=== PATIENT | male | born 1950 | race Caucasian/White ===

== ENCOUNTER 2016-09-19 00:44 | Inpatient (IN) | payer OTHER ==
[2016-09-19 02:13] LABS: Basophils % (Auto) 0.8 % (0.0-1.8); Eosinophils % (Auto) 2.8 % (0.0-4.3); Hematocrit 36.8 % (35.5-45.6); Hemoglobin 12.2 gm/dl (11.8-15.2); Mean Corpuscular HGB Conc 33 % (32-34); Mean Corpuscular Hemoglobin 30 pg (28-32); Mean Corpuscular Volume 91 fl (84-94); Platelet Count 260 K/mm3 (140-440); Red Blood Count 4.05 M/mm3 (3.65-5.03); White Blood Count 8.7 K/mm3 (4.5-11.0)
[2016-09-19 02:22] LABS: Anion Gap 14 mmol/L; BUN/Creatinine Ratio 29.09; Blood Urea Nitrogen 32 mg/dL (9-20); Calcium 9.7 mg/dL (8.4-10.2); Carbon Dioxide 31 mmol/L (22-30); Chloride 81.6 mmol/L (98-107); Potassium 4.3 mmol/L (3.6-5.0); Sodium 122 mmol/L (137-145)
[2016-09-19 02:26] LABS: Glucose 626 mg/dL (75-100)
--- NOTE | 2016-09-19 02:59 | XRay Report ---
FINAL REPORT PROCEDURE: XR CHEST ROUTINE 2V TECHNIQUE: PA and lateral chest radiographs were obtained. CPT 10258 HISTORY: COUGH/HEMOPTISIS COMPARISON: No prior studies are available for comparison. FINDINGS: Heart: Normal. Mediastinum/Vessels: There is a 3 centimeter right hilar mass.. Lungs/Pleural space: Lungs are expanded. There is a nodular density at the right lung base measuring 2 centimeters suggesting possible mass. Further evaluation with CT suggested. There are no discrete infiltrates.. Bony thorax: No acute osseous abnormality. Other: IMPRESSION: Right hilar and right lower lobe masses suspicious for malignancy. There are no discrete infiltrates. There are no effusions or pneumothoraces. The heart size is normal..
[2016-09-19] MEDS ORDERED: NACL 0.9% 1000 ML 1,000 ML IV ONE (03:59)
[2016-09-19] MEDS ORDERED: NACL ONE (06:29)
[2016-09-19] MEDS ORDERED: PROVENTIL IH ONE (06:36)
--- NOTE | 2016-09-19 06:40 | Emergency Department Report ---
ED Shortness of Breath HPI - General Chief Complaint: Dyspnea/Respdistress Stated Complaint: COUGHING BLOOD Time Seen by Provider: 09/19/16 06:10 Source: patient, family Mode of arrival: Ambulatory Limitations: Language Barrier (marketing education teacher was used.) - History of Present Illness Initial Comments: marketing education teacher used. 65-year-old male with past medical history of diabetes is presenting to the emergency department complaining of cough. Onset 3 days prior. No inciting factors such as travel. Patient states cough is dry intermittent, no worsening or relaxing factors.Family member of the last 24 hours he's had multiple episodes of hemoptysis with cough. Usually small amount of blood is seen. Patient was generalized weakness. Patient denies: Fever/chills, chest pain, abdominal pain, nausea/vomiting/diarrhea. MD Complaint: shortness of breath, cough -: Gradual, days(s) (3) Severity: moderate Quality: dull Consistency: intermittent Improves With: nothing Worsens With: nothing Associated Symptoms: pain with inspiration, cough, sputum production, hemoptysis - Related Data Home Medications Medication Instructions Recorded Confirmed Last Taken Amoxicillin [Trimox CAP] 500 mg PO Q8H 09/19/16 09/19/16 09/17/16 Dextrose [Glucose] 4 gm PO DAILY 09/19/16 09/19/16 09/17/16 Enalapril Maleate [Vasotec] 20 mg PO DAILY 09/19/16 09/19/16 09/17/16 Allergies Allergy/AdvReac Type Severity Reaction Status Date / Time No Known Allergies Allergy Verified 09/19/16 01:03 ED Review of Systems ROS: Stated complaint: COUGHING BLOOD Other details as noted in HPI Comment: All other systems reviewed and negative Respiratory: cough, shortness of breath. denies: orthopnea, SOB with exertion, SOB at rest, wheezing Cardiovascular: denies: chest pain, palpitations Gastrointestinal: denies: abdominal pain, nausea, vomiting ED Past Medical Hx - Past Medical History Previous Medical History?: Yes Hx Diabetes: Yes - Surgical History Past Surgical History?: No - Social History Smoking Status: Never Smoker Substance Use Type: None - Medications Home Medications: Home Medications Medication Instructions Recorded Confirmed Last Taken Type Amoxicillin [Trimox CAP] 500 mg PO Q8H 09/19/16 09/19/16 09/17/16 History Dextrose [Glucose] 4 gm PO DAILY 09/19/16 09/19/16 09/17/16 History Enalapril Maleate [Vasotec] 20 mg PO DAILY 09/19/16 09/19/16 09/17/16 History ED Physical Exam - General Limitations: Language Barrier General appearance: alert, in no apparent distress - Head Head exam: Present: atraumatic, normocephalic - Eye Eye exam: Present: normal appearance - ENT ENT exam: Present: mucous membranes moist - Neck Neck exam: Present: normal inspection - Respiratory Respiratory exam: Present: normal lung sounds bilaterally. Absent: respiratory distress, wheezes, rales, rhonchi, chest wall tenderness, accessory muscle use, decreased breath sounds - Cardiovascular Cardiovascular Exam: Present: regular rate, normal rhythm. Absent: systolic murmur, diastolic murmur, rubs, gallop - GI/Abdominal GI/Abdominal exam: Present: soft, normal bowel sounds - Rectal Rectal exam: Present: deferred - Extremities Exam Extremities exam: Present: normal inspection - Back Exam Back exam: Present: normal inspection - Neurological Exam Neurological exam: Present: alert, oriented X3 - Psychiatric Psychiatric exam: Present: normal affect, normal mood - Skin Skin exam: Present: warm, dry, intact, normal color. Absent: rash ED Course Vital Signs 09/19/16 09/19/16 09/19/16 01:03 03:05 04:00 Temperature 98.2 F 98.0 F Pulse Rate 85 65 87 Pulse Rate [ From Monitor] Respiratory 22 18 18 Rate Blood Pressure 144/74 Blood Pressure 171/74 148/59 [Left] Blood Pressure [Right Arm] O2 Sat by Pulse 95 100 98 Oximetry 09/19/16 09/19/16 09/19/16 06:00 07:54 08:38 Temperature 98.5 F Pulse Rate 85 106 H 105 H Pulse Rate [ From Monitor] Respiratory 18 20 Rate Blood Pressure Blood Pressure 155/69 125/71 [Left] Blood Pressure [Right Arm] O2 Sat by Pulse 98 93 Oximetry 09/19/16 09/19/16 09/19/16 08:45 09:56 12:00 Temperature 98.6 F 98.9 F Pulse Rate 108 H 94 H Pulse Rate [ 83 From Monitor] Respiratory 22 22 18 Rate Blood Pressure Blood Pressure 124/66 129/63 [Left] Blood Pressure 130/62 [Right Arm] O2 Sat by Pulse 100 97 96 Oximetry - Reevaluation(s) Reevaluation #1: 09/19/16 08:18 ese teacher ID # [id number] Reevaluation #2: 09/19/16 08:41 Patient has been admitted to the medicine service. ED Medical Decision Making - Lab Data Result diagrams: 09/23/16 03:10 09/23/16 03:10 - EKG Data -: EKG Interpreted by Me (105) EKG shows normal: sinus rhythm, axis (upright ), intervals (QTC: 504) Rate: tachycardia - EKG Data When compared to previous EKG there are: previous EKG unavailable Interpretation: other (PT EKG consistent with LBBB ) - Radiology Data Radiology results: report reviewed, image reviewed Final impression: There is no pulmonary embolism. There is no thoracic aortic dissection or aneurysm. There are multiple cavitating masses in the right lower lobe as well as small lesions in the right upper lobe and left lower lobe. Findings are suspicious for malignancy. Dr Surinder PENALOZA - Medical Decision Making 65-year-old male with past medical history of hypertension, diabetes presenting to the ED complaining of shortness of breath, hemoptysis. Symptoms are likely secondary to lung CA. Patient will be admitted to medicine service for further workup. Patient and Family agrees to plan.. - Differential Diagnosis PE, PNA, Dissection , DKA Critical Care Time: Yes Critical care attestation.: If time is entered above; I have spent that time in minutes in the direct care of this critically ill patient, excluding procedure time. Critical Care Time: 35 ED Disposition Clinical Impression: Cough, Hemoptysis, Lung mass, Shortness of breath, Hyperglycemia Disposition: OP ADMIT IP TO THIS HOSP Is pt being admited?: Yes Does the pt Need Aspirin: No Condition: Stable
--- NOTE | 2016-09-19 07:22 | Cat Scan Report ---
FINAL REPORT PROCEDURE: CT ANGIO CHEST TECHNIQUE: Computerized tomographic angiography of the chest was performed after the IV injection of iodinated nonionic contrast including image processing. The image data was postprocessed using 2-dimensional multiplanar reformatted (MPR) and 3-dimensional (MIP and/or volume rendered) techniques. HISTORY: right hilar mass and hemoptysis COMPARISON: Chest x-ray 7 FINDINGS: Heart and pericardium: Normal. Thoracic aorta: There is no aneurysm or dissection.. Pulmonary vasculature: There is no pulmonary embolism.. Lymph nodes: There is right hilar adenopathy. Lungs: There is a solid spiculated noncalcified mass in the anterior segment of the right upper lobe on image 80 measuring 13 millimeters. There are multiple masses and nodules in the right lower lung. The largest is approximately 2.8 centimeters in diameter. There are multiple cavitating mass is among these which suggests possibility of cavitating metastatic malignancy. Cavitating granulomas or septic emboli also considered but less likely. There are tiny nodular densities versus infiltrate in the superior segment of the left lower lung.. There is a 3 millimeter calcified granuloma at the left lung base. Pleural space: There is no pleural effusion or pneumothorax. Musculoskeletal structures: No significant abnormality. Upper abdominal structures: No significant abnormality. IMPRESSION: There is no pulmonary embolism. There is no thoracic aortic aneurysm or dissection. There are multiple cavitating masses in the right lower lobe as well as smaller lesions in the right upper lobe and left lower lobe. Findings are suspicious for malignancy.
--- NOTE | 2016-09-19 08:40 | Admit Criteria Form ---
Admission Criteria Documentation: PULMONARY DISEASE GRG Clinical Indications for Admission to Inpatient Care ( Place 'X' for any and all applicable criteria): Hospital admission is needed for appropriate care of the patient because of 1 or more of the following(1)(2): [ ]I. Impending or actual respiratory arrest. See Respiratory Failure GRG guideline for severe respiratory disease and long-term mechanical ventilation patients. (3)(4) (5) [ ]II. Severe airflow or ventilation abnormalities (not responsive to emergency and observation care treatment as appropriate) as indicated by 1 or more of the following (6)(7)(8)(9) : [ ]a) PCO2 greater than 42 mm Hg (5.6 kPa) and pH less than 7.35 (new) [ ]b) Documented PCO2 increased more than 5 mm Hg (0.7 kPa) from disease baseline [ ]c) Airflow measurements[A] less than 60% of previous best or predicted (eg, peak expiratory flow rate less than 300 L/min) despite intensive emergent treatment(B) [ ]d) Required respiratory treatments that are performable only in acute inpatient setting [ ]III. Severe respiratory findings (not responsive to emergency and observation care treatment as appropriate) including 1 or more of the following(6)(9)(10): [ ]a) Respiratory distress as indicated by ALL of the following(6)(11): [ ]i) Patient with 1 or more of the following: [X]1) Dyspnea (difficulty breathing) [ ]2) Tachypnea [ ]3) Abnormal breathing pattern (eg, chest retractions) [ ]4) Other evidence of difficulty breathing [ ]ii) Evidence of respiratory compromise indicated by 1 or more of the following: [ ]1) Hypoxemia [ ]2) Altered mental status [ ]3) Other evidence of respiratory compromise (eg, pulmonary edema on chest x-ray) [ ]b) Stridor [ ]c) Gross hemoptysis(12) [ ]d) Acute cyanosis [ ]IV. Chronic lung disease with severe deterioration (not responsive to emergency and observation care treatment as appropriate) as indicated by 1 or more of the following(7) (13): [ ]a) SaO2 5% below baseline in patient with chronic hypoxemia [ ]b) New requirement for supplemental oxygen to keep SaO2 at baseline or acceptable level [ ]c) Required supplemental oxygen performable only in acute inpatient setting [ ]d) Severe airflow or ventilation abnormalities [ ]e) Previouslymobile patient unable to walk between rooms [ ]f) Inability to eat or sleep due to dyspnea [ ]g) Altered mental status that is severe or persistent [ ]V. Empyema or lung abscess(14)(15) [ ]Vl. Severe atelectasis or lung collapse(16)(17) [ ]Galo. Tuberculosis requiring inpatient treatment as indicated by 1 or more of the following(18)(19)(20)(21): [ ]a) Diagnosis suspected (eg, symptomatic patient from endemic area or in high-risk population, with abnormal chest imaging) and cannot be ruled out within observation care timeframe (ie, sputum analysis, nucleic acid amplification techniques not rapidly available or not diagnostic) [ ]b) Severely symptomatic patient (eg, Hypoxemia, Hemodynamic instability, Tachypnea) [ ]c) Vzohv-wzys-dualzglzl infection suspected in newly diagnosed patient (eg, treatment regimen may require near-term adjustment) [ ]d) Newly diagnosed patient at high-risk of short-term deterioration (eg, HIV positive, frail, immunocompromised, chronic lung disease) [ ]e) High infectivity suspected (eg, laryngeal disease, cavitary pulmonary lesions, ongoing positivity of sputum) and 1 or more of the following: [ ]i) Unexposed household contacts at high risk (eg, immunocompromised, elderly, infants, chronic lung disease) [ ]ii) Patient unable or unwilling to avoid exposing others (eg, significant psychiatric disease, substance abuse, developmental disability) [ ]f) Complication of tuberculosis requiring inpatient treatment (eg , constrictive pericarditis, tubercular meningitis) [ ]g) Hospitalization mandated by public health authority (eg, patient continually noncompliant with directly observed therapy) [ ]VIII. High-risk pulmonary infection as indicated by 1 or more of the following(22)(23)(24)(25): [ ]a) Temperature less than 95 degrees F (35 degrees C) or greater than 103.1 degrees F (39.5 degrees C) [ ]b) Hemodynamic instability [ ]c) Immunocompromised patient (eg, AIDS, post transplant, neutropenic)(26)(27) [ ]d) History of severe COPD(28) [ ]e) History of severely symptomatic congestive heart failure(29) [ ]f) Other high-risk comorbidity (eg, poorly controlled diabetes, cirrhosis, chronic renal insufficiency) [ ]g) Hypoxemia [ ]h) severe stridor (30) [ ]i) Outpatient, observation, or recovery facility therapy has failed, is not appropriate, or is not feasible. [ ]IX. Complications of tracheostomy that remains after emergency or observation level care(31)(32)(33)(34) [ ]X. Respiratory complications of organ transplant (eg, rejection, respiratory failure, respiratory infection)(27) [ ]XI. Severe pulmonary arterial hypertension or pulmonary vascular disease requiring inpatient care indicated by 1 or more of the following(35)(36)(37)(38): [ ]a) Initiation or change of vasodilators (IV, subcutaneous, or inhaled) or other vasoactive medications needed [ ]b) IV anticoagulation needed (eg, immediate anticoagulation necessary, alternatives not appropriate) [ ]c) Arterial or pulmonary artery catheter monitoring needed due to infusion or other treatment [ ]XII. Cystic fibrosis requiring inpatient care as indicated by 1 or more of the following(39)(40): [ ]a) Severe exacerbation that does not respond to intensified home therapy(41) [ ]b) Severe exacerbation with patient unable to perform prescribed treatments at home [ ]c) Pneumonia [ ]d) Pneumothorax(42) [ ]e) Atelectasis [ ]f) Hemoptysis(43) [ ]XIII. Bronchiectasis requiring inpatient care as indicated by 1 or more of the following(44)(45): [ ]a) Respiratory distress [ ]b) Severe exacerbation and outpatient or observation care therapy has failed, is not appropriate, or is not feasible. [ ]XIV. Sarcoidosis requiring inpatient care as indicated by 1 or more of the following(46)(47)(48): [ ]a) Respiratory distress [ ]b) Cardiac involvement with arrhythmia(49) [ ]c) Outpatient or observation care therapy has failed, is not appropriate, or is not feasible. [ ]XV. Intestitial lung disease requiring inpatient care as indicated by 1 or more of the following(50)(51): [ ]a) Respiratory distress [ ]b) Severe exacerbation and outpatient or observation care therapy has failed, is not appropriate, or is not feasible [ ]XVI. Allergic pneumonitis requiring inpatient care as indicated by 1 or more of the following(52): [ ]a) Respiratory distress [ ]b) Acute eosinophilic pneumonia [ ]c) [place]urg Alyssa with cardiac involvement [ ]d) Outpatient or observation care therapy has failed, is not appropriate, or is not feasible [ ]XVIl. Severe right heart failure requiring inpatient care as indicated by 1 or more of the following(35)(53)(54): [ ]a) Respiratory distress [ ]b) Debilitating anasarca that remains after emergency or observation level care (eg, tissue [ ]c) breakdown with severe infection, inability to void due to edema) [C](41)(42)(43)(44) [ ]d) Hemodynamic instability [ ]e) Syncope [ ]f) Angina that requires inpatient care (eg, not treatable in emergency or observation level of care) [ ]g) Increasing organ failure (eg, liver congestion with significant and worsening or new elevation of transaminases) [ ]XVIll. Injury requiring inpatient care (medical) as indicated by 1 or more of the following(59)(60)(61) [ ]a) Significant inhalation injury (eg, smoke inhalation, other toxic inhalation)(62)(63)(64) [ ]b) Airway obstruction that remains or is unstable after emergency or observation level care(65)(66) [ ]c) Severe pain requiring acute inpatient management [ ]d) Lung contusion(67) [ ]e) Flail chest(68) [ ]f) Bronchial tree injury [ ]g) Air or fat emboli [ ]h) Other injury not treatable in emergency or observation level care (eg, hemothorax)(55) [ ]XlX. Pulmonary hemorrhage or significant hemoptysis(12)(43)(69) [ ]XXl. Complications of transplanted lung indicated by 1 or more of the following(70)(71) [ ]a) Acute graft rejection requiring inpatient management (eg, intravenous immunosuppression)(72)(73)(74) [ ]b) Failure of transplant lung as indicated by 1 or more of the following(75)(76): [ ]i) Anastomotic leak [ ]ii) Airway ischemia or necrosis [ ]iii) Airway fistula [ ]iv) Obstructing granulation tissue requiring intervention [ ]v) Bronchial stenosis or stricture requiring intervention [ ]vi) Tracheobronchomalacia requiring intervention [ ]vii) Severe airflow or ventilation abnormalities [ ]viii) Severe respiratory findings [ ]c) Infection requiring inpatient management (eg, Hemodynamic instability, need for intravenous antimicrobial treatment)(77)(78)(79)(80)(81)(82 [ ]d) Other complication of transplanted lung (eg, obliterative bronchiolitis, plastic bronchitis, thrombotic microangiopathy, constrictive pericarditis) requiring inpatient management(83)(84)(85)(86)(87) [ ]XXll. Inpatient palliative care needed.[D](88)(89)(90)(91) [ X]XXlll. Pulmonary Disease condition, symptom, or finding for which emergency and observation care have failed or are not considered appropriate. The original [facility] [employer] content created by [employer] has been revised. The portions of the content which have been revised are identified through the use of italic text or in bold, and [employer] has neither reviewed nor approved the modified material. All other unmodified content is copyright [facility] [employer]. Please see references footnoted in the original [facility] [employer] edition 2017 Admission Criteria Met: Yes
[2016-09-19] MEDS ORDERED: D50W (25GM) IV PRN (09:00)
[2016-09-19] MEDS ORDERED: NACL 0.9% 1000 ML 1,000 ML IV SCH (09:00)
[2016-09-19] MEDS ORDERED: TYLENOL PO PRN (09:00)
[2016-09-19] MEDS ORDERED: ZOFRAN IV PRN (09:00)
[2016-09-19] MEDS ORDERED: DULCOLAX PR PRN (09:00)
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
[2016-09-19] MEDS ORDERED: LEVAQUIN 500MG/100ML 500 MG/100 ML BAG IV SCH (10:00)
--- NOTE | 2016-09-19 10:14 | Cat Scan Report ---
CT ABDOMEN AND PELVIS WITHOUT CONTRAST INDICATION: Metastatic carcinoma. COMPARISON: CT chest from earlier today. FINDINGS: Noncontrast abdomen and pelvis CT performed, though demonstrates excreted contrast from earlier administration. LUNG BASES: Numerous cavitary lesions and non-cavitating foci/masses seen at the lung bases, greatest in the right lower lobe. Largest thickwalled cavitary lesion is approximately 1.8 cm on axial image 30, series 2 while subtle air-fluid level within similar such lesion also seen on axial image 11. Largest solid mass is approximately 2.9 cm posterior to the hilum, axial image 7. Small nodules also seen in the right middle lobe, the largest anterior cardiophrenic measuring 1.3 cm, axial image 32. Subtle left lower lobe interstitial nodularity also noted with slight atelectasis as also a 4 mm left lower lobe calcified granuloma, axial image 8. No effusions. Normal heart size. Air-filled distal esophageal prominence/thickening, not excluded for gastroesophageal reflux and/or hiatal hernia, amongst others. ABDOMEN: Please note that sensitivity to detect small visceral lesions is limited due to the absence of intravenous or oral contrast. Symmetric renal contrast excretion. No hydronephrosis. Tiny splenic calcified granuloma medially. Otherwise grossly unremarkable unenhanced liver, spleen, gallbladder, pancreas, adrenals, nonaneurysmal abdominal aorta and IVC. No ascites or size significant adenopathy. Nonopacified GI tract evaluation limited, though grossly nonobstructive. Mild to moderate colonic stool. PELVIS: Proximal sigmoid contains air, though mid to distal sigmoid decompressed and inadequately assessed with subtle wall thickening/prominence as on axial image 237, series 2 not excluded pathologic versus suboptimal distention related. Unremarkable rectum. Streak artifact from excreted urinary bladder contrast limits exam. Small prostatic calcifications. Prostate may be age-appropriate, though also correlated for clinically and with PSA. Unremarkable seminal vesicles. No free fluid or significant adenopathy. Approximately 1 cm borderline grade 2 anterolisthesis of L5 over S1 with severe disc narrowing. Bilateral L5 pars defects as well. Bilateral SI joint degenerative bridging with partial joint space obliteration, more so on the right. Left gluteal calcified injection granuloma. CONCLUSION: 1. Innumerable cavitating and non-cavitating lesions/masses at the imaged lung bases, greatest in the right lower lobe, as described. Neoplastic/metastatic versus infectious etiologies should primarily be considered, though exact cause remains unknown at this time. 2. Nonspecific mid to distal sigmoid CT appearance, as detailed above. Possible constipation as well. Followup on subsequent exams or further with sigmoidoscopy, as appropriate. 3. Various other incidental findings on this unenhanced exam, including severe L5-S1 degeneration, as described. Thank you for the opportunity to participate in this patient's care.
[2016-09-19] MEDS ORDERED: PROVENTIL IH PRN (11:00)
[2016-09-19] MEDS: LOVENOX SUB-Q SCH (11:56)
[2016-09-19] MEDS: NOVOLOG SUB-Q SCH ×3 (12:13→21:46)
[2016-09-19] MEDS: DUONEB *Not for PRN Use IH SCH ×2 (16:05→19:37)
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
[2016-09-19 16:40] LABS: Bilirubin,Urine NEG (Negative); Blood,Urine NEG (Negative); Ketones,Urine 20 mg/dL (Negative); Leukocyte Esterase,Urine NEG (Negative); Mucus,Urine FEW /HPF; Nitrite,Urine NEG (Negative); Protein,Urine <15 mg/dL mg/dL (Negative); Urobilinogen,Urine < 2.0 mg/dL (<2.0)
[2016-09-19] MEDS ORDERED: NOVOLOG SUB-Q ONE (18:38)
[2016-09-19] MEDS ORDERED: LEVEMIR SUB-Q SCH (22:00)
[2016-09-20] MEDS: DUONEB *Not for PRN Use IH SCH ×4 (01:35→19:55)
[2016-09-20 05:18] LABS: Hematocrit 36.9 % (35.5-45.6); Hemoglobin 12.5 gm/dl (11.8-15.2); Mean Corpuscular HGB Conc 34 % (32-34); Mean Corpuscular Hemoglobin 31 pg (28-32); Mean Corpuscular Volume 90 fl (84-94); Platelet Count 268 K/mm3 (140-440); Red Blood Count 4.08 M/mm3 (3.65-5.03); Red Cell Distribution Width 14.4 % (13.2-15.2); White Blood Count 14.2 K/mm3 (4.5-11.0)
[2016-09-20 05:33] LABS: BUN/Creatinine Ratio 44.28; Blood Urea Nitrogen 31 mg/dL (9-20); Carbon Dioxide 22 mmol/L (22-30); Chloride 97.6 mmol/L (98-107); Glucose 354 mg/dL (75-100); Potassium 4.3 mmol/L (3.6-5.0); Sodium 135 mmol/L (137-145)
[2016-09-20 06:21] LABS: Anion Gap 20 mmol/L
[2016-09-20 07:47] LABS: Basophils % (Manual) 0 % (0.0-1.8); Blastocytes % (Manual) 0 %; Eosinophils % (Manual) 0 % (0.0-4.3)
[2016-09-20 07:48] LABS: RBC Morphology Normal
[2016-09-20 07:49] LABS: Diff Status Complete
[2016-09-20] MEDS: NOVOLOG SUB-Q SCH ×4 (07:56→23:01)
[2016-09-20] MEDS: ZESTRIL PO SCH (09:35)
[2016-09-20] MEDS: LOVENOX SUB-Q SCH (09:36)
[2016-09-20] MEDS ORDERED: NON-FORMULARY (Enalapril Maleate [Vasotec] 20 MG) PO SCH (10:00)
--- NOTE | 2016-09-20 11:45 | Progress Note ---
Subjective Date of service: 09/20/16 Interval history: Assessment and plan: Multiple cavitary and non-cavitary lung masses: Right more than left Rule out lung cancer Pulmonary and oncology consults were requested. Notes pending He has been a smoker but apparently quit smoking 20 years ago New onset uncontrolled diabetes: Continue insulin sliding scale coverage. We will increase basal insulin to 12 units of NPH twice daily Hyperosmolar nonketotic state : Blood sugars trending down but still poorly controlled. Continue sliding-scale coverage and basal insulin Hypernatremia: Secondary to severe hyperglycemia. This has resolved Weight loss and failure to thrive: Likely secondary to lung neoplasm. Await oncology and pulmonary evaluations Hypertension: Well-controlled. Continue ACEI Subjective: Patient is awake and alert. No apparent distress Family in the room Has occasional blood streaks when he coughs up but states this has significantly improved Complains of pain in the chest lower back and over the right scapular area Objective - Constitutional Vitals: Vital Signs - 12hr 09/20/16 09/20/16 09/20/16 01:36 08:52 09:09 Temperature Pulse Rate Pulse Rate [ 78 82 81 Bilateral Upper Lobe] Pulse Rate [ From Monitor] Respiratory Rate Respiratory 15 16 18 Rate [Bilateral Upper Lobe] Blood Pressure Blood Pressure [Right Arm] O2 Sat by Pulse Oximetry 09/20/16 09/20/16 09:35 10:00 Temperature 97.7 F Pulse Rate 63 Pulse Rate [ Bilateral Upper Lobe] Pulse Rate [ 64 From Monitor] Respiratory 18 Rate Respiratory Rate [Bilateral Upper Lobe] Blood Pressure 148/49 Blood Pressure 148/49 [Right Arm] O2 Sat by Pulse 96 Oximetry General appearance: Present: no acute distress - EENT Eyes: PERRL, EOM intact ENT: hearing intact, clear oral mucosa, no thrush - Neck Neck: supple, normal ROM - Respiratory Respiratory effort: normal Respiratory: bilateral: CTA - Cardiovascular Rhythm: regular Heart Sounds: Present: S1 & S2 Extremities: No edema - Gastrointestinal General gastrointestinal: Present: soft, non-tender. Absent: hepatomegaly, splenomegaly Rectal Exam: deferred - Integumentary Integumentary: clear, no rash - Musculoskeletal Musculoskeletal: strength equal bilaterally - Neurologic Neurologic: CNII-XII intact, no focal deficits - Labs CBC & Chem 7: 09/20/16 04:12 09/20/16 04:12 Labs: Abnormal lab results 09/19/16 09/19/16 09/19/16 Range/Units 11:59 16:44 18:06 WBC (4.5-11.0) K/mm3 Seg Neuts % (Manual) (40.0-70.0) % Lymphocytes % (Manual) (13.4-35.0) % Seg Neutrophils # Man (1.8-7.7) K/mm3 Lymphocytes # (Manual) (1.2-5.4) K/mm3 Sodium (137-145) mmol/L Chloride (98-107) mmol/L BUN (9-20) mg/dL Creatinine (0.8-1.5) mg/dL Glucose (75-100) mg/dL POC Glucose 321 H 479 H > 500 H (70-105) 09/19/16 09/19/16 09/20/16 Range/Units 20:58 22:38 04:12 WBC 14.2 H (4.5-11.0) K/mm3 Seg Neuts % (Manual) 93.0 H (40.0-70.0) % Lymphocytes % (Manual) 3.0 L (13.4-35.0) % Seg Neutrophils # Man 13.2 H (1.8-7.7) K/mm3 Lymphocytes # (Manual) 0.4 L (1.2-5.4) K/mm3 Sodium (137-145) mmol/L Chloride (98-107) mmol/L BUN (9-20) mg/dL Creatinine (0.8-1.5) mg/dL Glucose (75-100) mg/dL POC Glucose > 500 H 404 H (70-105) 09/20/16 09/20/16 Range/Units 04:12 07:37 WBC (4.5-11.0) K/mm3 Seg Neuts % (Manual) (40.0-70.0) % Lymphocytes % (Manual) (13.4-35.0) % Seg Neutrophils # Man (1.8-7.7) K/mm3 Lymphocytes # (Manual) (1.2-5.4) K/mm3 Sodium 135 L D (137-145) mmol/L Chloride 97.6 L (98-107) mmol/L BUN 31 H (9-20) mg/dL Creatinine 0.7 L (0.8-1.5) mg/dL Glucose 354 H (75-100) mg/dL POC Glucose 362 H (70-105)
[2016-09-20] MEDS ORDERED: NACL ONE (15:26)
--- NOTE | 2016-09-20 16:48 | Cat Scan Report ---
FINAL REPORT PROCEDURE: CT ABDOMEN PELVIS W CON TECHNIQUE: Computerized axial tomography of the abdomen and pelvis was performed after the IV injection of iodinated nonionic contrast. HISTORY: malignancy workup, fatigue, lung masses COMPARISON: 09/19/2016 FINDINGS: Visualized lower thorax: Numerous cavitary masses are again noted in the lung bases. Liver: Geographic low attenuation in the left hepatic lobe abutting the fissure is favored to be related to focal fatty infiltration. No enhancing masses are seen. Spleen: Normal size and attenuation. Gallbladder and biliary system: Normal. Pancreas: Normal. Adrenals: Normal. Kidneys: Normal. GI tract: No obvious mass is identified, however direct visualization with colonoscopy would be more sensitive. There is a large volume of stool seen throughout the colon, compatible with constipation. The appendix is visualized and does not appear inflamed. No evidence of bowel obstruction or acute inflammation. Lymph nodes and mesentery: Normal. Vasculature: Normal. Bladder: Normal. Reproductive organs: Prominent prostate gland, which measures up to 5.5 centimeters transverse. Peritoneum: No free fluid. Musculoskeletal structures: 3 millimeter sclerotic focus in the proximal right femur is nonspecific and could be a bone island. Bilateral L5 pars interarticularis defects with 1 centimeter anterolisthesis of L5 on S1. Other: None. IMPRESSION: As seen previously there are numerous lung base cavitary masses present, which may be related to metastatic disease or possibly infectious process. Less commonly, entity such as Mary Kate's granulomatosis can present with numerous cavitary lung nodules. Constipation. No discrete colonic mass is seen, however direct visualization with colonoscopy would be more sensitive. Prominent prostate gland
--- NOTE | 2016-09-20 17:44 | Progress Note ---
Assessment and Plan - Patient Problems (1) Cough Current Visit: Yes Status: Acute Plan to address problem: - equivocal story of prior r/o TB - will need to r/o TB here as still coughing and expectorating - PPD placed (2) Hemoptysis Current Visit: Yes Status: Acute Plan to address problem: - persistent but streaky - treat pneumonia empirically - follow AFB smears (3) Lung mass Current Visit: Yes Status: Acute Plan to address problem: - treat empirically - r/o TB - consider needle biopsy thereafter for persistent peripheral nodules (4) Pneumonia Current Visit: Yes Status: Acute Qualifiers: Pneumonia type: P Aspiration pneumonia type: A Laterality: L Lung location: L Plan to address problem: - continue current AB's - get ID input Subjective Date of service: 09/20/16 Principal diagnosis: Cavitory Pneumonia (? Aspiration); Hemoptysis (R/O TB) Interval history: Seen and examined at bedside; 24 hour events reviewed; nursing and respiratory care staff consulted; no adverse overnight events reported to me; resting peacefuly; still with streaky hemoptysis; no N/V/F/C Objective Vital Signs - 12hr 09/20/16 09/20/16 09/20/16 08:52 09:09 09:35 Temperature Pulse Rate 63 Pulse Rate [ Anterior Bilateral Throughout] Pulse Rate [ 82 81 Bilateral Upper Lobe] Pulse Rate [ From Monitor] Respiratory Rate Respiratory Rate [Anterior Bilateral Throughout] Respiratory 16 18 Rate [Bilateral Upper Lobe] Blood Pressure 148/49 Blood Pressure [Right Arm] O2 Sat by Pulse Oximetry 09/20/16 09/20/16 09/20/16 10:00 14:14 14:30 Temperature 97.7 F Pulse Rate Pulse Rate [ 74 95 H Anterior Bilateral Throughout] Pulse Rate [ Bilateral Upper Lobe] Pulse Rate [ 89 From Monitor] Respiratory 20 Rate Respiratory 16 18 Rate [Anterior Bilateral Throughout] Respiratory Rate [Bilateral Upper Lobe] Blood Pressure Blood Pressure 148/49 [Right Arm] O2 Sat by Pulse 95 Oximetry Constitutional: no acute distress, alert Eyes: non-icteric ENT: oropharynx moist Neck: supple, no lymphadenopathy Effort: mildly labored Ascultation: Bilateral: rales (RLL) Cardiovascular: regular rate and rhythm Gastrointestinal: normoactive bowel sounds, soft, non-tender, non-distended Integumentary: normal Extremities: no cyanosis, no edema, pulses normal, no ischemia or petechiae Neurologic: normal mental status, non-focal exam Psychiatric: mood appropriate, affect normal CBC and BMP: 09/21/16 07:49 09/21/16 07:49 Abnormal lab findings: Abnormal Labs 09/19/16 09/19/16 09/19/16 11:59 16:44 18:06 WBC Seg Neuts % (Manual) Lymphocytes % (Manual) Seg Neutrophils # Man Lymphocytes # (Manual) Sodium Chloride BUN Creatinine Glucose POC Glucose 321 H 479 H > 500 H 09/19/16 09/19/16 09/20/16 20:58 22:38 04:12 WBC 14.2 H Seg Neuts % (Manual) 93.0 H Lymphocytes % (Manual) 3.0 L Seg Neutrophils # Man 13.2 H Lymphocytes # (Manual) 0.4 L Sodium Chloride BUN Creatinine Glucose POC Glucose > 500 H 404 H 09/20/16 09/20/16 09/20/16 04:12 07:37 11:41 WBC Seg Neuts % (Manual) Lymphocytes % (Manual) Seg Neutrophils # Man Lymphocytes # (Manual) Sodium 135 L D Chloride 97.6 L BUN 31 H Creatinine 0.7 L Glucose 354 H POC Glucose 362 H 415 H 09/20/16 16:25 WBC Seg Neuts % (Manual) Lymphocytes % (Manual) Seg Neutrophils # Man Lymphocytes # (Manual) Sodium Chloride BUN Creatinine Glucose POC Glucose [address] scan - chest: image reviewed
[2016-09-20] MEDS ORDERED: APLISOL ID ONE (19:45)
[2016-09-20] MEDS: ZOSYN/NS 4.5GM/100ML 4.5 GM/100 ML VIAL IV SCH (22:46)
[2016-09-21] MEDS: DUONEB *Not for PRN Use IH SCH ×4 (01:51→19:21)
[2016-09-21] MEDS: ZOSYN/NS 4.5GM/100ML 4.5 GM/100 ML VIAL IV SCH ×3 (04:14→20:01)
[2016-09-21] MEDS: NOVOLOG SUB-Q SCH ×4 (07:53→21:31)
[2016-09-21 08:08] LABS: Hemoglobin 12.3 gm/dl (11.8-15.2); Mean Corpuscular HGB Conc 34 % (32-34); Mean Corpuscular Hemoglobin 31 pg (28-32); Mean Corpuscular Volume 91 fl (84-94); Platelet Count 257 K/mm3 (140-440); Red Blood Count 3.95 M/mm3 (3.65-5.03); Red Cell Distribution Width 14.2 % (13.2-15.2); White Blood Count 10.9 K/mm3 (4.5-11.0)
[2016-09-21 08:28] LABS: Anion Gap 17 mmol/L; BUN/Creatinine Ratio 31.11; Blood Urea Nitrogen 28 mg/dL (9-20); Calcium 8.7 mg/dL (8.4-10.2); Carbon Dioxide 26 mmol/L (22-30); Chloride 100.4 mmol/L (98-107); Glucose 139 mg/dL (75-100); Potassium 5.2 mmol/L (3.6-5.0); Sodium 138 mmol/L (137-145)
[2016-09-21] MEDS ORDERED: KIONEX PO ONE (09:00)
[2016-09-21] MEDS: ZESTRIL PO SCH (09:36)
[2016-09-21] MEDS: LOVENOX SUB-Q SCH (09:36)
[2016-09-21 10:23] LABS: HIV-1 Antigen p24 Non React (Non React); HIVR-1/2 Ab Non React (Non React)
--- NOTE | 2016-09-21 15:45 | Progress Note ---
Assessment and Plan Assessment and plan: Patient admitted for chronic chronic cough CT showed multiple cavitary mass lesions Patient is being worked up for TB, pneumonia and lung cancer Sputum for AFB Patient is on IV antibiotic Pulmonary and hematology/ oncology consulted DVT prophylaxis - Mechanical because of blood mixed sputum Disposition - Continue inpatient care History Interval history: Patient was seen and evaluated this morning, patient said he has been coughing up blood mixed sputum. Hospitalist Physical - Physical exam Narrative exam: Not in cardiopulmonary distress. The patient appeared well nourished and normally developed. Vital signs as documented. Head exam is unremarkable. No scleral icterus . Neck is without jugular venous distension, thyromegaly, or carotid bruits. Lungs are clear to auscultation. Cardiac exam reveals regular rate and Rhythm. First and second heart sounds normal. No murmurs, rubs or gallops. Abdominal exam reveals normal bowel sounds, no masses, no organomegaly and no aortic enlargement. Extremities are nonedematous and both femoral and pedal pulses are normal. NYLON WINDER: Alert and oriented 3. No focal weakness. - Constitutional Vitals: Temp Pulse Resp BP Pulse Ox 97.3 F L 66 18 122/57 96 09/21/16 10:00 09/21/16 10:00 09/21/16 10:00 09/21/16 10:00 09/21/16 10:00 General appearance: Present: no acute distress Results - Labs CBC & Chem 7: 09/21/16 07:49 09/21/16 07:49 Labs: Laboratory Last Values WBC 10.9 K/mm3 (4.5-11.0) 09/21/16 07:49 RBC 3.95 M/mm3 (3.65-5.03) 09/21/16 07:49 Hgb 12.3 gm/dl (11.8-15.2) 09/21/16 07:49 Hct 36.0 % (35.5-45.6) 09/21/16 07:49 MCV 91 fl (84-94) 09/21/16 07:49 MCH 31 pg (28-32) 09/21/16 07:49 MCHC 34 % (32-34) 09/21/16 07:49 RDW 14.2 % (13.2-15.2) 09/21/16 07:49 Plt Count 257 K/mm3 (140-440) 09/21/16 07:49 Lymph % (Auto) 18.4 % (13.4-35.0) 09/19/16 01:49 [place] % (Auto) 8.8 % (0.0-7.3) H 09/19/16 01:49 Eos % (Auto) 2.8 % (0.0-4.3) 09/19/16 01:49 Baso % (Auto) 0.8 % (0.0-1.8) 09/19/16 01:49 Lymph # 1.6 K/mm3 (1.2-5.4) 09/19/16 01:49 [place] # 0.8 K/mm3 (0.0-0.8) 09/19/16 01:49 Eos # 0.2 K/mm3 (0.0-0.4) 09/19/16 01:49 Baso # 0.1 K/mm3 (0.0-0.1) 09/19/16 01:49 Add Manual Diff Complete 09/20/16 04:12 Total Counted 100 09/20/16 04:12 Seg Neutrophils % [employer] 09/20/16 04:12 Seg Neuts % (Manual) 93.0 % (40.0-70.0) H 09/20/16 04:12 Band Neutrophils % 0 % 09/20/16 04:12 Lymphocytes % (Manual) 3.0 % (13.4-35.0) L 09/20/16 04:12 Reactive Lymphs % (Man) 0 % 09/20/16 04:12 Monocytes % (Manual) 4.0 % (0.0-7.3) 09/20/16 04:12 Eosinophils % (Manual) 0 % (0.0-4.3) 09/20/16 04:12 Basophils % (Manual) 0 % (0.0-1.8) 09/20/16 04:12 Metamyelocytes % 0 % 09/20/16 04:12 Myelocytes % 0 % 09/20/16 04:12 Promyelocytes % 0 % 09/20/16 04:12 Blast Cells % 0 % 09/20/16 04:12 Nucleated RBC % Not Reportable 09/20/16 04:12 Seg Neutrophils # 6.0 K/mm3 (1.8-7.7) 09/19/16 01:49 Seg Neutrophils # Man 13.2 K/mm3 (1.8-7.7) H 09/20/16 04:12 Band Neutrophils # 0.0 K/mm3 09/20/16 04:12 Lymphocytes # (Manual) 0.4 K/mm3 (1.2-5.4) L 09/20/16 04:12 Abs React Lymphs (Man) 0.0 K/mm3 09/20/16 04:12 Monocytes # (Manual) 0.6 K/mm3 (0.0-0.8) 09/20/16 04:12 Eosinophils # (Manual) 0.0 K/mm3 (0.0-0.4) 09/20/16 04:12 Basophils # (Manual) 0.0 K/mm3 (0.0-0.1) 09/20/16 04:12 Metamyelocytes # 0.0 K/mm3 09/20/16 04:12 Myelocytes # 0.0 K/mm3 09/20/16 04:12 Promyelocytes # 0.0 K/mm3 09/20/16 04:12 Blast Cells # 0.0 K/mm3 09/20/16 04:12 WBC Morphology Not Reportable 09/20/16 04:12 Hypersegmented Neuts Not Reportable 09/20/16 04:12 Hyposegmented Neuts Not Reportable 09/20/16 04:12 Hypogranular Neuts Not Reportable 09/20/16 04:12 Smudge Cells Not Reportable 09/20/16 04:12 Toxic Granulation Not Reportable 09/20/16 04:12 Toxic Vacuolation Not Reportable 09/20/16 04:12 Dohle Bodies Not Reportable 09/20/16 04:12 Pelger-Huet Anomaly Not Reportable 09/20/16 04:12 Lalit Rods Not Reportable 09/20/16 04:12 Platelet Estimate Appears normal 09/20/16 04:12 Clumped Platelets Not Reportable 09/20/16 04:12 Plt Clumps, EDTA Not Reportable 09/20/16 04:12 Large Platelets Not Reportable 09/20/16 04:12 Giant Platelets Not Reportable 09/20/16 04:12 Platelet Satelliting Not Reportable 09/20/16 04:12 Plt Morphology Comment Not Reportable 09/20/16 04:12 RBC Morphology Normal 09/20/16 04:12 Dimorphic RBCs Not Reportable 09/20/16 04:12 Polychromasia Not Reportable 09/20/16 04:12 Hypochromasia Not Reportable 09/20/16 04:12 Poikilocytosis Not Reportable 09/20/16 04:12 Anisocytosis Not Reportable 09/20/16 04:12 Microcytosis Not Reportable 09/20/16 04:12 Macrocytosis Not Reportable 09/20/16 04:12 Spherocytes Not Reportable 09/20/16 04:12 Pappenheimer Bodies Not Reportable 09/20/16 04:12 Sickle Cells Not Reportable 09/20/16 04:12 Target Cells Not Reportable 09/20/16 04:12 Tear Drop Cells Not Reportable 09/20/16 04:12 Ovalocytes Not Reportable 09/20/16 04:12 Helmet Cells Not Reportable 09/20/16 04:12 [place] Bodies Not Reportable 09/20/16 04:12 [place] Rings Not Reportable 09/20/16 04:12 [place] Cells Not Reportable 09/20/16 04:12 Bite Cells Not Reportable 09/20/16 04:12 Crenated Cell Not Reportable 09/20/16 04:12 Elliptocytes Not Reportable 09/20/16 04:12 Acanthocytes (Spur) Not Reportable 09/20/16 04:12 Rouleaux Not Reportable 09/20/16 04:12 Hemoglobin C Crystals Not Reportable 09/20/16 04:12 Schistocytes Not Reportable 09/20/16 04:12 Malaria parasites Not Reportable 09/20/16 04:12 [place] Bodies Not Reportable 09/20/16 04:12 Hem Pathologist Commnt No 09/20/16 04:12 VBG pH 7.500 (7.320-7.420) H 09/19/16 03:04 Sodium 138 mmol/L (137-145) 09/21/16 07:49 Potassium 5.2 mmol/L (3.6-5.0) H D 09/21/16 07:49 Chloride 100.4 mmol/L (98-107) 09/21/16 07:49 Carbon Dioxide 26 mmol/L (22-30) 09/21/16 07:49 Anion Gap 17 mmol/L 09/21/16 07:49 BUN 28 mg/dL (9-20) H 09/21/16 07:49 Creatinine 0.9 mg/dL (0.8-1.5) 09/21/16 07:49 Estimated GFR > 60 ml/min 09/21/16 07:49 BUN/Creatinine Ratio 31.11 % 09/21/16 07:49 Glucose 139 mg/dL (75-100) H 09/21/16 07:49 POC Glucose 307 (70-105) H 09/21/16 11:50 Hemoglobin A1c 12.6 % (4-6) H 09/21/16 07:49 Calcium 8.7 mg/dL (8.4-10.2) 09/21/16 07:49 Troponin T < 0.010 ng/mL (0.00-0.029) 09/19/16 07:03 C-Reactive Protein 1.60 mg/dL (0.00-1.30) H 09/20/16 17:53 NT-Pro-B Natriuret Pep 280.0 pg/mL (0-900) 09/19/16 07:03 Urine Color Straw (Yellow) 09/19/16 Unknown Urine Turbidity Clear (Clear) 09/19/16 Unknown Urine pH 5.0 (5.0-7.0) 09/19/16 Unknown Ur Specific [place] 1.030 (1.003-1.030) 09/19/16 Unknown Urine Protein <15 mg/dl mg/dL (Negative) 09/19/16 Unknown Urine Glucose (UA) >=500 mg/dL (Negative) 09/19/16 Unknown Urine Ketones 20 mg/dL (Negative) 09/19/16 Unknown Urine Blood Neg (Negative) 09/19/16 Unknown Urine Nitrite Neg (Negative) 09/19/16 Unknown Urine Bilirubin Neg (Negative) 09/19/16 Unknown Urine Urobilinogen < 2.0 mg/dL (<2.0) 09/19/16 Unknown Ur Leukocyte Esterase Neg (Negative) 09/19/16 Unknown Urine WBC (Auto) 0.0 /HPF (0.0-6.0) 09/19/16 Unknown Urine RBC (Auto) 1.0 /HPF (0.0-6.0) 09/19/16 Unknown Urine Mucus Few /HPF 09/19/16 Unknown HIV 1&2 Antibody Rapid Non react (Non React) 09/21/16 09:18 HIV P24 Antigen Non react (Non React) 09/21/16 09:18
--- NOTE | 2016-09-21 18:42 | Progress Note ---
Subjective Date of service: 09/21/16 Principal diagnosis: Cavitory Pneumonia (? Aspiration); Hemoptysis (R/O TB) Interval history: Seen and examined at bedside; 24 hour events reviewed; nursing and respiratory care staff consulted; no adverse overnight events reported to me; still awaiting 2D ECHO; Objective Vital Signs - 12hr 09/21/16 09/21/16 09/21/16 08:35 08:50 09:36 Temperature Pulse Rate 66 Pulse Rate [ 98 H 102 H Anterior Bilateral Throughout] Pulse Rate [ From Monitor] Respiratory Rate Respiratory 18 20 Rate [Anterior Bilateral Throughout] Blood Pressure 122/57 Blood Pressure [Right Arm] O2 Sat by Pulse Oximetry 09/21/16 09/21/16 09/21/16 10:00 14:45 15:05 Temperature 97.3 F L Pulse Rate Pulse Rate [ 106 H 104 H Anterior Bilateral Throughout] Pulse Rate [ 66 From Monitor] Respiratory 18 Rate Respiratory 18 18 Rate [Anterior Bilateral Throughout] Blood Pressure Blood Pressure 122/57 [Right Arm] O2 Sat by Pulse 96 Oximetry CBC and BMP: 09/21/16 07:49 09/21/16 07:49 Abnormal lab findings: Abnormal Labs 09/19/16 09/19/16 09/19/16 11:59 16:44 18:06 WBC Seg Neuts % (Manual) Lymphocytes % (Manual) Seg Neutrophils # Man Lymphocytes # (Manual) Sodium Potassium Chloride BUN Creatinine Glucose POC Glucose 321 H 479 H > 500 H Hemoglobin A1c C-Reactive Protein 09/19/16 09/19/16 09/20/16 20:58 22:38 04:12 WBC 14.2 H Seg Neuts % (Manual) 93.0 H Lymphocytes % (Manual) 3.0 L Seg Neutrophils # Man 13.2 H Lymphocytes # (Manual) 0.4 L Sodium Potassium Chloride BUN Creatinine Glucose POC Glucose > 500 H 404 H Hemoglobin A1c C-Reactive Protein 09/20/16 09/20/16 09/20/16 04:12 07:37 11:41 WBC Seg Neuts % (Manual) Lymphocytes % (Manual) Seg Neutrophils # Man Lymphocytes # (Manual) Sodium 135 L D Potassium Chloride 97.6 L BUN 31 H Creatinine 0.7 L Glucose 354 H POC Glucose 362 H 415 H Hemoglobin A1c C-Reactive Protein 09/20/16 09/20/16 09/21/16 16:25 17:53 07:31 WBC Seg Neuts % (Manual) Lymphocytes % (Manual) Seg Neutrophils # Man Lymphocytes # (Manual) Sodium Potassium Chloride BUN Creatinine Glucose POC Glucose 313 H 139 H Hemoglobin A1c C-Reactive Protein 1.60 H 09/21/16 09/21/16 09/21/16 07:49 07:49 11:50 WBC Seg Neuts % (Manual) Lymphocytes % (Manual) Seg Neutrophils # Man Lymphocytes # (Manual) Sodium Potassium 5.2 H D Chloride BUN 28 H Creatinine Glucose 139 H POC Glucose 307 H Hemoglobin A1c 12.6 H C-Reactive Protein 09/21/16 17:09 WBC Seg Neuts % (Manual) Lymphocytes % (Manual) Seg Neutrophils # Man Lymphocytes # (Manual) Sodium Potassium Chloride BUN Creatinine Glucose POC Glucose 203 H Hemoglobin A1c C-Reactive Protein
[2016-09-21] MEDS: TYLENOL PO PRN (21:29)
[2016-09-22] MEDS ORDERED: D50W (25GM) IV PRN ×2 (00:28→00:36)
[2016-09-22] MEDS: DUONEB *Not for PRN Use IH SCH ×4 (02:17→19:57)
[2016-09-22] MEDS: ZOSYN/NS 4.5GM/100ML 4.5 GM/100 ML VIAL IV SCH ×3 (03:14→19:57)
[2016-09-22 06:24] LABS: Basophils % (Auto) 0.3 % (0.0-1.8); Eosinophils % (Auto) 1.3 % (0.0-4.3); Hematocrit 35.6 % (35.5-45.6); Mean Corpuscular HGB Conc 34 % (32-34); Mean Corpuscular Hemoglobin 31 pg (28-32); Mean Corpuscular Volume 92 fl (84-94); Platelet Count 245 K/mm3 (140-440); Red Blood Count 3.88 M/mm3 (3.65-5.03); Red Cell Distribution Width 14.7 % (13.2-15.2); White Blood Count 6.9 K/mm3 (4.5-11.0)
[2016-09-22 06:59] LABS: Anion Gap 18 mmol/L; BUN/Creatinine Ratio 23.75; Blood Urea Nitrogen 19 mg/dL (9-20); Calcium 8.5 mg/dL (8.4-10.2); Carbon Dioxide 25 mmol/L (22-30); Chloride 99.6 mmol/L (98-107); Glucose 255 mg/dL (75-100); Potassium 4.6 mmol/L (3.6-5.0); Sodium 138 mmol/L (137-145)
[2016-09-22] MEDS: NOVOLOG SUB-Q SCH ×4 (08:19→22:02)
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
[2016-09-22] MEDS: LOVENOX SUB-Q SCH (09:41)
[2016-09-22] MEDS: ZESTRIL PO SCH (09:41)
--- NOTE | 2016-09-22 14:48 | Progress Note ---
Assessment and Plan Assessment and plan: Patient admitted for chronic chronic cough CT showed multiple cavitary mass lesions Patient is being worked up for TB, pneumonia and lung cancer Sputum for AFB Patient is on IV antibiotic Pulmonary and hematology/ oncology consult appreciated\ DM2 - uncontrolled - Increased his 70/30 - Will follow and adjusted him as needed DVT prophylaxis - On Lovenox Disposition - Continue inpatient care History Interval history: Patient was seen and evaluated this morning, patient said he has been coughing up blood stricked sputum. Hospitalist Physical - Physical exam Narrative exam: Not in cardiopulmonary distress. The patient appeared well nourished and normally developed. Vital signs as documented. Head exam is unremarkable. No scleral icterus . Neck is without jugular venous distension, thyromegaly, or carotid bruits. Lungs are clear to auscultation. Cardiac exam reveals regular rate and Rhythm. First and second heart sounds normal. No murmurs, rubs or gallops. Abdominal exam reveals normal bowel sounds, no masses, no organomegaly and no aortic enlargement. Extremities are nonedematous and both femoral and pedal pulses are normal. 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 No focal weakness. - Constitutional Vitals: Temp Pulse Resp BP Pulse Ox 97.2 F L 64 16 132/62 96 09/22/16 09:41 09/22/16 09:41 09/22/16 10:00 09/22/16 09:41 09/21/16 20:00 General appearance: Present: no acute distress Results - Labs CBC & Chem 7: 09/22/16 05:25 09/22/16 05:25 Labs: Laboratory Last Values WBC 6.9 K/mm3 (4.5-11.0) 09/22/16 05:25 RBC 3.88 M/mm3 (3.65-5.03) 09/22/16 05:25 Hgb 12.0 gm/dl (11.8-15.2) 09/22/16 05:25 Hct 35.6 % (35.5-45.6) 09/22/16 05:25 MCV 92 fl (84-94) 09/22/16 05:25 MCH 31 pg (28-32) 09/22/16 05:25 MCHC 34 % (32-34) 09/22/16 05:25 RDW 14.7 % (13.2-15.2) 09/22/16 05:25 Plt Count 245 K/mm3 (140-440) 09/22/16 05:25 Lymph % (Auto) 12.1 % (13.4-35.0) L 09/22/16 05:25 [place] % (Auto) 14.6 % (0.0-7.3) H 09/22/16 05:25 Eos % (Auto) 1.3 % (0.0-4.3) 09/22/16 05:25 Baso % (Auto) 0.3 % (0.0-1.8) 09/22/16 05:25 Lymph # 0.8 K/mm3 (1.2-5.4) L 09/22/16 05:25 [place] # 1.0 K/mm3 (0.0-0.8) H 09/22/16 05:25 Eos # 0.1 K/mm3 (0.0-0.4) 09/22/16 05:25 Baso # 0.0 K/mm3 (0.0-0.1) 09/22/16 05:25 Add Manual Diff Complete 09/20/16 04:12 Total Counted 100 09/20/16 04:12 Seg Neutrophils % 71.7 % (40.0-70.0) H 09/22/16 05:25 Seg Neuts % (Manual) 93.0 % (40.0-70.0) H 09/20/16 04:12 Band Neutrophils % 0 % 09/20/16 04:12 Lymphocytes % (Manual) 3.0 % (13.4-35.0) L 09/20/16 04:12 Reactive Lymphs % (Man) 0 % 09/20/16 04:12 Monocytes % (Manual) 4.0 % (0.0-7.3) 09/20/16 04:12 Eosinophils % (Manual) 0 % (0.0-4.3) 09/20/16 04:12 Basophils % (Manual) 0 % (0.0-1.8) 09/20/16 04:12 Metamyelocytes % 0 % 09/20/16 04:12 Myelocytes % 0 % 09/20/16 04:12 Promyelocytes % 0 % 09/20/16 04:12 Blast Cells % 0 % 09/20/16 04:12 Nucleated RBC % Not Reportable 09/20/16 04:12 Seg Neutrophils # 5.0 K/mm3 (1.8-7.7) 09/22/16 05:25 Seg Neutrophils # Man 13.2 K/mm3 (1.8-7.7) H 09/20/16 04:12 Band Neutrophils # 0.0 K/mm3 09/20/16 04:12 Lymphocytes # (Manual) 0.4 K/mm3 (1.2-5.4) L 09/20/16 04:12 Abs React Lymphs (Man) 0.0 K/mm3 09/20/16 04:12 Monocytes # (Manual) 0.6 K/mm3 (0.0-0.8) 09/20/16 04:12 Eosinophils # (Manual) 0.0 K/mm3 (0.0-0.4) 09/20/16 04:12 Basophils # (Manual) 0.0 K/mm3 (0.0-0.1) 09/20/16 04:12 Metamyelocytes # 0.0 K/mm3 09/20/16 04:12 Myelocytes # 0.0 K/mm3 09/20/16 04:12 Promyelocytes # 0.0 K/mm3 09/20/16 04:12 Blast Cells # 0.0 K/mm3 09/20/16 04:12 WBC Morphology Not Reportable 09/20/16 04:12 Hypersegmented Neuts Not Reportable 09/20/16 04:12 Hyposegmented Neuts Not Reportable 09/20/16 04:12 Hypogranular Neuts Not Reportable 09/20/16 04:12 Smudge Cells Not Reportable 09/20/16 04:12 Toxic Granulation Not Reportable 09/20/16 04:12 Toxic Vacuolation Not Reportable 09/20/16 04:12 Dohle Bodies Not Reportable 09/20/16 04:12 Pelger-Huet Anomaly Not Reportable 09/20/16 04:12 Lalit Rods Not Reportable 09/20/16 04:12 Platelet Estimate Appears normal 09/20/16 04:12 Clumped Platelets Not Reportable 09/20/16 04:12 Plt Clumps, EDTA Not Reportable 09/20/16 04:12 Large Platelets Not Reportable 09/20/16 04:12 Giant Platelets Not Reportable 09/20/16 04:12 Platelet Satelliting Not Reportable 09/20/16 04:12 Plt Morphology Comment Not Reportable 09/20/16 04:12 RBC Morphology Normal 09/20/16 04:12 Dimorphic RBCs Not Reportable 09/20/16 04:12 Polychromasia Not Reportable 09/20/16 04:12 Hypochromasia Not Reportable 09/20/16 04:12 Poikilocytosis Not Reportable 09/20/16 04:12 Anisocytosis Not Reportable 09/20/16 04:12 Microcytosis Not Reportable 09/20/16 04:12 Macrocytosis Not Reportable 09/20/16 04:12 Spherocytes Not Reportable 09/20/16 04:12 Pappenheimer Bodies Not Reportable 09/20/16 04:12 Sickle Cells Not Reportable 09/20/16 04:12 Target Cells Not Reportable 09/20/16 04:12 Tear Drop Cells Not Reportable 09/20/16 04:12 Ovalocytes Not Reportable 09/20/16 04:12 Helmet Cells Not Reportable 09/20/16 04:12 [place] Bodies Not Reportable 09/20/16 04:12 [place] Rings Not Reportable 09/20/16 04:12 [place]erie Cells Not Reportable 09/20/16 04:12 Bite Cells Not Reportable 09/20/16 04:12 Crenated Cell Not Reportable 09/20/16 04:12 Elliptocytes Not Reportable 09/20/16 04:12 Acanthocytes (Spur) Not Reportable 09/20/16 04:12 Rouleaux Not Reportable 09/20/16 04:12 Hemoglobin C Crystals Not Reportable 09/20/16 04:12 Schistocytes Not Reportable 09/20/16 04:12 Malaria parasites Not Reportable 09/20/16 04:12 [place] Bodies Not Reportable 09/20/16 04:12 Hem Pathologist Commnt No 09/20/16 04:12 VBG pH 7.500 (7.320-7.420) H 09/19/16 03:04 Sodium 138 mmol/L (137-145) 09/22/16 05:25 Potassium 4.6 mmol/L (3.6-5.0) 09/22/16 05:25 Chloride 99.6 mmol/L (98-107) 09/22/16 05:25 Carbon Dioxide 25 mmol/L (22-30) 09/22/16 05:25 Anion Gap 18 mmol/L 09/22/16 05:25 BUN 19 mg/dL (9-20) 09/22/16 05:25 Creatinine 0.8 mg/dL (0.8-1.5) 09/22/16 05:25 Estimated GFR > 60 ml/min 09/22/16 05:25 BUN/Creatinine Ratio 23.75 % 09/22/16 05:25 Glucose 255 mg/dL (75-100) H 09/22/16 05:25 POC Glucose 323 (70-105) H 09/22/16 11:29 Hemoglobin A1c 12.6 % (4-6) H 09/21/16 07:49 Calcium 8.5 mg/dL (8.4-10.2) 09/22/16 05:25 Troponin T < 0.010 ng/mL (0.00-0.029) 09/19/16 07:03 C-Reactive Protein 1.60 mg/dL (0.00-1.30) H 09/20/16 17:53 NT-Pro-B Natriuret Pep 280.0 pg/mL (0-900) 09/19/16 07:03 Urine Color Straw (Yellow) 09/19/16 Unknown Urine Turbidity Clear (Clear) 09/19/16 Unknown Urine pH 5.0 (5.0-7.0) 09/19/16 Unknown Ur Specific [place] 1.030 (1.003-1.030) 09/19/16 Unknown Urine Protein <15 mg/dl mg/dL (Negative) 09/19/16 Unknown Urine Glucose (UA) >=500 mg/dL (Negative) 09/19/16 Unknown Urine Ketones 20 mg/dL (Negative) 09/19/16 Unknown Urine Blood Neg (Negative) 09/19/16 Unknown Urine Nitrite Neg (Negative) 09/19/16 Unknown Urine Bilirubin Neg (Negative) 09/19/16 Unknown Urine Urobilinogen < 2.0 mg/dL (<2.0) 09/19/16 Unknown Ur Leukocyte Esterase Neg (Negative) 09/19/16 Unknown Urine WBC (Auto) 0.0 /HPF (0.0-6.0) 09/19/16 Unknown Urine RBC (Auto) 1.0 /HPF (0.0-6.0) 09/19/16 Unknown Urine Mucus Few /HPF 09/19/16 Unknown HIV 1&2 Antibody Rapid Non react (Non React) 09/21/16 09:18 HIV P24 Antigen Non react (Non React) 09/21/16 09:18
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
--- NOTE | 2016-09-22 22:37 | Progress Note ---
Assessment and Plan Patient alert, awake . Still coughing up sputum mixed with blood.Sputum for AFB and quanteferon test results pending.No acute respiratory distress.O2 saturation 97% on room air. - Patient Problems (1) Hemoptysis Current Visit: Yes Status: Acute Plan to address problem: Patient still coughing up sputum mixed with blood. Sputum for AFB still pending. Sending few more sputums for AFB. (2) Lung mass Current Visit: Yes Status: Acute Plan to address problem: If AFB is negative may consider bronchoscopy or percutaneous needle biopsy of chest lesion. (3) Pneumonia Current Visit: Yes Status: Acute Qualifiers: Pneumonia type: P Aspiration pneumonia type: A Laterality: L Lung location: L Plan to address problem: Patient is on zosyn. (4) Shortness of breath Current Visit: Yes Status: Acute Plan to address problem: Shortness of breath improved. Albuterol/atrovent aerosol treatments q 6 hours. Subjective Date of service: 09/22/16 Principal diagnosis: Cavitory Pneumonia (? Aspiration); Hemoptysis (R/O TB) Interval history: Patient alert, awake . Still coughing up sputum mixed with blood.Sputum for AFB and quanteferon test results pending.No acute respiratory distress.O2 saturation 97% on room air. Objective Vital Signs - 12hr 09/22/16 09/22/16 19:57 20:12 Pulse Rate [ 78 84 Anterior Bilateral Throughout] Respiratory 21 24 Rate [Anterior Bilateral Throughout] Constitutional: no acute distress, alert Eyes: non-icteric ENT: oropharynx moist Neck: supple, no lymphadenopathy Effort: mildly labored Ascultation: Bilateral: rales (RLL) Cardiovascular: regular rate and rhythm Gastrointestinal: normoactive bowel sounds, soft, non-tender, non-distended Integumentary: normal Extremities: no cyanosis, no edema, pulses normal, no ischemia or petechiae Neurologic: normal mental status, non-focal exam Psychiatric: mood appropriate, affect normal CBC and BMP: 09/22/16 05:25 09/22/16 05:25 Abnormal lab findings: Abnormal Labs 09/19/16 09/19/16 09/19/16 11:59 16:44 18:06 WBC Lymph % (Auto) [place] % (Auto) Lymph # [place] # Seg Neutrophils % Seg Neuts % (Manual) Lymphocytes % (Manual) Seg Neutrophils # Man Lymphocytes # (Manual) Sodium Potassium Chloride BUN Creatinine Glucose POC Glucose 321 H 479 H > 500 H Hemoglobin A1c C-Reactive Protein 09/19/16 09/19/16 09/20/16 20:58 22:38 04:12 WBC 14.2 H Lymph % (Auto) [place] % (Auto) Lymph # [place] # Seg Neutrophils % Seg Neuts % (Manual) 93.0 H Lymphocytes % (Manual) 3.0 L Seg Neutrophils # Man 13.2 H Lymphocytes # (Manual) 0.4 L Sodium Potassium Chloride BUN Creatinine Glucose POC Glucose > 500 H 404 H Hemoglobin A1c C-Reactive Protein 09/20/16 09/20/16 09/20/16 04:12 07:37 11:41 WBC Lymph % (Auto) [place] % (Auto) Lymph # [place] # Seg Neutrophils % Seg Neuts % (Manual) Lymphocytes % (Manual) Seg Neutrophils # Man Lymphocytes # (Manual) Sodium 135 L D Potassium Chloride 97.6 L BUN 31 H Creatinine 0.7 L Glucose 354 H POC Glucose 362 H 415 H Hemoglobin A1c C-Reactive Protein 09/20/16 09/20/16 09/21/16 16:25 17:53 07:31 WBC Lymph % (Auto) [place] % (Auto) Lymph # [place] # Seg Neutrophils % Seg Neuts % (Manual) Lymphocytes % (Manual) Seg Neutrophils # Man Lymphocytes # (Manual) Sodium Potassium Chloride BUN Creatinine Glucose POC Glucose 313 H 139 H Hemoglobin A1c C-Reactive Protein 1.60 H 09/21/16 09/21/16 09/21/16 07:49 07:49 11:50 WBC Lymph % (Auto) [place] % (Auto) Lymph # [place] # Seg Neutrophils % Seg Neuts % (Manual) Lymphocytes % (Manual) Seg Neutrophils # Man Lymphocytes # (Manual) Sodium Potassium 5.2 H D Chloride BUN 28 H Creatinine Glucose 139 H POC Glucose 307 H Hemoglobin A1c 12.6 H C-Reactive Protein 09/21/16 09/21/16 09/22/16 17:09 21:16 00:13 WBC Lymph % (Auto) [place] % (Auto) Lymph # [place] # Seg Neutrophils % Seg Neuts % (Manual) Lymphocytes % (Manual) Seg Neutrophils # Man Lymphocytes # (Manual) Sodium Potassium Chloride BUN Creatinine Glucose POC Glucose 203 H 255 H 49 L Hemoglobin A1c C-Reactive Protein 09/22/16 09/22/16 09/22/16 00:31 05:25 05:25 WBC Lymph % (Auto) 12.1 L [place] % (Auto) 14.6 H Lymph # 0.8 L [place] # 1.0 H Seg Neutrophils % 71.7 H Seg Neuts % (Manual) Lymphocytes % (Manual) Seg Neutrophils # Man Lymphocytes # (Manual) Sodium Potassium Chloride BUN Creatinine Glucose 255 H POC Glucose 246 H Hemoglobin A1c C-Reactive Protein 09/22/16 09/22/16 09/22/16 07:51 11:29 16:29 WBC Lymph % (Auto) [place] % (Auto) Lymph # [place] # Seg Neutrophils % Seg Neuts % (Manual) Lymphocytes % (Manual) Seg Neutrophils # Man Lymphocytes # (Manual) Sodium Potassium Chloride BUN Creatinine Glucose POC Glucose 268 H 323 H 252 H Hemoglobin A1c C-Reactive Protein 09/22/16 20:57 WBC Lymph % (Auto) [place] % (Auto) Lymph # [place] # Seg Neutrophils % Seg Neuts % (Manual) Lymphocytes % (Manual) Seg Neutrophils # Man Lymphocytes # (Manual) Sodium Potassium Chloride BUN Creatinine Glucose POC Glucose 165 H Hemoglobin A1c C-Reactive Protein CT scan - chest: report reviewed (Multiple cavitary lesions right lower lobe and small cavitary lesion right upper lobe.), image reviewed
[2016-09-23] MEDS: DUONEB *Not for PRN Use IH SCH ×4 (02:00→20:45)
[2016-09-23] MEDS: ZOSYN/NS 4.5GM/100ML 4.5 GM/100 ML VIAL IV SCH ×3 (03:27→20:53)
[2016-09-23 04:07] LABS: Basophils % (Auto) 0.5 % (0.0-1.8); Hematocrit 37.1 % (35.5-45.6); Hemoglobin 12.7 gm/dl (11.8-15.2); Mean Corpuscular HGB Conc 34 % (32-34); Mean Corpuscular Hemoglobin 31 pg (28-32); Mean Corpuscular Volume 90 fl (84-94); Platelet Count 273 K/mm3 (140-440); Red Blood Count 4.11 M/mm3 (3.65-5.03); Red Cell Distribution Width 14.4 % (13.2-15.2); White Blood Count 8.3 K/mm3 (4.5-11.0)
[2016-09-23 04:21] LABS: Anion Gap 18 mmol/L; BUN/Creatinine Ratio 15.55; Blood Urea Nitrogen 14 mg/dL (9-20); Calcium 8.7 mg/dL (8.4-10.2); Carbon Dioxide 26 mmol/L (22-30); Chloride 96.6 mmol/L (98-107); Glucose 153 mg/dL (75-100); Potassium 4.2 mmol/L (3.6-5.0); Sodium 136 mmol/L (137-145)
[2016-09-23] MEDS: NOVOLOG SUB-Q SCH ×4 (08:01→23:39)
--- NOTE | 2016-09-23 08:55 | Hem/Onc Progress Note ---
Assessment and Plan Multiple pulmonary nodules and a lung mass. This could be malignant or in infectious. Awaiting PPD and sputum results. May need a biopsy/bronchoscopy to rule out malignancy. We will follow. d/w pt who is ok with bx if needed. will d/w hospitalist Subjective Date of service: 09/23/16 Interval history: pt better. pain R side of the chest better. still coughing Objective - Constitutional Vitals: Last Vital Signs Temp 97.8 F 09/22/16 22:52 Pulse 77 09/22/16 22:52 Resp 18 09/22/16 22:52 BP 123/66 09/22/16 22:52 Pulse Ox 97 09/22/16 22:52 General appearance: no acute distress Performance status: 2- selfcare, ambulatory - Neck Neck: supple - Respiratory Respiratory effort: Positive: normal Respiratory: bilateral: CTA - Cardiovascular Rhythm: regular Extremities: No edema - Gastrointestinal General gastrointestinal: Present: soft - Labs Lab Results: Laboratory Results - last 24 hr 09/22/16 09/22/16 09/22/16 11:29 16:29 20:57 WBC RBC Hgb Hct MCV MCH MCHC RDW Plt Count Lymph % (Auto) [place] % (Auto) Eos % (Auto) Baso % (Auto) Lymph # [place] # Eos # Baso # Seg Neutrophils % Seg Neutrophils # Sodium Potassium Chloride Carbon Dioxide Anion Gap BUN Creatinine Estimated GFR BUN/Creatinine Ratio Glucose POC Glucose 323 H 252 H 165 H Calcium 09/23/16 09/23/16 09/23/16 03:10 03:10 07:51 WBC 8.3 RBC 4.11 Hgb 12.7 Hct 37.1 MCV 90 MCH 31 MCHC 34 RDW 14.4 Plt Count 273 Lymph % (Auto) 14.2 [place] % (Auto) 11.3 H Eos % (Auto) 2.0 Baso % (Auto) 0.5 Lymph # 1.2 [place] # 0.9 H Eos # 0.2 Baso # 0.0 Seg Neutrophils % 72.0 H Seg Neutrophils # 6.0 Sodium 136 L Potassium 4.2 Chloride 96.6 L Carbon Dioxide 26 Anion Gap 18 BUN 14 Creatinine 0.9 Estimated GFR > 60 BUN/Creatinine Ratio 15.55 Glucose 153 H POC Glucose 121 H Calcium 8.7
--- NOTE | 2016-09-23 09:00 | Progress Note ---
Assessment and Plan - Patient Problems (1) Pneumonia Current Visit: Yes Status: Acute Qualifiers: Pneumonia type: due to unspecified organism Aspiration pneumonia type: A Laterality: bilateral Plan to address problem: 1. Case was discussed with Dr. Cho, governor assembler hydraulic. Will obtain a percutaneous biopsy of lung lesion(s) with AFB, bacterial and fungal studies. 2. Continue current, broad antimicrobial management for now. (2) Hemoptysis Current Visit: Yes Status: Acute Plan to address problem: 1. Per above. AFB sputum studies have also been submitted. Subjective Date of service: 09/23/16 Principal diagnosis: Cavitory Pneumonia (? Aspiration); Hemoptysis (R/O TB) Interval history: Patient notes pain over areas of his torso, jeramy. at right upper back. Thinks it is from excessive coughing. Objective - Constitutional Vitals: Vital Signs Temp Pulse Resp BP Pulse Ox 97.8 F 77 18 123/66 97 09/22/16 22:52 09/22/16 22:52 09/22/16 22:52 09/22/16 22:52 09/22/16 22:52 Temperature -Last 24 Hours Temperature 97.8 F Temperature 97.8 F Temperature 97.2 F General appearance: Present: no acute distress, other (daughter at bedside) - Respiratory Respiratory: bilateral: rhonchi (mild), negative: wheezing - Cardiovascular Rhythm: regular Heart Sounds: Present: S1 & S2 Extremities: No edema - Gastrointestinal General gastrointestinal: Present: soft, non-distended - Integumentary Integumentary: clear - Psychiatric Psychiatric: appropriate mood/affect - Labs CBC & Chem 7: 09/23/16 03:10 09/23/16 03:10 Labs: Abnormal lab results 09/22/16 09/22/16 09/22/16 Range/Units 11:29 16:29 20:57 [place] % (Auto) (0.0-7.3) % [place] # (0.0-0.8) K/mm3 Seg Neutrophils % (40.0-70.0) % Sodium (137-145) mmol/L Chloride (98-107) mmol/L Glucose (75-100) mg/dL POC Glucose 323 H 252 H 165 H (70-105) 09/23/16 09/23/16 09/23/16 Range/Units 03:10 03:10 07:51 [place] % (Auto) 11.3 H (0.0-7.3) % [place] # 0.9 H (0.0-0.8) K/mm3 Seg Neutrophils % 72.0 H (40.0-70.0) % Sodium 136 L (137-145) mmol/L Chloride 96.6 L (98-107) mmol/L Glucose 153 H (75-100) mg/dL POC Glucose 121 H (70-105) Microbiology 09/22/16 Unknown Sputum - Expectorated Sputum Sputum Culture - Preliminary 09/20/16 20:01 Peripheral/Venous Blood Culture - Preliminary NO GROWTH AFTER 48 HOURS 09/20/16 17:53 Peripheral/Venous Blood Culture - Preliminary NO GROWTH AFTER 48 HOURS 09/21/16 08:57 Serum Cryptococcal Antigen - Final 09/21/16 Unknown Sputum - Expectorated Sputum Sputum Culture - Final 09/21/16 Unknown Sputum - Expectorated Sputum Sputum Culture - Final
[2016-09-23] MEDS: ZESTRIL PO SCH (10:33)
--- NOTE | 2016-09-23 14:12 | Progress Note ---
Assessment and Plan Assessment and plan: Pneumonia. Patient admitted for chronic cough, hemoptysis CT showed multiple cavitary mass lesions Patient is being worked up to rule out TB, pneumonia and lung cancer. Sputum for AFB X 3 Patient is on Zosyn iv Pulmonary and hematology/ oncology following For lung biopsy tomorrow. Hemoptysis. To rule out TB, lung cancer. Diabetes mellitus type 2. Continue fingerstick glucose before every meal and at bedtime - Continue Novolin 70/30 - Will follow and adjust as needed to control glucose. Hyponatremia Malnutrition DVT prophylaxis - On Lovenox Disposition - Continue inpatient care History Interval history: Still coughing bloody sputum Hospitalist Physical - Physical exam Narrative exam: Gen Appearance: No acute distress, coughing HEENT: normocephalic, atraumatic Neck: supple, no JVD Lungs: Bilateral rales. Heart: S1 and S2 regular, no murmurs or gallop Abdomen: Soft, non-tender, non-distended, normal bowel sounds Extremity: No edema, clubbing or cyanosis Neuro : Awake, alert, oriented x 3, moves all extremities. Psych: normal mood - Constitutional Vitals: Temp Pulse Resp BP Pulse Ox 100.1 F H 73 18 138/65 97 09/23/16 09:51 09/23/16 10:33 09/23/16 10:00 09/23/16 10:33 09/22/16 22:52 General appearance: Present: no acute distress, other (daughter at bedside) Results - Labs CBC & Chem 7: 09/23/16 03:10 09/23/16 03:10 Labs: Laboratory Last Values WBC 8.3 K/mm3 (4.5-11.0) 09/23/16 03:10 RBC 4.11 M/mm3 (3.65-5.03) 09/23/16 03:10 Hgb 12.7 gm/dl (11.8-15.2) 09/23/16 03:10 Hct 37.1 % (35.5-45.6) 09/23/16 03:10 MCV 90 fl (84-94) 09/23/16 03:10 MCH 31 pg (28-32) 09/23/16 03:10 MCHC 34 % (32-34) 09/23/16 03:10 RDW 14.4 % (13.2-15.2) 09/23/16 03:10 Plt Count 273 K/mm3 (140-440) 09/23/16 03:10 Lymph % (Auto) 14.2 % (13.4-35.0) 09/23/16 03:10 [place] % (Auto) 11.3 % (0.0-7.3) H 09/23/16 03:10 Eos % (Auto) 2.0 % (0.0-4.3) 09/23/16 03:10 Baso % (Auto) 0.5 % (0.0-1.8) 09/23/16 03:10 Lymph # 1.2 K/mm3 (1.2-5.4) 09/23/16 03:10 [place] # 0.9 K/mm3 (0.0-0.8) H 09/23/16 03:10 Eos # 0.2 K/mm3 (0.0-0.4) 09/23/16 03:10 Baso # 0.0 K/mm3 (0.0-0.1) 09/23/16 03:10 Add Manual Diff Complete 09/20/16 04:12 Total Counted 100 09/20/16 04:12 Seg Neutrophils % 72.0 % (40.0-70.0) H 09/23/16 03:10 Seg Neuts % (Manual) 93.0 % (40.0-70.0) H 09/20/16 04:12 Band Neutrophils % 0 % 09/20/16 04:12 Lymphocytes % (Manual) 3.0 % (13.4-35.0) L 09/20/16 04:12 Reactive Lymphs % (Man) 0 % 09/20/16 04:12 Monocytes % (Manual) 4.0 % (0.0-7.3) 09/20/16 04:12 Eosinophils % (Manual) 0 % (0.0-4.3) 09/20/16 04:12 Basophils % (Manual) 0 % (0.0-1.8) 09/20/16 04:12 Metamyelocytes % 0 % 09/20/16 04:12 Myelocytes % 0 % 09/20/16 04:12 Promyelocytes % 0 % 09/20/16 04:12 Blast Cells % 0 % 09/20/16 04:12 Nucleated RBC % Not Reportable 09/20/16 04:12 Seg Neutrophils # 6.0 K/mm3 (1.8-7.7) 09/23/16 03:10 Seg Neutrophils # Man 13.2 K/mm3 (1.8-7.7) H 09/20/16 04:12 Band Neutrophils # 0.0 K/mm3 09/20/16 04:12 Lymphocytes # (Manual) 0.4 K/mm3 (1.2-5.4) L 09/20/16 04:12 Abs React Lymphs (Man) 0.0 K/mm3 09/20/16 04:12 Monocytes # (Manual) 0.6 K/mm3 (0.0-0.8) 09/20/16 04:12 Eosinophils # (Manual) 0.0 K/mm3 (0.0-0.4) 09/20/16 04:12 Basophils # (Manual) 0.0 K/mm3 (0.0-0.1) 09/20/16 04:12 Metamyelocytes # 0.0 K/mm3 09/20/16 04:12 Myelocytes # 0.0 K/mm3 09/20/16 04:12 Promyelocytes # 0.0 K/mm3 09/20/16 04:12 Blast Cells # 0.0 K/mm3 09/20/16 04:12 WBC Morphology Not Reportable 09/20/16 04:12 Hypersegmented Neuts Not Reportable 09/20/16 04:12 Hyposegmented Neuts Not Reportable 09/20/16 04:12 Hypogranular Neuts Not Reportable 09/20/16 04:12 Smudge Cells Not Reportable 09/20/16 04:12 Toxic Granulation Not Reportable 09/20/16 04:12 Toxic Vacuolation Not Reportable 09/20/16 04:12 Dohle Bodies Not Reportable 09/20/16 04:12 Pelger-Huet Anomaly Not Reportable 09/20/16 04:12 Lalit Rods Not Reportable 09/20/16 04:12 Platelet Estimate Appears normal 09/20/16 04:12 Clumped Platelets Not Reportable 09/20/16 04:12 Plt Clumps, EDTA Not Reportable 09/20/16 04:12 Large Platelets Not Reportable 09/20/16 04:12 Giant Platelets Not Reportable 09/20/16 04:12 Platelet Satelliting Not Reportable 09/20/16 04:12 Plt Morphology Comment Not Reportable 09/20/16 04:12 RBC Morphology Normal 09/20/16 04:12 Dimorphic RBCs Not Reportable 09/20/16 04:12 Polychromasia Not Reportable 09/20/16 04:12 Hypochromasia Not Reportable 09/20/16 04:12 Poikilocytosis Not Reportable 09/20/16 04:12 Anisocytosis Not Reportable 09/20/16 04:12 Microcytosis Not Reportable 09/20/16 04:12 Macrocytosis Not Reportable 09/20/16 04:12 Spherocytes Not Reportable 09/20/16 04:12 Pappenheimer Bodies Not Reportable 09/20/16 04:12 Sickle Cells Not Reportable 09/20/16 04:12 Target Cells Not Reportable 09/20/16 04:12 Tear Drop Cells Not Reportable 09/20/16 04:12 Ovalocytes Not Reportable 09/20/16 04:12 Helmet Cells Not Reportable 09/20/16 04:12 [place] Bodies Not Reportable 09/20/16 04:12 [place] Rings Not Reportable 09/20/16 04:12 [place] Cells Not Reportable 09/20/16 04:12 Bite Cells Not Reportable 09/20/16 04:12 Crenated Cell Not Reportable 09/20/16 04:12 Elliptocytes Not Reportable 09/20/16 04:12 Acanthocytes (Spur) Not Reportable 09/20/16 04:12 Rouleaux Not Reportable 09/20/16 04:12 Hemoglobin C Crystals Not Reportable 09/20/16 04:12 Schistocytes Not Reportable 09/20/16 04:12 Malaria parasites Not Reportable 09/20/16 04:12 [place] Bodies Not Reportable 09/20/16 04:12 Hem Pathologist Commnt No 09/20/16 04:12 VBG pH 7.500 (7.320-7.420) H 09/19/16 03:04 Sodium 136 mmol/L (137-145) L 09/23/16 03:10 Potassium 4.2 mmol/L (3.6-5.0) 09/23/16 03:10 Chloride 96.6 mmol/L (98-107) L 09/23/16 03:10 Carbon Dioxide 26 mmol/L (22-30) 09/23/16 03:10 Anion Gap 18 mmol/L 09/23/16 03:10 BUN 14 mg/dL (9-20) 09/23/16 03:10 Creatinine 0.9 mg/dL (0.8-1.5) 09/23/16 03:10 Estimated GFR > 60 ml/min 09/23/16 03:10 BUN/Creatinine Ratio 15.55 % 09/23/16 03:10 Glucose 153 mg/dL (75-100) H 09/23/16 03:10 POC Glucose 251 (70-105) H 09/23/16 11:21 Hemoglobin A1c 12.6 % (4-6) H 09/21/16 07:49 Calcium 8.7 mg/dL (8.4-10.2) 09/23/16 03:10 Troponin T < 0.010 ng/mL (0.00-0.029) 09/19/16 07:03 C-Reactive Protein 1.60 mg/dL (0.00-1.30) H 09/20/16 17:53 NT-Pro-B Natriuret Pep 280.0 pg/mL (0-900) 09/19/16 07:03 Urine Color Straw (Yellow) 09/19/16 Unknown Urine Turbidity Clear (Clear) 09/19/16 Unknown Urine pH 5.0 (5.0-7.0) 09/19/16 Unknown Ur Specific [place] 1.030 (1.003-1.030) 09/19/16 Unknown Urine Protein <15 mg/dl mg/dL (Negative) 09/19/16 Unknown Urine Glucose (UA) >=500 mg/dL (Negative) 09/19/16 Unknown Urine Ketones 20 mg/dL (Negative) 09/19/16 Unknown Urine Blood Neg (Negative) 09/19/16 Unknown Urine Nitrite Neg (Negative) 09/19/16 Unknown Urine Bilirubin Neg (Negative) 09/19/16 Unknown Urine Urobilinogen < 2.0 mg/dL (<2.0) 09/19/16 Unknown Ur Leukocyte Esterase Neg (Negative) 09/19/16 Unknown Urine WBC (Auto) 0.0 /HPF (0.0-6.0) 09/19/16 Unknown Urine RBC (Auto) 1.0 /HPF (0.0-6.0) 09/19/16 Unknown Urine Mucus Few /HPF 09/19/16 Unknown HIV 1&2 Antibody Rapid Non react (Non React) 09/21/16 09:18 HIV P24 Antigen Non react (Non React) 09/21/16 09:18
[2016-09-23 17:55] LABS: INR 1.03 (0.87-1.13)
[2016-09-23 19:33] LABS: Myeloperoxidase Antibody <1.0 AI (<1.0)
--- NOTE | 2016-09-23 19:40 | Progress Note ---
Assessment and Plan Patient alert, awake . Still coughing up sputum mixed with blood.Sputum for AFB and quanteferon test results pending.No acute respiratory distress.O2 saturation 97% on room air.Patient scheduled for CT guided lung biopsy by oncology. - Patient Problems (1) Hemoptysis Current Visit: Yes Status: Acute Plan to address problem: Patient still coughing up sputum mixed with blood. Sputum for AFB still pending. Sending few more sputums for AFB. (2) Lung mass Current Visit: Yes Status: Acute Plan to address problem: Patient scheduled for percutaneous needle biopsy of chest lesion by oncology. (3) Pneumonia Current Visit: Yes Status: Acute Qualifiers: Pneumonia type: due to unspecified organism Aspiration pneumonia type: A Laterality: bilateral Lung location: L Plan to address problem: Patient is on zosyn. (4) Shortness of breath Current Visit: Yes Status: Acute Plan to address problem: Shortness of breath improved. Albuterol/atrovent aerosol treatments q 6 hours. Subjective Date of service: 09/23/16 Principal diagnosis: Cavitory Pneumonia (? Aspiration); Hemoptysis (R/O TB) Interval history: Patient alert, awake . Still coughing up sputum mixed with blood.Sputum for AFB and quanteferon test results pending.No acute respiratory distress.O2 saturation 97% on room air.Patient scheduled for CT guided biopsy of lung lesion By oncology. Objective Vital Signs - 12hr 09/23/16 09/23/16 09/23/16 09:46 09:51 09:57 Temperature 100.1 F H Pulse Rate Pulse Rate [ 81 78 Anterior Bilateral Throughout] Pulse Rate [ 73 From Monitor] Respiratory 20 Rate Respiratory 18 18 Rate [Anterior Bilateral Throughout] Blood Pressure Blood Pressure 138/65 [Right Arm] 09/23/16 09/23/16 09/23/16 10:00 10:33 14:27 Temperature Pulse Rate 73 Pulse Rate [ 75 Anterior Bilateral Throughout] Pulse Rate [ From Monitor] Respiratory 18 Rate Respiratory 18 Rate [Anterior Bilateral Throughout] Blood Pressure 138/65 Blood Pressure [Right Arm] 09/23/16 14:42 Temperature Pulse Rate Pulse Rate [ 71 Anterior Bilateral Throughout] Pulse Rate [ From Monitor] Respiratory Rate Respiratory 18 Rate [Anterior Bilateral Throughout] Blood Pressure Blood Pressure [Right Arm] Constitutional: no acute distress, alert Eyes: non-icteric ENT: oropharynx moist Neck: supple, no lymphadenopathy Effort: mildly labored Ascultation: Bilateral: rales (RLL) Cardiovascular: regular rate and rhythm Gastrointestinal: normoactive bowel sounds, soft, non-tender, non-distended Integumentary: normal Extremities: no cyanosis, no edema, pulses normal, no ischemia or petechiae Neurologic: normal mental status, non-focal exam Psychiatric: mood appropriate, affect normal CBC and BMP: 09/23/16 03:10 09/23/16 03:10 ABG, PT/INR, D-dimer: PT/INR, D-dimer PT 13.4 Sec. (12.2-14.9) 09/23/16 16:56 INR 1.03 (0.87-1.13) 09/23/16 16:56 Abnormal lab findings: Abnormal Labs 09/19/16 09/19/16 09/19/16 11:59 16:44 18:06 WBC Lymph % (Auto) [place] % (Auto) Lymph # [place] # Seg Neutrophils % Seg Neuts % (Manual) Lymphocytes % (Manual) Seg Neutrophils # Man Lymphocytes # (Manual) Sodium Potassium Chloride BUN Creatinine Glucose POC Glucose 321 H 479 H > 500 H Hemoglobin A1c C-Reactive Protein 09/19/16 09/19/16 09/20/16 20:58 22:38 04:12 WBC 14.2 H Lymph % (Auto) [place] % (Auto) Lymph # [place] # Seg Neutrophils % Seg Neuts % (Manual) 93.0 H Lymphocytes % (Manual) 3.0 L Seg Neutrophils # Man 13.2 H Lymphocytes # (Manual) 0.4 L Sodium Potassium Chloride BUN Creatinine Glucose POC Glucose > 500 H 404 H Hemoglobin A1c C-Reactive Protein 09/20/16 09/20/16 09/20/16 04:12 07:37 11:41 WBC Lymph % (Auto) [place] % (Auto) Lymph # [place] # Seg Neutrophils % Seg Neuts % (Manual) Lymphocytes % (Manual) Seg Neutrophils # Man Lymphocytes # (Manual) Sodium 135 L D Potassium Chloride 97.6 L BUN 31 H Creatinine 0.7 L Glucose 354 H POC Glucose 362 H 415 H Hemoglobin A1c C-Reactive Protein 09/20/16 09/20/16 09/21/16 16:25 17:53 07:31 WBC Lymph % (Auto) [place] % (Auto) Lymph # [place] # Seg Neutrophils % Seg Neuts % (Manual) Lymphocytes % (Manual) Seg Neutrophils # Man Lymphocytes # (Manual) Sodium Potassium Chloride BUN Creatinine Glucose POC Glucose 313 H 139 H Hemoglobin A1c C-Reactive Protein 1.60 H 09/21/16 09/21/16 09/21/16 07:49 07:49 11:50 WBC Lymph % (Auto) [place] % (Auto) Lymph # [place] # Seg Neutrophils % Seg Neuts % (Manual) Lymphocytes % (Manual) Seg Neutrophils # Man Lymphocytes # (Manual) Sodium Potassium 5.2 H D Chloride BUN 28 H Creatinine Glucose 139 H POC Glucose 307 H Hemoglobin A1c 12.6 H C-Reactive Protein 09/21/16 09/21/16 09/22/16 17:09 21:16 00:13 WBC Lymph % (Auto) [place] % (Auto) Lymph # [place] # Seg Neutrophils % Seg Neuts % (Manual) Lymphocytes % (Manual) Seg Neutrophils # Man Lymphocytes # (Manual) Sodium Potassium Chloride BUN Creatinine Glucose POC Glucose 203 H 255 H 49 L Hemoglobin A1c C-Reactive Protein 09/22/16 09/22/16 09/22/16 00:31 05:25 05:25 WBC Lymph % (Auto) 12.1 L [place] % (Auto) 14.6 H Lymph # 0.8 L [place] # 1.0 H Seg Neutrophils % 71.7 H Seg Neuts % (Manual) Lymphocytes % (Manual) Seg Neutrophils # Man Lymphocytes # (Manual) Sodium Potassium Chloride BUN Creatinine Glucose 255 H POC Glucose 246 H Hemoglobin A1c C-Reactive Protein 09/22/16 09/22/16 09/22/16 07:51 11:29 16:29 WBC Lymph % (Auto) [place] % (Auto) Lymph # [place] # Seg Neutrophils % Seg Neuts % (Manual) Lymphocytes % (Manual) Seg Neutrophils # Man Lymphocytes # (Manual) Sodium Potassium Chloride BUN Creatinine Glucose POC Glucose 268 H 323 H 252 H Hemoglobin A1c C-Reactive Protein 09/22/16 09/23/16 09/23/16 20:57 03:10 03:10 WBC Lymph % (Auto) [place] % (Auto) 11.3 H Lymph # [place] # 0.9 H Seg Neutrophils % 72.0 H Seg Neuts % (Manual) Lymphocytes % (Manual) Seg Neutrophils # Man Lymphocytes # (Manual) Sodium 136 L Potassium [place]lor[place] 96.6 L BUN Creatinine Glucose 153 H POC Glucose 165 H Hemoglobin A1c C-Reactive Protein 09/23/16 09/23/16 09/23/16 07:51 11:21 16:32 WBC Lymph % (Auto) [place] % (Auto) Lymph # [place] # Seg Neutrophils % Seg Neuts % (Manual) Lymphocytes % (Manual) Seg Neutrophils # Man Lymphocytes # (Manual) Sodium Potassium Chloride BUN Creatinine Glucose POC Glucose 121 H 251 H 302 H Hemoglobin A1c C-Reactive Protein
[2016-09-24] MEDS: ZOSYN/NS 4.5GM/100ML 4.5 GM/100 ML VIAL IV SCH ×3 (02:56→18:00)
[2016-09-24] MEDS: DUONEB *Not for PRN Use IH SCH ×4 (02:56→21:47)
--- NOTE | 2016-09-24 08:27 | Progress Note ---
Assessment and Plan Assessment and plan: Pneumonia. Patient admitted for chronic cough, hemoptysis CT showed multiple cavitary mass lesions Patient is being worked up to rule out TB, pneumonia and lung cancer. Sputum for AFB X 3, received. Results pending Patient is on Zosyn iv Pulmonary and hematology/ oncology following For lung biopsy today Hememoptysis. To rule out TB, lung cancer. Leukocytosis resolved Diabetes mellitus type 2. Continue fingerstick glucose before every meal and at bedtime - Continue Novolin 70/30 - Will follow and adjust as needed to control glucose. Hyponatremia Malnutrition DVT prophylaxis with Lovenox Disposition: Continue inpatient care History Interval history: Still coughing bloody sputum Hospitalist Physical - Physical exam Narrative exam: Gen Appearance: No acute distress, coughing HEENT: normocephalic, atraumatic Neck: supple, no JVD Lungs: Bilateral rales. Heart: S1 and S2 regular, no murmurs or gallop Abdomen: Soft, non-tender, non-distended, normal bowel sounds Extremity: No edema, clubbing or cyanosis Neuro : Awake, alert, oriented x 3, moves all extremities. Psych: normal mood - Constitutional Vitals: Temp Pulse Resp BP Pulse Ox 98.7 F 93 H 20 138/68 100 09/23/16 22:00 09/23/16 22:00 09/23/16 22:00 09/23/16 22:00 09/23/16 22:00 General appearance: Present: no acute distress, other (daughter at bedside) Results - Labs CBC & Chem 7: 09/23/16 03:10 09/23/16 03:10 Labs: Laboratory Last Values WBC 8.3 K/mm3 (4.5-11.0) 09/23/16 03:10 RBC 4.11 M/mm3 (3.65-5.03) 09/23/16 03:10 Hgb 12.7 gm/dl (11.8-15.2) 09/23/16 03:10 Hct 37.1 % (35.5-45.6) 09/23/16 03:10 MCV 90 fl (84-94) 09/23/16 03:10 MCH 31 pg (28-32) 09/23/16 03:10 MCHC 34 % (32-34) 09/23/16 03:10 RDW 14.4 % (13.2-15.2) 09/23/16 03:10 Plt Count 273 K/mm3 (140-440) 09/23/16 03:10 Lymph % (Auto) 14.2 % (13.4-35.0) 09/23/16 03:10 [place] % (Auto) 11.3 % (0.0-7.3) H 09/23/16 03:10 Eos % (Auto) 2.0 % (0.0-4.3) 09/23/16 03:10 Baso % (Auto) 0.5 % (0.0-1.8) 09/23/16 03:10 Lymph # 1.2 K/mm3 (1.2-5.4) 09/23/16 03:10 [place] # 0.9 K/mm3 (0.0-0.8) H 09/23/16 03:10 Eos # 0.2 K/mm3 (0.0-0.4) 09/23/16 03:10 Baso # 0.0 K/mm3 (0.0-0.1) 09/23/16 03:10 Add Manual Diff Complete 09/20/16 04:12 Total Counted 100 09/20/16 04:12 Seg Neutrophils % 72.0 % (40.0-70.0) H 09/23/16 03:10 Seg Neuts % (Manual) 93.0 % (40.0-70.0) H 09/20/16 04:12 Band Neutrophils % 0 % 09/20/16 04:12 Lymphocytes % (Manual) 3.0 % (13.4-35.0) L 09/20/16 04:12 Reactive Lymphs % (Man) 0 % 09/20/16 04:12 Monocytes % (Manual) 4.0 % (0.0-7.3) 09/20/16 04:12 Eosinophils % (Manual) 0 % (0.0-4.3) 09/20/16 04:12 Basophils % (Manual) 0 % (0.0-1.8) 09/20/16 04:12 Metamyelocytes % 0 % 09/20/16 04:12 Myelocytes % 0 % 09/20/16 04:12 Promyelocytes % 0 % 09/20/16 04:12 Blast Cells % 0 % 09/20/16 04:12 Nucleated RBC % Not Reportable 09/20/16 04:12 Seg Neutrophils # 6.0 K/mm3 (1.8-7.7) 09/23/16 03:10 Seg Neutrophils # Man 13.2 K/mm3 (1.8-7.7) H 09/20/16 04:12 Band Neutrophils # 0.0 K/mm3 09/20/16 04:12 Lymphocytes # (Manual) 0.4 K/mm3 (1.2-5.4) L 09/20/16 04:12 Abs React Lymphs (Man) 0.0 K/mm3 09/20/16 04:12 Monocytes # (Manual) 0.6 K/mm3 (0.0-0.8) 09/20/16 04:12 Eosinophils # (Manual) 0.0 K/mm3 (0.0-0.4) 09/20/16 04:12 Basophils # (Manual) 0.0 K/mm3 (0.0-0.1) 09/20/16 04:12 Metamyelocytes # 0.0 K/mm3 09/20/16 04:12 Myelocytes # 0.0 K/mm3 09/20/16 04:12 Promyelocytes # 0.0 K/mm3 09/20/16 04:12 Blast Cells # 0.0 K/mm3 09/20/16 04:12 WBC Morphology Not Reportable 09/20/16 04:12 Hypersegmented Neuts Not Reportable 09/20/16 04:12 Hyposegmented Neuts Not Reportable 09/20/16 04:12 Hypogranular Neuts Not Reportable 09/20/16 04:12 Smudge Cells Not Reportable 09/20/16 04:12 Toxic Granulation Not Reportable 09/20/16 04:12 Toxic Vacuolation Not Reportable 09/20/16 04:12 Dohle Bodies Not Reportable 09/20/16 04:12 Pelger-Huet Anomaly Not Reportable 09/20/16 04:12 Lalit Rods Not Reportable 09/20/16 04:12 Platelet Estimate Appears normal 09/20/16 04:12 Clumped Platelets Not Reportable 09/20/16 04:12 Plt Clumps, EDTA Not Reportable 09/20/16 04:12 Large Platelets Not Reportable 09/20/16 04:12 Giant Platelets Not Reportable 09/20/16 04:12 Platelet Satelliting Not Reportable 09/20/16 04:12 Plt Morphology Comment Not Reportable 09/20/16 04:12 RBC Morphology Normal 09/20/16 04:12 Dimorphic RBCs Not Reportable 09/20/16 04:12 Polychromasia Not Reportable 09/20/16 04:12 Hypochromasia Not Reportable 09/20/16 04:12 Poikilocytosis Not Reportable 09/20/16 04:12 Anisocytosis Not Reportable 09/20/16 04:12 Microcytosis Not Reportable 09/20/16 04:12 Macrocytosis Not Reportable 09/20/16 04:12 Spherocytes Not Reportable 09/20/16 04:12 Pappenheimer Bodies Not Reportable 09/20/16 04:12 Sickle Cells Not Reportable 09/20/16 04:12 Target Cells Not Reportable 09/20/16 04:12 Tear Drop Cells Not Reportable 09/20/16 04:12 Ovalocytes Not Reportable 09/20/16 04:12 Helmet Cells Not Reportable 09/20/16 04:12 [place] Bodies Not Reportable 09/20/16 04:12 [place] Rings Not Reportable 09/20/16 04:12 [place] Cells Not Reportable 09/20/16 04:12 Bite Cells Not Reportable 09/20/16 04:12 Crenated Cell Not Reportable 09/20/16 04:12 Elliptocytes Not Reportable 09/20/16 04:12 Acanthocytes (Spur) Not Reportable 09/20/16 04:12 Rouleaux Not Reportable 09/20/16 04:12 Hemoglobin C Crystals Not Reportable 09/20/16 04:12 Schistocytes Not Reportable 09/20/16 04:12 Malaria parasites Not Reportable 09/20/16 04:12 [place] Bodies Not Reportable 09/20/16 04:12 Hem Pathologist Commnt No 09/20/16 04:12 PT 13.4 Sec. (12.2-14.9) 09/23/16 16:56 INR 1.03 (0.87-1.13) 09/23/16 16:56 VBG pH 7.500 (7.320-7.420) H 09/19/16 03:04 Sodium 136 mmol/L (137-145) L 09/23/16 03:10 Potassium 4.2 mmol/L (3.6-5.0) 09/23/16 03:10 Chloride 96.6 mmol/L (98-107) L 09/23/16 03:10 Carbon Dioxide 26 mmol/L (22-30) 09/23/16 03:10 Anion Gap 18 mmol/L 09/23/16 03:10 BUN 14 mg/dL (9-20) 09/23/16 03:10 Creatinine 0.9 mg/dL (0.8-1.5) 09/23/16 03:10 Estimated GFR > 60 ml/min 09/23/16 03:10 BUN/Creatinine Ratio 15.55 % 09/23/16 03:10 Glucose 153 mg/dL (75-100) H 09/23/16 03:10 POC Glucose 222 (70-105) H 09/24/16 07:43 Hemoglobin A1c 12.6 % (4-6) H 09/21/16 07:49 Calcium 8.7 mg/dL (8.4-10.2) 09/23/16 03:10 Troponin T < 0.010 ng/mL (0.00-0.029) 09/19/16 07:03 C-Reactive Protein 1.60 mg/dL (0.00-1.30) H 09/20/16 17:53 NT-Pro-B Natriuret Pep 280.0 pg/mL (0-900) 09/19/16 07:03 Urine Color Straw (Yellow) 09/19/16 Unknown Urine Turbidity Clear (Clear) 09/19/16 Unknown Urine pH 5.0 (5.0-7.0) 09/19/16 Unknown Ur Specific [place] 1.030 (1.003-1.030) 09/19/16 Unknown Urine Protein <15 mg/dl mg/dL (Negative) 09/19/16 Unknown Urine Glucose (UA) >=500 mg/dL (Negative) 09/19/16 Unknown Urine Ketones 20 mg/dL (Negative) 09/19/16 Unknown Urine Blood Neg (Negative) 09/19/16 Unknown Urine Nitrite Neg (Negative) 09/19/16 Unknown Urine Bilirubin Neg (Negative) 09/19/16 Unknown Urine Urobilinogen < 2.0 mg/dL (<2.0) 09/19/16 Unknown Ur Leukocyte Esterase Neg (Negative) 09/19/16 Unknown Urine WBC (Auto) 0.0 /HPF (0.0-6.0) 09/19/16 Unknown Urine RBC (Auto) 1.0 /HPF (0.0-6.0) 09/19/16 Unknown Urine Mucus Few /HPF 09/19/16 Unknown Proteinase 3 (PR3) Ab <1.0 AI (<1.0) 09/21/16 09:18 Myeloperoxidase Ab <1.0 AI (<1.0) 09/21/16 09:18 HIV 1&2 Antibody Rapid Non react (Non React) 09/21/16 09:18 HIV P24 Antigen Non react (Non React) 09/21/16 09:18
[2016-09-24] MEDS ORDERED: SUBLIMAZE ONE (08:34)
[2016-09-24] MEDS ORDERED: VERSED IV ONE (08:34)
--- NOTE | 2016-09-24 08:57 | Event Note ---
Date: 09/24/16 for lung bx
[2016-09-24] MEDS ORDERED: SUBLIMAZE IV NR (09:00)
[2016-09-24] MEDS ORDERED: VERSED IV NR (09:00)
--- NOTE | 2016-09-24 10:17 | Cat Scan Report ---
CT BIOPSY LUNG RIGHT HISTORY: Pulmonary nodules. DESCRIPTION OF PROCEDURE: Informed consent was obtained. An medical interpreter was utilized. Sterile technique was utilized. Conscious sedation was accomplished with Versed and fentanyl. The patient was sedated for 15 minutes. Intraobserver time of 20 minutes. Independent cardiorespiratory monitoring by RN. Using CT guidance, a 19-gauge introducer needle was advanced to the leading edge of a 1.7 cm nodule in the right lower lobe. Three 20-gauge core biopsies were obtained for pathology. The samples were deemed adequate. Followup scan at the end of the procedure demonstrates a small right pneumothorax estimated at less than 5%. The patient was asymptomatic. A followup chest x-ray will be ordered. IMPRESSION: Successful CT-guided biopsy of a 1.7 cm nodule in the right lower lobe.
--- NOTE | 2016-09-24 12:27 | XRay Report ---
AP CHEST: HISTORY: Short of breath, lung mass, recent CT-guided lung biopsy Recent CT-guided biopsy of a right lower lobe lesion was performed. There was a tiny pneumothorax at the end of the procedure. Followup AP chest demonstrates no significant pneumothorax. The lungs are generally clear other than infiltrative changes at the right lung base. Heart size is within normal limits. IMPRESSION: No significant pneumothorax is visualized on portable AP chest.
[2016-09-24] MEDS: NOVOLOG SUB-Q SCH ×4 (17:00→22:20)
[2016-09-24] MEDS: ZESTRIL PO SCH (18:24)
--- NOTE | 2016-09-24 22:35 | Progress Note ---
Assessment and Plan Patient alert, awake . Still coughing up sputum mixed with blood. 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 Anti tuberculous medications as per ID..Patient also Has CT guided lung biopsy of right lower lobe nodule today.. Results are pending. Post BIopsy chest xray no pneumothorax. - Patient Problems (1) Hemoptysis Current Visit: Yes Status: Acute Plan to address problem: Patient still coughing up sputum mixed with blood. 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 Anti tuberculous medications as per ID..Patient also Has CT guided lung biopsy of right lower lobe nodule today.. Results are pending. Post BIopsy chest xray no pneumothorax. (2) Lung mass Current Visit: Yes Status: Acute Plan to address problem: Patient Has CT guided lung biopsy of right lower lobe nodule today.. Results are pending. Post BIopsy chest xray no pneumothorax. (3) Pneumonia Current Visit: Yes Status: Acute Qualifiers: Pneumonia type: due to unspecified organism Aspiration pneumonia type: A Laterality: bilateral Lung location: L Plan to address problem: Patient is on zosyn. (4) Shortness of breath Current Visit: Yes Status: Acute Plan to address problem: Shortness of breath improved. Albuterol/atrovent aerosol treatments q 6 hours. Subjective Date of service: 09/24/16 Principal diagnosis: Cavitory Pneumonia (? Aspiration); Hemoptysis (R/O TB) Interval history: Patient alert, awake . Still coughing up sputum mixed with blood. 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 Anti tuberculous medications as per ID..Patient also Has CT guided lung biopsy of right lower lobe nodule today.. Results are pending. Post BIopsy chest xray no pneumothorax. Objective Vital Signs - 12hr 09/24/16 09/24/16 09/24/16 17:20 17:50 18:24 Pulse Rate [ 80 86 Anterior Bilateral Throughout] Respiratory 18 18 Rate [Anterior Bilateral Throughout] Blood Pressure 112/63 O2 Sat by Pulse Oximetry 09/24/16 09/24/16 21:48 21:57 Pulse Rate [ 78 Anterior Bilateral Throughout] Respiratory 16 Rate [Anterior Bilateral Throughout] Blood Pressure O2 Sat by Pulse 100 Oximetry Constitutional: no acute distress, alert Eyes: non-icteric ENT: oropharynx moist Neck: supple, no lymphadenopathy Effort: mildly labored Ascultation: Bilateral: rales (RLL) Cardiovascular: regular rate and rhythm Gastrointestinal: normoactive bowel sounds, soft, non-tender, non-distended Integumentary: normal Extremities: no cyanosis, no edema, pulses normal, no ischemia or petechiae Neurologic: normal mental status, non-focal exam Psychiatric: mood appropriate, affect normal CBC and BMP: 09/23/16 03:10 09/23/16 03:10 ABG, PT/INR, D-dimer: PT/INR, D-dimer PT 13.4 Sec. (12.2-14.9) 09/23/16 16:56 INR 1.03 (0.87-1.13) 09/23/16 16:56 Abnormal lab findings: Abnormal Labs 09/19/16 09/19/16 09/19/16 11:59 16:44 18:06 WBC Lymph % (Auto) Bee % (Auto) Lymph # Bee # Seg Neutrophils % Seg Neuts % (Manual) Lymphocytes % (Manual) Seg Neutrophils # Man Lymphocytes # (Manual) Sodium Potassium Chloride BUN Creatinine Glucose POC Glucose 321 H 479 H > 500 H Hemoglobin A1c C-Reactive Protein 09/19/16 09/19/16 09/20/16 20:58 22:38 04:12 WBC 14.2 H Lymph % (Auto) Bee % (Auto) Lymph # Bee # Seg Neutrophils % Seg Neuts % (Manual) 93.0 H Lymphocytes % (Manual) 3.0 L Seg Neutrophils # Man 13.2 H Lymphocytes # (Manual) 0.4 L Sodium Potassium Chloride BUN Creatinine Glucose POC Glucose > 500 H 404 H Hemoglobin A1c C-Reactive Protein 09/20/16 09/20/16 09/20/16 04:12 07:37 11:41 WBC Lymph % (Auto) Bee % (Auto) Lymph # Bee # Seg Neutrophils % Seg Neuts % (Manual) Lymphocytes % (Manual) Seg Neutrophils # Man Lymphocytes # (Manual) Sodium 135 L D Potassium Chloride 97.6 L BUN 31 H Creatinine 0.7 L Glucose 354 H POC Glucose 362 H 415 H Hemoglobin A1c C-Reactive Protein 09/20/16 09/20/16 09/21/16 16:25 17:53 07:31 WBC Lymph % (Auto) Bee % (Auto) Lymph # Bee # Seg Neutrophils % Seg Neuts % (Manual) Lymphocytes % (Manual) Seg Neutrophils # Man Lymphocytes # (Manual) Sodium Potassium Chloride BUN Creatinine Glucose POC Glucose 313 H 139 H Hemoglobin A1c C-Reactive Protein 1.60 H 09/21/16 09/21/16 09/21/16 07:49 07:49 11:50 WBC Lymph % (Auto) Bee % (Auto) Lymph # Bee # Seg Neutrophils % Seg Neuts % (Manual) Lymphocytes % (Manual) Seg Neutrophils # Man Lymphocytes # (Manual) Sodium Potassium 5.2 H D Chloride BUN 28 H Creatinine Glucose 139 H POC Glucose 307 H Hemoglobin A1c 12.6 H C-Reactive Protein 09/21/16 09/21/16 09/22/16 17:09 21:16 00:13 WBC Lymph % (Auto) Bee % (Auto) Lymph # Bee # Seg Neutrophils % Seg Neuts % (Manual) Lymphocytes % (Manual) Seg Neutrophils # Man Lymphocytes # (Manual) Sodium Potassium Chloride BUN Creatinine Glucose POC Glucose 203 H 255 H 49 L Hemoglobin A1c C-Reactive Protein 09/22/16 09/22/16 09/22/16 00:31 05:25 05:25 WBC Lymph % (Auto) 12.1 L Bee % (Auto) 14.6 H Lymph # 0.8 L Bee # 1.0 H Seg Neutrophils % 71.7 H Seg Neuts % (Manual) Lymphocytes % (Manual) Seg Neutrophils # Man Lymphocytes # (Manual) Sodium Potassium Chloride BUN Creatinine Glucose 255 H POC Glucose 246 H Hemoglobin A1c C-Reactive Protein 09/22/16 09/22/16 09/22/16 07:51 11:29 16:29 WBC Lymph % (Auto) Bee % (Auto) Lymph # Bee # Seg Neutrophils % Seg Neuts % (Manual) Lymphocytes % (Manual) Seg Neutrophils # Man Lymphocytes # (Manual) Sodium Potassium Chloride BUN Creatinine Glucose POC Glucose 268 H 323 H 252 H Hemoglobin A1c C-Reactive Protein 09/22/16 09/23/16 09/23/16 20:57 03:10 03:10 WBC Lymph % (Auto) Bee % (Auto) 11.3 H Lymph # Bee # 0.9 H Seg Neutrophils % 72.0 H Seg Neuts % (Manual) Lymphocytes % (Manual) Seg Neutrophils # Man Lymphocytes # (Manual) Sodium 136 L Potassium Chloride 96.6 L BUN Creatinine Glucose 153 H POC Glucose 165 H Hemoglobin A1c C-Reactive Protein 07/18/17 07/18/17 07/18/17 07:51 11:21 16:32 WBC Lymph % (Auto) Bee % (Auto) Lymph # Bee # Seg Neutrophils % Seg Neuts % (Manual) Lymphocytes % (Manual) Seg Neutrophils # Man Lymphocytes # (Manual) Sodium Potassium Chloride BUN Creatinine Glucose POC Glucose 121 H 251 H 302 H Hemoglobin A1c C-Reactive Protein 09/23/16 09/24/16 09/24/16 21:13 07:43 12:12 WBC Lymph % (Auto) Bee % (Auto) Lymph # Bee # Seg Neutrophils % Seg Neuts % (Manual) Lymphocytes % (Manual) Seg Neutrophils # Man Lymphocytes # (Manual) Sodium Potassium Chloride BUN Creatinine Glucose POC Glucose 230 H 222 H 243 H Hemoglobin A1c C-Reactive Protein 09/24/16 16:44 WBC Lymph % (Auto) Bee % (Auto) Lymph # Bee # Seg Neutrophils % Seg Neuts % (Manual) Lymphocytes % (Manual) Seg Neutrophils # Man Lymphocytes # (Manual) Sodium Potassium Chloride BUN Creatinine Glucose POC Glucose 351 H Hemoglobin A1c C-Reactive Protein Chest x-ray: report reviewed (Post biopsy chest xray no pneumothorax.), image reviewed
[2016-09-25] MEDS: DUONEB *Not for PRN Use IH SCH ×4 (02:35→20:16)
--- NOTE | 2016-09-25 08:05 | Progress Note ---
Assessment and Plan - Patient Problems (1) Pneumonia Current Visit: Yes Status: Acute Qualifiers: Pneumonia type: due to unspecified organism Aspiration pneumonia type: A Laterality: bilateral Lung location: L Plan to address problem: 1. Apparent mycobacterial infection, non-tuberculous vs. tuberculous. 2. Await further data from path and cultures. Keep Zosyn for now. 3. Will also start empiric RIPE/B6 therapy. (2) Hemoptysis Current Visit: Yes Status: Acute Plan to address problem: Remains stable. Subjective Date of service: 09/25/16 Principal diagnosis: Cavitory Pneumonia (? Aspiration); Hemoptysis (R/O TB) Interval history: Patient completed CT-guided lung nodule biopsy yesterday. Sputum with 4+ AFB present. Objective - Constitutional Vitals: Vital Signs Temp Pulse Resp BP Pulse Ox 98.3 F 84 16 156/72 99 09/24/16 22:00 09/25/16 02:45 09/25/16 02:45 09/24/16 22:00 09/24/16 22:00 Temperature -Last 24 Hours Temperature 98.3 F Temperature 97.6 F General appearance: Present: no acute distress - Respiratory Respiratory: bilateral: CTA, negative: rales, rhonchi - Cardiovascular Rhythm: regular Heart Sounds: Present: S1 & S2 Extremities: No edema - Gastrointestinal General gastrointestinal: Present: soft, non-tender, non-distended - Integumentary Integumentary: no jaundice, no rash - Labs CBC & Chem 7: 09/23/16 03:10 09/23/16 03:10 Labs: Abnormal lab results 09/22/16 09/24/16 09/24/16 Range/Units 14:36 12:12 16:44 POC Glucose 243 H 351 H (70-105) TB (QFT) Gold In Tube Positive H (Negative) 09/24/16 09/25/16 Range/Units 22:10 07:42 POC Glucose 242 H 154 H (70-105) TB (QFT) Gold In Tube (Negative) Microbiology 09/20/16 20:01 Peripheral/Venous Blood Culture - Preliminary NO GROWTH AFTER 4 DAYS 09/20/16 17:53 Peripheral/Venous Blood Culture - Preliminary NO GROWTH AFTER 4 DAYS 09/21/16 Unknown Sputum - Expectorated Sputum AFB Smear Concentration - Final (4+ AFB organisms seen) 09/22/16 Unknown Sputum - Expectorated Sputum Sputum Culture - Final 09/21/16 08:57 Serum Cryptococcal Antigen - Final 09/21/16 Unknown Sputum - Expectorated Sputum Sputum Culture - Final 09/21/16 Unknown Sputum - Expectorated Sputum Sputum Culture - Final - Imaging and cardiology Chest x-ray: report reviewed (no residual post-procedural pneumothorax)
--- NOTE | 2016-09-25 09:25 | Progress Note ---
Assessment and Plan Assessment and plan: Pulmonary tuberculosis. Patient was admitted for chronic cough, hemoptysis CT showed multiple cavitary mass lesions. Lung biopsy done yesterday Sputum for AFB X 3, received. One set positive for AFB, presumed pulmonary tuberculosis Pulmonary and hematology/ oncology following. Likely will be started on anti -TB meds by ID Physician Hememoptysis due to TB Leukocytosis resolved Diabetes mellitus type 2. Continue fingerstick glucose before every meal and at bedtime - Blood glucose uncontrolled. Increase Novolin 70/30 to 18 Units subcut bid Hyponatremia Malnutrition DVT prophylaxis with Lovenox Disposition: Continue inpatient care History Interval history: Still coughing bloody sputum, no fever Hospitalist Physical - Physical exam Narrative exam: Gen Appearance: No acute distress, coughing HEENT: normocephalic, atraumatic Neck: supple, no JVD Lungs: Bilateral rales. Heart: S1 and S2 regular, no murmurs or gallop Abdomen: Soft, non-tender, non-distended, normal bowel sounds Extremity: No edema, clubbing or cyanosis Neuro : Awake, alert, oriented x 3, moves all extremities. Psych: normal mood - Constitutional Vitals: Temp Pulse Resp BP Pulse Ox 98.3 F 84 16 156/72 99 09/24/16 22:00 09/25/16 02:45 09/25/16 02:45 09/24/16 22:00 09/24/16 22:00 General appearance: Present: no acute distress, other (daughter at bedside) Results - Labs CBC & Chem 7: 09/23/16 03:10 09/23/16 03:10 Labs: Laboratory Last Values WBC 8.3 K/mm3 (4.5-11.0) 09/23/16 03:10 RBC 4.11 M/mm3 (3.65-5.03) 09/23/16 03:10 Hgb 12.7 gm/dl (11.8-15.2) 09/23/16 03:10 Hct 37.1 % (35.5-45.6) 09/23/16 03:10 MCV 90 fl (84-94) 09/23/16 03:10 MCH 31 pg (28-32) 09/23/16 03:10 MCHC 34 % (32-34) 09/23/16 03:10 RDW 14.4 % (13.2-15.2) 09/23/16 03:10 Plt Count 273 K/mm3 (140-440) 09/23/16 03:10 Lymph % (Auto) 14.2 % (13.4-35.0) 09/23/16 03:10 [place] % (Auto) 11.3 % (0.0-7.3) H 09/23/16 03:10 Eos % (Auto) 2.0 % (0.0-4.3) 09/23/16 03:10 Baso % (Auto) 0.5 % (0.0-1.8) 09/23/16 03:10 Lymph # 1.2 K/mm3 (1.2-5.4) 09/23/16 03:10 [place] # 0.9 K/mm3 (0.0-0.8) H 09/23/16 03:10 Eos # 0.2 K/mm3 (0.0-0.4) 09/23/16 03:10 Baso # 0.0 K/mm3 (0.0-0.1) 09/23/16 03:10 Add Manual Diff Complete 09/20/16 04:12 Total Counted 100 09/20/16 04:12 Seg Neutrophils % 72.0 % (40.0-70.0) H 09/23/16 03:10 Seg Neuts % (Manual) 93.0 % (40.0-70.0) H 09/20/16 04:12 Band Neutrophils % 0 % 09/20/16 04:12 Lymphocytes % (Manual) 3.0 % (13.4-35.0) L 09/20/16 04:12 Reactive Lymphs % (Man) 0 % 09/20/16 04:12 Monocytes % (Manual) 4.0 % (0.0-7.3) 09/20/16 04:12 Eosinophils % (Manual) 0 % (0.0-4.3) 09/20/16 04:12 Basophils % (Manual) 0 % (0.0-1.8) 09/20/16 04:12 Metamyelocytes % 0 % 09/20/16 04:12 Myelocytes % 0 % 09/20/16 04:12 Promyelocytes % 0 % 09/20/16 04:12 Blast Cells % 0 % 09/20/16 04:12 Nucleated RBC % Not Reportable 09/20/16 04:12 Seg Neutrophils # 6.0 K/mm3 (1.8-7.7) 09/23/16 03:10 Seg Neutrophils # Man 13.2 K/mm3 (1.8-7.7) H 09/20/16 04:12 Band Neutrophils # 0.0 K/mm3 09/20/16 04:12 Lymphocytes # (Manual) 0.4 K/mm3 (1.2-5.4) L 09/20/16 04:12 Abs React Lymphs (Man) 0.0 K/mm3 09/20/16 04:12 Monocytes # (Manual) 0.6 K/mm3 (0.0-0.8) 09/20/16 04:12 Eosinophils # (Manual) 0.0 K/mm3 (0.0-0.4) 09/20/16 04:12 Basophils # (Manual) 0.0 K/mm3 (0.0-0.1) 09/20/16 04:12 Metamyelocytes # 0.0 K/mm3 09/20/16 04:12 Myelocytes # 0.0 K/mm3 09/20/16 04:12 Promyelocytes # 0.0 K/mm3 09/20/16 04:12 Blast Cells # 0.0 K/mm3 09/20/16 04:12 WBC Morphology Not Reportable 09/20/16 04:12 Hypersegmented Neuts Not Reportable 09/20/16 04:12 Hyposegmented Neuts Not Reportable 09/20/16 04:12 Hypogranular Neuts Not Reportable 09/20/16 04:12 Smudge Cells Not Reportable 09/20/16 04:12 Toxic Granulation Not Reportable 09/20/16 04:12 Toxic Vacuolation Not Reportable 09/20/16 04:12 Dohle Bodies Not Reportable 09/20/16 04:12 Pelger-Huet Anomaly Not Reportable 09/20/16 04:12 Lalit Rods Not Reportable 09/20/16 04:12 Platelet Estimate Appears normal 09/20/16 04:12 Clumped Platelets Not Reportable 09/20/16 04:12 Plt Clumps, EDTA Not Reportable 09/20/16 04:12 Large Platelets Not Reportable 09/20/16 04:12 Giant Platelets Not Reportable 09/20/16 04:12 Platelet Satelliting Not Reportable 09/20/16 04:12 Plt Morphology Comment Not Reportable 09/20/16 04:12 RBC Morphology Normal 09/20/16 04:12 Dimorphic RBCs Not Reportable 09/20/16 04:12 Polychromasia Not Reportable 09/20/16 04:12 Hypochromasia Not Reportable 09/20/16 04:12 Poikilocytosis Not Reportable 09/20/16 04:12 Anisocytosis Not Reportable 09/20/16 04:12 Microcytosis Not Reportable 09/20/16 04:12 Macrocytosis Not Reportable 09/20/16 04:12 Spherocytes Not Reportable 09/20/16 04:12 Pappenheimer Bodies Not Reportable 09/20/16 04:12 Sickle Cells Not Reportable 09/20/16 04:12 Target Cells Not Reportable 09/20/16 04:12 Tear Drop Cells Not Reportable 09/20/16 04:12 Ovalocytes Not Reportable 09/20/16 04:12 Helmet Cells Not Reportable 09/20/16 04:12 Goode-Mucarabones Bodies Not Reportable 09/20/16 04:12 [place] Rings Not Reportable 09/20/16 04:12 [place] Cells Not Reportable 09/20/16 04:12 Bite Cells Not Reportable 09/20/16 04:12 Crenated Cell Not Reportable 09/20/16 04:12 Elliptocytes Not Reportable 09/20/16 04:12 Acanthocytes (Spur) Not Reportable 09/20/16 04:12 Rouleaux Not Reportable 09/20/16 04:12 Hemoglobin C Crystals Not Reportable 09/20/16 04:12 Schistocytes Not Reportable 09/20/16 04:12 Malaria parasites Not Reportable 09/20/16 04:12 [place] Bodies Not Reportable 09/20/16 04:12 Hem Pathologist Commnt No 09/20/16 04:12 PT 13.4 Sec. (12.2-14.9) 09/23/16 16:56 INR 1.03 (0.87-1.13) 09/23/16 16:56 VBG pH 7.500 (7.320-7.420) H 09/19/16 03:04 Sodium 136 mmol/L (137-145) L 09/23/16 03:10 Potassium 4.2 mmol/L (3.6-5.0) 09/23/16 03:10 Chloride 96.6 mmol/L (98-107) L 09/23/16 03:10 Carbon Dioxide 26 mmol/L (22-30) 09/23/16 03:10 Anion Gap 18 mmol/L 09/23/16 03:10 BUN 14 mg/dL (9-20) 09/23/16 03:10 Creatinine 0.9 mg/dL (0.8-1.5) 09/23/16 03:10 Estimated GFR > 60 ml/min 09/23/16 03:10 BUN/Creatinine Ratio 15.55 % 09/23/16 03:10 Glucose 153 mg/dL (75-100) H 09/23/16 03:10 POC Glucose 154 (70-105) H 09/25/16 07:42 Hemoglobin A1c 12.6 % (4-6) H 09/21/16 07:49 Calcium 8.7 mg/dL (8.4-10.2) 09/23/16 03:10 Troponin T < 0.010 ng/mL (0.00-0.029) 09/19/16 07:03 C-Reactive Protein 1.60 mg/dL (0.00-1.30) H 09/20/16 17:53 NT-Pro-B Natriuret Pep 280.0 pg/mL (0-900) 09/19/16 07:03 Urine Color Straw (Yellow) 09/19/16 Unknown Urine Turbidity Clear (Clear) 09/19/16 Unknown Urine pH 5.0 (5.0-7.0) 09/19/16 Unknown Ur Specific [place] 1.030 (1.003-1.030) 09/19/16 Unknown Urine Protein <15 mg/dl mg/dL (Negative) 09/19/16 Unknown Urine Glucose (UA) >=500 mg/dL (Negative) 09/19/16 Unknown Urine Ketones 20 mg/dL (Negative) 09/19/16 Unknown Urine Blood Neg (Negative) 09/19/16 Unknown Urine Nitrite Neg (Negative) 09/19/16 Unknown Urine Bilirubin Neg (Negative) 09/19/16 Unknown Urine Urobilinogen < 2.0 mg/dL (<2.0) 09/19/16 Unknown Ur Leukocyte Esterase Neg (Negative) 09/19/16 Unknown Urine WBC (Auto) 0.0 /HPF (0.0-6.0) 09/19/16 Unknown Urine RBC (Auto) 1.0 /HPF (0.0-6.0) 09/19/16 Unknown Urine Mucus Few /HPF 09/19/16 Unknown Proteinase 3 (PR3) Ab <1.0 AI (<1.0) 09/21/16 09:18 Myeloperoxidase Ab <1.0 AI (<1.0) 09/21/16 09:18 HIV 1&2 Antibody Rapid Non react (Non React) 09/21/16 09:18 HIV P24 Antigen Non react (Non React) 09/21/16 09:18 TB (QFT) Gold In Tube Positive (Negative) H 09/22/16 14:36 TB Test (QFT) Nil 3.81 IU/mL 09/22/16 14:36 TB Test Mitogen - Nil 5.89 IU/mL 09/22/16 14:36 TB Test Antigen - Nil 5.89 IU/mL 09/22/16 14:36
[2016-09-25] MEDS: ZESTRIL PO SCH (09:41)
[2016-09-25] MEDS: NOVOLOG SUB-Q SCH ×4 (09:41→22:01)
--- NOTE | 2016-09-25 10:08 | Progress Note ---
Assessment and Plan Assessment and Plan Patient alert, awake . Still coughing up sputum mixed with blood. 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 Anti tuberculous medications as per ID.Patient also Has CT guided lung biopsy of right lower lobe nodule. Results are pending. - Patient Problems (1) Hemoptysis Current Visit: Yes Status: Acute Plan to address problem: Patient still coughing up sputum mixed with blood. 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 Anti tuberculous medications as per ID.Patient also Has CT guided lung biopsy of right lower lobe . Results are pending. (2) Lung mass Current Visit: Yes Status: Acute Plan to address problem: Patient Has CT guided lung biopsy of right lower lobe nodule today.. Results are pending. Post BIopsy chest xray no pneumothorax. (3) Pneumonia Current Visit: Yes Status: Acute Qualifiers: Pneumonia type: due to unspecified organism Aspiration pneumonia type: A Laterality: bilateral Lung location: L Plan to address problem: Patient is on zosyn. (4) Shortness of breath Current Visit: Yes Status: Acute Plan to address problem: Shortness of breath improved. Albuterol/atrovent aerosol treatments q 6 hours. - Patient Problems (1) Hemoptysis Current Visit: Yes Status: Acute Plan to address problem: Secondary to tuberculosis. Improving. Continue with airborne precautions and hemodynamic monitoring Subjective Date of service: 09/25/16 Principal diagnosis: Cavitory Pneumonia (? Aspiration); Hemoptysis (R/O TB) Interval history: No new complaints. Vitals, labs, medications, chart reviewed. No overnight events. Still coughing but minimal blood. Still fatigued. Sleeping well, appetite is improving Objective - Exam Narrative Exam: Gen Appearance: Chronically ill looking, cachexia, No acute distress, coughing HEENT: normocephalic, atraumatic Neck: supple, no JVD Lungs: Bilateral rales. Heart: S1 and S2 regular, no murmurs or gallop Abdomen: Soft, non-tender, non-distended, normal bowel sounds Extremity: No edema, clubbing or cyanosis Neuro : Awake, alert, oriented x 3, moves all extremities. Psych: normal mood Vital Signs - 12hr 09/25/16 09/25/16 09/25/16 02:45 07:50 08:00 Pulse Rate Pulse Rate [ 84 86 88 Anterior Bilateral Throughout] Respiratory 16 18 18 Rate [Anterior Bilateral Throughout] Blood Pressure O2 Sat by Pulse Oximetry 09/25/16 09/25/16 09:33 09:41 Pulse Rate 96 H Pulse Rate [ Anterior Bilateral Throughout] Respiratory Rate [Anterior Bilateral Throughout] Blood Pressure 141/58 O2 Sat by Pulse 99 Oximetry Constitutional: no acute distress, alert Eyes: non-icteric ENT: oropharynx moist Neck: supple, no lymphadenopathy Effort: mildly labored Ascultation: Bilateral: rales (RLL) Cardiovascular: regular rate and rhythm Gastrointestinal: normoactive bowel sounds, soft, non-tender, non-distended Integumentary: normal Extremities: no cyanosis, no edema, pulses normal, no ischemia or petechiae Neurologic: normal mental status, non-focal exam Psychiatric: mood appropriate, affect normal CBC and BMP: 09/26/16 04:09 09/26/16 04:09 ABG, PT/INR, D-dimer: PT/INR, D-dimer PT 13.4 Sec. (12.2-14.9) 09/23/16 16:56 INR 1.03 (0.87-1.13) 09/23/16 16:56 Abnormal lab findings: Abnormal Labs 09/19/16 09/19/16 09/19/16 11:59 16:44 18:06 WBC Lymph % (Auto) [place] % (Auto) Lymph # [place] # Seg Neutrophils % Seg Neuts % (Manual) Lymphocytes % (Manual) Seg Neutrophils # Man Lymphocytes # (Manual) Sodium Potassium Chloride BUN Creatinine Glucose POC Glucose 321 H 479 H > 500 H Hemoglobin A1c C-Reactive Protein TB (QFT) Gold In Tube 09/19/16 09/19/16 09/20/16 20:58 22:38 04:12 WBC 14.2 H Lymph % (Auto) [place] % (Auto) Lymph # [place] # Seg Neutrophils % Seg Neuts % (Manual) 93.0 H Lymphocytes % (Manual) 3.0 L Seg Neutrophils # Man 13.2 H Lymphocytes # (Manual) 0.4 L Sodium Potassium Chloride BUN Creatinine Glucose POC Glucose > 500 H 404 H Hemoglobin A1c C-Reactive Protein TB (QFT) Gold In Tube 09/20/16 09/20/16 09/20/16 04:12 07:37 11:41 WBC Lymph % (Auto) [place] % (Auto) Lymph # [place] # Seg Neutrophils % Seg Neuts % (Manual) Lymphocytes % (Manual) Seg Neutrophils # Man Lymphocytes # (Manual) Sodium 135 L D Potassium Chloride 97.6 L BUN 31 H Creatinine 0.7 L Glucose 354 H POC Glucose 362 H 415 H Hemoglobin A1c C-Reactive Protein TB (QFT) Gold In Tube 09/20/16 09/20/16 09/21/16 16:25 17:53 07:31 WBC Lymph % (Auto) [place] % (Auto) Lymph # [place] # Seg Neutrophils % Seg Neuts % (Manual) Lymphocytes % (Manual) Seg Neutrophils # Man Lymphocytes # (Manual) Sodium Potassium Chloride BUN Creatinine Glucose POC Glucose 313 H 139 H Hemoglobin A1c C-Reactive Protein 1.60 H TB (QFT) Gold In Tube 09/21/16 09/21/16 09/21/16 07:49 07:49 11:50 WBC Lymph % (Auto) [place] % (Auto) Lymph # [place] # Seg Neutrophils % Seg Neuts % (Manual) Lymphocytes % (Manual) Seg Neutrophils # Man Lymphocytes # (Manual) Sodium Potassium 5.2 H D Chloride BUN 28 H Creatinine Glucose 139 H POC Glucose 307 H Hemoglobin A1c 12.6 H C-Reactive Protein TB (QFT) Gold In Tube 09/21/16 09/21/16 09/22/16 17:09 21:16 00:13 WBC Lymph % (Auto) [place] % (Auto) Lymph # [place] # Seg Neutrophils % Seg Neuts % (Manual) Lymphocytes % (Manual) Seg Neutrophils # Man Lymphocytes # (Manual) Sodium Potassium Chloride BUN Creatinine Glucose POC Glucose 203 H 255 H 49 L Hemoglobin A1c C-Reactive Protein TB (QFT) Gold In Tube 09/22/16 09/22/16 09/22/16 00:31 05:25 05:25 WBC Lymph % (Auto) 12.1 L [place] % (Auto) 14.6 H Lymph # 0.8 L [place] # 1.0 H Seg Neutrophils % 71.7 H Seg Neuts % (Manual) Lymphocytes % (Manual) Seg Neutrophils # Man Lymphocytes # (Manual) Sodium Potassium Chloride BUN Creatinine Glucose 255 H POC Glucose 246 H Hemoglobin A1c C-Reactive Protein TB (QFT) Gold In Tube 09/22/16 09/22/16 09/22/16 07:51 11:29 14:36 WBC Lymph % (Auto) [place] % (Auto) Lymph # [place] # Seg Neutrophils % Seg Neuts % (Manual) Lymphocytes % (Manual) Seg Neutrophils # Man Lymphocytes # (Manual) Sodium Potassium Chloride BUN Creatinine Glucose POC Glucose 268 H 323 H Hemoglobin A1c C-Reactive Protein TB (QFT) Gold In Tube Positive H 09/22/16 09/22/16 09/23/16 16:29 20:57 03:10 WBC Lymph % (Auto) [place] % (Auto) 11.3 H Lymph # [place] # 0.9 H Seg Neutrophils % 72.0 H Seg Neuts % (Manual) Lymphocytes % (Manual) Seg Neutrophils # Man Lymphocytes # (Manual) Sodium Potassium Chloride BUN Creatinine Glucose POC Glucose 252 H 165 H Hemoglobin A1c C-Reactive Protein TB (QFT) Gold In Tube 09/23/16 09/23/16 09/23/16 03:10 07:51 11:21 WBC Lymph % (Auto) [place] % (Auto) Lymph # [place] # Seg Neutrophils % Seg Neuts % (Manual) Lymphocytes % (Manual) Seg Neutrophils # Man Lymphocytes # (Manual) Sodium 136 L Potassium Chloride 96.6 L BUN Creatinine Glucose 153 H POC Glucose 121 H 251 H Hemoglobin A1c C-Reactive Protein TB (QFT) Gold In Tube 09/23/16 09/23/16 09/24/16 16:32 21:13 07:43 WBC Lymph % (Auto) [place] % (Auto) Lymph # [place] # Seg Neutrophils % Seg Neuts % (Manual) Lymphocytes % (Manual) Seg Neutrophils # Man Lymphocytes # (Manual) Sodium Potassium Chloride BUN Creatinine Glucose POC Glucose 302 H 230 H 222 H Hemoglobin A1c C-Reactive Protein TB (QFT) Gold In Tube 09/24/16 09/24/16 09/24/16 12:12 16:44 22:10 WBC Lymph % (Auto) [place] % (Auto) Lymph # [place] # Seg Neutrophils % Seg Neuts % (Manual) Lymphocytes % (Manual) Seg Neutrophils # Man Lymphocytes # (Manual) Sodium Potassium Chloride BUN Creatinine Glucose POC Glucose 243 H 351 H 242 H Hemoglobin A1c C-Reactive Protein TB (QFT) Gold In Tube 09/25/16 07:42 WBC Lymph % (Auto) [place] % (Auto) Lymph # [place] # Seg Neutrophils % Seg Neuts % (Manual) Lymphocytes % (Manual) Seg Neutrophils # Man Lymphocytes # (Manual) Sodium Potassium Chloride BUN Creatinine Glucose POC Glucose 154 H Hemoglobin A1c C-Reactive Protein TB (QFT) Gold In Tube
--- NOTE | 2016-09-25 10:19 | Hem/Onc Progress Note ---
Assessment and Plan awaiting bx Subjective Date of service: 09/25/16 Interval history: pt better. pain R side of the chest better. still coughing,s/p bx Objective - Constitutional Vitals: Last Vital Signs Temp 98.3 F 09/24/16 22:00 Pulse 96 H 09/25/16 09:41 Resp 18 09/25/16 08:00 BP 141/58 09/25/16 09:41 Pulse Ox 99 09/25/16 09:33 General appearance: no acute distress - Neck Neck: supple - Respiratory Respiratory: bilateral: CTA - Cardiovascular Rhythm: regular - Labs Lab Results: Laboratory Results - last 24 hr 09/22/16 09/24/16 09/24/16 14:36 12:12 16:44 POC Glucose 243 H 351 H TB (QFT) Gold In Tube Positive H TB Test (QFT) Nil 3.81 TB Test Mitogen - Nil 5.89 TB Test Antigen - Nil 5.89 09/24/16 09/25/16 22:10 07:42 POC Glucose 242 H 154 H TB (QFT) Gold In Tube TB Test (QFT) Nil TB Test Mitogen - Nil TB Test Antigen - Nil
[2016-09-25] MEDS: ZOSYN/NS 4.5GM/100ML 4.5 GM/100 ML VIAL IV SCH ×3 (13:12→20:59)
[2016-09-25] MEDS: MYAMBUTOL PO SCH (21:07)
[2016-09-25] MEDS: ISONIAZID PO SCH (21:08)
[2016-09-25] MEDS: VITAMIN B-6 PO SCH (21:09)
[2016-09-25] MEDS: PYRAZINAMIDE PO SCH (21:09)
[2016-09-25] MEDS: TYLENOL PO PRN (21:24)
[2016-09-25] MEDS: RIFADIN PO SCH (21:25)
[2016-09-26] MEDS: DUONEB *Not for PRN Use IH SCH ×4 (01:46→21:43)
[2016-09-26 04:34] LABS: Hematocrit 40.5 % (35.5-45.6); Hemoglobin 14.1 gm/dl (11.8-15.2); Mean Corpuscular HGB Conc 35 % (32-34); Mean Corpuscular Hemoglobin 31 pg (28-32); Mean Corpuscular Volume 90 fl (84-94); Platelet Count 300 K/mm3 (140-440); Red Cell Distribution Width 13.9 % (13.2-15.2); White Blood Count 9.9 K/mm3 (4.5-11.0)
[2016-09-26 04:49] LABS: Alanine Aminotransferase 16 units/L (7-56); Albumin 3.4 g/dL (3.9-5); Albumin/Globulin Ratio 0.9 %; Alkaline Phosphatase 63 units/L (35-129); Anion Gap 19 mmol/L; BUN/Creatinine Ratio 15.55; Blood Urea Nitrogen 14 mg/dL (9-20); Calcium 9.2 mg/dL (8.4-10.2); Carbon Dioxide 25 mmol/L (22-30); Chloride 91.6 mmol/L (98-107); Glucose 81 mg/dL (75-100); Potassium 3.5 mmol/L (3.6-5.0); Sodium 132 mmol/L (137-145); Total Protein 7.4 g/dL (6.3-8.2)
[2016-09-26] MEDS ORDERED: K-DUR PO ONE (07:51)
--- NOTE | 2016-09-26 08:27 | Progress Note ---
Assessment and Plan Assessment and plan: Pulmonary tuberculosis. Patient was admitted for chronic cough, hemoptysis CT showed multiple cavitary mass lesions. Lung biopsy done. Sputum for AFB X 3, received. One set positive for AFB, presumed pulmonary tuberculosis Pulmonary and hematology/ oncology following. Started on anti -TB meds by ID Physician yesterday with RIPE regimen. Hememoptysis due to TB Leukocytosis resolved Diabetes mellitus type 2. Continue fingerstick glucose before every meal and at bedtime - Blood glucose uncontrolled. Increased Novolin 70/30 to 18 Units subcut bid Hyponatremia Malnutrition DVT prophylaxis with Lovenox Disposition: Continue inpatient care History Interval history: Still coughing bloody sputum, no fever x 2 days Hospitalist Physical - Physical exam Narrative exam: Gen Appearance: No acute distress, coughing HEENT: normocephalic, atraumatic Neck: supple, no JVD Lungs: Bilateral rales. Heart: S1 and S2 regular, no murmurs or gallop Abdomen: Soft, non-tender, non-distended, normal bowel sounds Extremity: No edema, clubbing or cyanosis Neuro : Awake, alert, oriented x 3, moves all extremities. Psych: normal mood - Constitutional Vitals: Temp Pulse Resp BP Pulse Ox 99.4 F 92 H 19 141/58 95 09/25/16 10:00 09/25/16 20:26 09/25/16 22:00 09/25/16 10:00 09/25/16 20:16 General appearance: Present: no acute distress Results - Labs CBC & Chem 7: 09/26/16 04:09 09/26/16 04:09 Labs: Laboratory Last Values WBC 9.9 K/mm3 (4.5-11.0) 09/26/16 04:09 RBC 4.50 M/mm3 (3.65-5.03) 09/26/16 04:09 Hgb 14.1 gm/dl (11.8-15.2) 09/26/16 04:09 Hct 40.5 % (35.5-45.6) 09/26/16 04:09 MCV 90 fl (84-94) 09/26/16 04:09 MCH 31 pg (28-32) 09/26/16 04:09 MCHC 35 % (32-34) H 09/26/16 04:09 RDW 13.9 % (13.2-15.2) 09/26/16 04:09 Plt Count 300 K/mm3 (140-440) 09/26/16 04:09 Lymph % (Auto) 14.2 % (13.4-35.0) 09/23/16 03:10 [place] % (Auto) 11.3 % (0.0-7.3) H 09/23/16 03:10 Eos % (Auto) 2.0 % (0.0-4.3) 09/23/16 03:10 Baso % (Auto) 0.5 % (0.0-1.8) 09/23/16 03:10 Lymph # 1.2 K/mm3 (1.2-5.4) 09/23/16 03:10 [place] # 0.9 K/mm3 (0.0-0.8) H 09/23/16 03:10 Eos # 0.2 K/mm3 (0.0-0.4) 09/23/16 03:10 Baso # 0.0 K/mm3 (0.0-0.1) 09/23/16 03:10 Add Manual Diff Complete 09/20/16 04:12 Total Counted 100 09/20/16 04:12 Seg Neutrophils % 72.0 % (40.0-70.0) H 09/23/16 03:10 Seg Neuts % (Manual) 93.0 % (40.0-70.0) H 09/20/16 04:12 Band Neutrophils % 0 % 09/20/16 04:12 Lymphocytes % (Manual) 3.0 % (13.4-35.0) L 09/20/16 04:12 Reactive Lymphs % (Man) 0 % 09/20/16 04:12 Monocytes % (Manual) 4.0 % (0.0-7.3) 09/20/16 04:12 Eosinophils % (Manual) 0 % (0.0-4.3) 09/20/16 04:12 Basophils % (Manual) 0 % (0.0-1.8) 09/20/16 04:12 Metamyelocytes % 0 % 09/20/16 04:12 Myelocytes % 0 % 09/20/16 04:12 Promyelocytes % 0 % 09/20/16 04:12 Blast Cells % 0 % 09/20/16 04:12 Nucleated RBC % Not Reportable 09/20/16 04:12 Seg Neutrophils # 6.0 K/mm3 (1.8-7.7) 09/23/16 03:10 Seg Neutrophils # Man 13.2 K/mm3 (1.8-7.7) H 09/20/16 04:12 Band Neutrophils # 0.0 K/mm3 09/20/16 04:12 Lymphocytes # (Manual) 0.4 K/mm3 (1.2-5.4) L 09/20/16 04:12 Abs React Lymphs (Man) 0.0 K/mm3 09/20/16 04:12 Monocytes # (Manual) 0.6 K/mm3 (0.0-0.8) 09/20/16 04:12 Eosinophils # (Manual) 0.0 K/mm3 (0.0-0.4) 09/20/16 04:12 Basophils # (Manual) 0.0 K/mm3 (0.0-0.1) 09/20/16 04:12 Metamyelocytes # 0.0 K/mm3 09/20/16 04:12 Myelocytes # 0.0 K/mm3 09/20/16 04:12 Promyelocytes # 0.0 K/mm3 09/20/16 04:12 Blast Cells # 0.0 K/mm3 09/20/16 04:12 WBC Morphology Not Reportable 09/20/16 04:12 Hypersegmented Neuts Not Reportable 09/20/16 04:12 Hyposegmented Neuts Not Reportable 09/20/16 04:12 Hypogranular Neuts Not Reportable 09/20/16 04:12 Smudge Cells Not Reportable 09/20/16 04:12 Toxic Granulation Not Reportable 09/20/16 04:12 Toxic Vacuolation Not Reportable 09/20/16 04:12 Dohle Bodies Not Reportable 09/20/16 04:12 Pelger-Huet Anomaly Not Reportable 09/20/16 04:12 Lalit Rods Not Reportable 09/20/16 04:12 Platelet Estimate Appears normal 09/20/16 04:12 Clumped Platelets Not Reportable 09/20/16 04:12 Plt Clumps, EDTA Not Reportable 09/20/16 04:12 Large Platelets Not Reportable 09/20/16 04:12 Giant Platelets Not Reportable 09/20/16 04:12 Platelet Satelliting Not Reportable 09/20/16 04:12 Plt Morphology Comment Not Reportable 09/20/16 04:12 RBC Morphology Normal 09/20/16 04:12 Dimorphic RBCs Not Reportable 09/20/16 04:12 Polychromasia Not Reportable 09/20/16 04:12 Hypochromasia Not Reportable 09/20/16 04:12 Poikilocytosis Not Reportable 09/20/16 04:12 Anisocytosis Not Reportable 09/20/16 04:12 Microcytosis Not Reportable 09/20/16 04:12 Macrocytosis Not Reportable 09/20/16 04:12 Spherocytes Not Reportable 09/20/16 04:12 Pappenheimer Bodies Not Reportable 09/20/16 04:12 Sickle Cells Not Reportable 09/20/16 04:12 Target Cells Not Reportable 09/20/16 04:12 Tear Drop Cells Not Reportable 09/20/16 04:12 Ovalocytes Not Reportable 09/20/16 04:12 Helmet Cells Not Reportable 09/20/16 04:12 Goode-Elberfeld Bodies Not Reportable 09/20/16 04:12 [place] Rings Not Reportable 09/20/16 04:12 Valerie Cells Not Reportable 09/20/16 04:12 Bite Cells Not Reportable 09/20/16 04:12 Crenated Cell Not Reportable 09/20/16 04:12 Elliptocytes Not Reportable 09/20/16 04:12 Acanthocytes (Spur) Not Reportable 09/20/16 04:12 Rouleaux Not Reportable 09/20/16 04:12 Hemoglobin C Crystals Not Reportable 09/20/16 04:12 Schistocytes Not Reportable 09/20/16 04:12 Malaria parasites Not Reportable 09/20/16 04:12 [place] Bodies Not Reportable 09/20/16 04:12 Hem Pathologist Commnt No 09/20/16 04:12 PT 13.4 Sec. (12.2-14.9) 09/23/16 16:56 INR 1.03 (0.87-1.13) 09/23/16 16:56 VBG pH 7.500 (7.320-7.420) H 09/19/16 03:04 Sodium 132 mmol/L (137-145) L 09/26/16 04:09 Potassium 3.5 mmol/L (3.6-5.0) L 09/26/16 04:09 Chloride 91.6 mmol/L (98-107) L 09/26/16 04:09 Carbon Dioxide 25 mmol/L (22-30) 09/26/16 04:09 Anion Gap 19 mmol/L 09/26/16 04:09 BUN 14 mg/dL (9-20) 09/26/16 04:09 Creatinine 0.9 mg/dL (0.8-1.5) 09/26/16 04:09 Estimated GFR > 60 ml/min 09/26/16 04:09 BUN/Creatinine Ratio 15.55 % 09/26/16 04:09 Glucose 81 mg/dL (75-100) 09/26/16 04:09 POC Glucose 93 (70-105) 09/26/16 07:39 Hemoglobin A1c 12.6 % (4-6) H 09/21/16 07:49 Calcium 9.2 mg/dL (8.4-10.2) 09/26/16 04:09 Total Bilirubin 1.10 mg/dL (0.1-1.2) 09/26/16 04:09 AST 18 units/L (5-40) 09/26/16 04:09 ALT 16 units/L (7-56) 09/26/16 04:09 Alkaline Phosphatase 63 units/L (35-129) 09/26/16 04:09 Troponin T < 0.010 ng/mL (0.00-0.029) 09/19/16 07:03 C-Reactive Protein 1.60 mg/dL (0.00-1.30) H 09/20/16 17:53 NT-Pro-B Natriuret Pep 280.0 pg/mL (0-900) 09/19/16 07:03 Total Protein 7.4 g/dL (6.3-8.2) 09/26/16 04:09 Albumin 3.4 g/dL (3.9-5) L 09/26/16 04:09 Albumin/Globulin Ratio 0.9 % 09/26/16 04:09 Urine Color Straw (Yellow) 09/19/16 Unknown Urine Turbidity Clear (Clear) 09/19/16 Unknown Urine pH 5.0 (5.0-7.0) 09/19/16 Unknown Ur Specific [place] 1.030 (1.003-1.030) 09/19/16 Unknown Urine Protein <15 mg/dl mg/dL (Negative) 09/19/16 Unknown Urine Glucose (UA) >=500 mg/dL (Negative) 09/19/16 Unknown Urine Ketones 20 mg/dL (Negative) 09/19/16 Unknown Urine Blood Neg (Negative) 09/19/16 Unknown Urine Nitrite Neg (Negative) 09/19/16 Unknown Urine Bilirubin Neg (Negative) 09/19/16 Unknown Urine Urobilinogen < 2.0 mg/dL (<2.0) 09/19/16 Unknown Ur Leukocyte Esterase Neg (Negative) 09/19/16 Unknown Urine WBC (Auto) 0.0 /HPF (0.0-6.0) 09/19/16 Unknown Urine RBC (Auto) 1.0 /HPF (0.0-6.0) 09/19/16 Unknown Urine Mucus Few /HPF 09/19/16 Unknown Proteinase 3 (PR3) Ab <1.0 AI (<1.0) 09/21/16 09:18 Myeloperoxidase Ab <1.0 AI (<1.0) 09/21/16 09:18 HIV 1&2 Antibody Rapid Non react (Non React) 09/21/16 09:18 HIV P24 Antigen Non react (Non React) 09/21/16 09:18 TB (QFT) Gold In Tube Positive (Negative) H 09/22/16 14:36 TB Test (QFT) Nil 3.81 IU/mL 09/22/16 14:36 TB Test Mitogen - Nil 5.89 IU/mL 09/22/16 14:36 TB Test Antigen - Nil 5.89 IU/mL 09/22/16 14:36
[2016-09-26] MEDS: NOVOLOG SUB-Q SCH ×4 (09:11→22:38)
--- NOTE | 2016-09-26 09:17 | Hem/Onc Progress Note ---
Assessment and Plan At this time, I will sign off. If there is any clear-cut evidence of malignancy please call me back. Patient on anti-TB drugs. Thank you Subjective Date of service: 09/26/16 Interval history: pt better. pain R side of the chest better. still coughing,s/p bx. Preliminary biopsy report shows no malignancy. Patient has been started on anti-TB drugs by infectious disease. Objective - Constitutional Vitals: Last Vital Signs Temp 99.4 F 09/25/16 10:00 Pulse 92 H 09/25/16 20:26 Resp 19 09/25/16 22:00 BP 141/58 09/25/16 10:00 Pulse Ox 95 09/25/16 20:16 General appearance: no acute distress Performance status: 3-limited selfcare - Neck Neck: supple - Respiratory Respiratory: bilateral: diminished - Cardiovascular Rhythm: regular - Labs Lab Results: Laboratory Results - last 24 hr 09/25/16 09/25/16 09/25/16 11:39 17:03 21:25 WBC RBC Hgb Hct MCV MCH MCHC RDW Plt Count Sodium Potassium Chloride Carbon Dioxide Anion Gap BUN Creatinine Estimated GFR BUN/Creatinine Ratio Glucose POC Glucose 300 H 273 H 127 H Calcium Total Bilirubin AST ALT Alkaline Phosphatase Total Protein Albumin Albumin/Globulin Ratio 09/26/16 09/26/16 09/26/16 04:09 04:09 07:39 WBC 9.9 RBC 4.50 Hgb 14.1 Hct 40.5 MCV 90 MCH 31 MCHC 35 H RDW 13.9 Plt Count 300 Sodium 132 L Potassium 3.5 L Chloride 91.6 L Carbon Dioxide 25 Anion Gap 19 BUN 14 Creatinine 0.9 Estimated GFR > 60 BUN/Creatinine Ratio 15.55 Glucose 81 POC Glucose 93 Calcium 9.2 Total Bilirubin 1.10 AST 18 ALT 16 Alkaline Phosphatase 63 Total Protein 7.4 Albumin 3.4 L Albumin/Globulin Ratio 0.9
--- NOTE | 2016-09-26 09:48 | Progress Note ---
Assessment and Plan Patient alert, awake . Still coughing up sputum mixed with blood. 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 Anti tuberculous medications as per ID.Patient also Has CT guided lung biopsy of right lower lobe nodule. Preliminary report is negative for malignancy or granulomatous disease. Final path report is pending - Patient Problems (1) Hemoptysis Current Visit: Yes Status: Acute Plan to address problem: Patient still coughing up sputum Sputum for AFB x1 came back positive for AFB 4+.Continue Respiratory isolation. Anti tuberculous medications as per ID. (2) Lung mass Current Visit: Yes Status: Acute Plan to address problem: Patient Has CT guided lung biopsy of right lower lobe nodule - initial path is negative for malignancy (3) Pneumonia Current Visit: Yes Status: Acute Qualifiers: Pneumonia type: due to unspecified organism Aspiration pneumonia type: A Laterality: bilateral Lung location: L Plan to address problem: Patient is on zosyn. (4) Shortness of breath Current Visit: Yes Status: Acute Plan to address problem: Shortness of breath improved. Albuterol/atrovent aerosol treatments q 6 hours. VTE prophylaxis- SCDs in view of initial presentation with hemoptysis. Plan to start pharmacologic VTE prophylaxis in the next 48 hours. Subjective Date of service: 09/26/16 Principal diagnosis: Cavitory Pneumonia (? Aspiration); Hemoptysis (R/O TB) Interval history: No new complaints. Vitals, labs, medications, chart reviewed. No overnight events. Niece at the bedside Objective - Exam Narrative Exam: Gen Appearance: Chronically ill looking, cachexia, No acute distress, coughing HEENT: normocephalic, atraumatic Neck: supple, no JVD Lungs: Bilateral rales. Heart: S1 and S2 regular, no murmurs or gallop Abdomen: Soft, non-tender, non-distended, normal bowel sounds Extremity: No edema, clubbing or cyanosis Neuro : Awake, alert, oriented x 3, moves all extremities. Psych: normal mood Vital Signs - 12hr 09/25/16 22:00 Respiratory 19 Rate [Upper Back] Constitutional: no acute distress, alert Eyes: non-icteric ENT: oropharynx moist Neck: supple, no lymphadenopathy Effort: mildly labored Ascultation: Bilateral: rales (RLL) Cardiovascular: regular rate and rhythm Gastrointestinal: normoactive bowel sounds, soft, non-tender, non-distended Integumentary: normal Extremities: no cyanosis, no edema, pulses normal, no ischemia or petechiae Neurologic: normal mental status, non-focal exam Psychiatric: mood appropriate, affect normal CBC and BMP: 09/26/16 04:09 09/26/16 04:09 ABG, PT/INR, D-dimer: PT/INR, D-dimer PT 13.4 Sec. (12.2-14.9) 09/23/16 16:56 INR 1.03 (0.87-1.13) 09/23/16 16:56 Abnormal lab findings: Abnormal Labs 09/19/16 09/19/16 09/19/16 11:59 16:44 18:06 WBC MCHC Lymph % (Auto) [place] % (Auto) Lymph # [place] # Seg Neutrophils % Seg Neuts % (Manual) Lymphocytes % (Manual) Seg Neutrophils # Man Lymphocytes # (Manual) Sodium Potassium Chloride BUN Creatinine Glucose POC Glucose 321 H 479 H > 500 H Hemoglobin A1c C-Reactive Protein Albumin TB (QFT) Gold In Tube 09/19/16 09/19/16 09/20/16 20:58 22:38 04:12 WBC 14.2 H MCHC Lymph % (Auto) [place] % (Auto) Lymph # [place] # Seg Neutrophils % Seg Neuts % (Manual) 93.0 H Lymphocytes % (Manual) 3.0 L Seg Neutrophils # Man 13.2 H Lymphocytes # (Manual) 0.4 L Sodium Potassium Chloride BUN Creatinine Glucose POC Glucose > 500 H 404 H Hemoglobin A1c C-Reactive Protein Albumin TB (QFT) Gold In Tube 09/20/16 09/20/16 09/20/16 04:12 07:37 11:41 WBC MCHC Lymph % (Auto) [place] % (Auto) Lymph # [place] # Seg Neutrophils % Seg Neuts % (Manual) Lymphocytes % (Manual) Seg Neutrophils # Man Lymphocytes # (Manual) Sodium 135 L D Potassium Chloride 97.6 L BUN 31 H Creatinine 0.7 L Glucose 354 H POC Glucose 362 H 415 H Hemoglobin A1c C-Reactive Protein Albumin TB (QFT) Gold In Tube 09/20/16 09/20/16 09/21/16 16:25 17:53 07:31 WBC MCHC Lymph % (Auto) [place] % (Auto) Lymph # [place] # Seg Neutrophils % Seg Neuts % (Manual) Lymphocytes % (Manual) Seg Neutrophils # Man Lymphocytes # (Manual) Sodium Potassium Chloride BUN Creatinine Glucose POC Glucose 313 H 139 H Hemoglobin A1c C-Reactive Protein 1.60 H Albumin TB (QFT) Gold In Tube 09/21/16 09/21/16 09/21/16 07:49 07:49 11:50 WBC MCHC Lymph % (Auto) [place] % (Auto) Lymph # [place] # Seg Neutrophils % Seg Neuts % (Manual) Lymphocytes % (Manual) Seg Neutrophils # Man Lymphocytes # (Manual) Sodium Potassium 5.2 H D Chloride BUN 28 H Creatinine Glucose 139 H POC Glucose 307 H Hemoglobin A1c 12.6 H C-Reactive Protein Albumin TB (QFT) Gold In Tube 09/21/16 09/21/16 09/22/16 17:09 21:16 00:13 WBC MCHC Lymph % (Auto) [place] % (Auto) Lymph # [place] # Seg Neutrophils % Seg Neuts % (Manual) Lymphocytes % (Manual) Seg Neutrophils # Man Lymphocytes # (Manual) Sodium Potassium Chloride BUN Creatinine Glucose POC Glucose 203 H 255 H 49 L Hemoglobin A1c C-Reactive Protein Albumin TB (QFT) Gold In Tube 09/22/16 09/22/16 09/22/16 00:31 05:25 05:25 WBC MCHC Lymph % (Auto) 12.1 L [place] % (Auto) 14.6 H Lymph # 0.8 L [place] # 1.0 H Seg Neutrophils % 71.7 H Seg Neuts % (Manual) Lymphocytes % (Manual) Seg Neutrophils # Man Lymphocytes # (Manual) Sodium Potassium Chloride BUN Creatinine Glucose 255 H POC Glucose 246 H Hemoglobin A1c C-Reactive Protein Albumin TB (QFT) Gold In Tube 09/22/16 09/22/16 09/22/16 07:51 11:29 14:36 WBC MCHC Lymph % (Auto) [place] % (Auto) Lymph # [place] # Seg Neutrophils % Seg Neuts % (Manual) Lymphocytes % (Manual) Seg Neutrophils # Man Lymphocytes # (Manual) Sodium Potassium Chloride BUN Creatinine Glucose POC Glucose 268 H 323 H Hemoglobin A1c C-Reactive Protein Albumin TB (QFT) Gold In Tube Positive H 09/22/16 09/22/16 09/23/16 16:29 20:57 03:10 WBC MCHC Lymph % (Auto) [place] % (Auto) 11.3 H Lymph # [place] # 0.9 H Seg Neutrophils % 72.0 H Seg Neuts % (Manual) Lymphocytes % (Manual) Seg Neutrophils # Man Lymphocytes # (Manual) Sodium Potassium Chloride BUN Creatinine Glucose POC Glucose 252 H 165 H Hemoglobin A1c C-Reactive Protein Albumin TB (QFT) Gold In Tube 09/23/16 09/23/16 09/23/16 03:10 07:51 11:21 WBC MCHC Lymph % (Auto) [place] % (Auto) Lymph # [place] # Seg Neutrophils % Seg Neuts % (Manual) Lymphocytes % (Manual) Seg Neutrophils # Man Lymphocytes # (Manual) Sodium 136 L Potassium Chloride 96.6 L BUN Creatinine Glucose 153 H POC Glucose 121 H 251 H Hemoglobin A1c C-Reactive Protein Albumin TB (QFT) Gold In Tube 09/23/16 09/23/16 09/24/16 16:32 21:13 07:43 WBC MCHC Lymph % (Auto) [place] % (Auto) Lymph # [place] # Seg Neutrophils % Seg Neuts % (Manual) Lymphocytes % (Manual) Seg Neutrophils # Man Lymphocytes # (Manual) Sodium Potassium Chloride BUN Creatinine Glucose POC Glucose 302 H 230 H 222 H Hemoglobin A1c C-Reactive Protein Albumin TB (QFT) Gold In Tube 09/24/16 09/24/16 09/24/16 12:12 16:44 22:10 WBC MCHC Lymph % (Auto) [place] % (Auto) Lymph # [place] # Seg Neutrophils % Seg Neuts % (Manual) Lymphocytes % (Manual) Seg Neutrophils # Man Lymphocytes # (Manual) Sodium Potassium Chloride BUN Creatinine Glucose POC Glucose 243 H 351 H 242 H Hemoglobin A1c C-Reactive Protein Albumin TB (QFT) Gold In Tube 09/25/16 09/25/16 09/25/16 07:42 11:39 17:03 WBC MCHC Lymph % (Auto) [place] % (Auto) Lymph # [place] # Seg Neutrophils % Seg Neuts % (Manual) Lymphocytes % (Manual) Seg Neutrophils # Man Lymphocytes # (Manual) Sodium Potassium Chloride BUN Creatinine Glucose POC Glucose 154 H 300 H 273 H Hemoglobin A1c C-Reactive Protein Albumin TB (QFT) Gold In Tube 09/25/16 09/26/16 09/26/16 21:25 04:09 04:09 WBC MCHC 35 H Lymph % (Auto) [place] % (Auto) Lymph # [place] # Seg Neutrophils % Seg Neuts % (Manual) Lymphocytes % (Manual) Seg Neutrophils # Man Lymphocytes # (Manual) Sodium 132 L Potassium 3.5 L Chloride 91.6 L BUN Creatinine Glucose POC Glucose 127 H Hemoglobin A1c C-Reactive Protein Albumin 3.4 L TB (QFT) Gold In Tube Additional Studies: Initial pathology report on CT guided biospy- no evidence of malignancy or granulomatous disease. Final pathology report is pending
[2016-09-26] MEDS: RIFADIN PO SCH (10:13)
[2016-09-26] MEDS: MYAMBUTOL PO SCH (10:14)
[2016-09-26] MEDS: ZESTRIL PO SCH (10:15)
[2016-09-26] MEDS: VITAMIN B-6 PO SCH (10:16)
[2016-09-26] MEDS: ISONIAZID PO SCH (10:16)
[2016-09-26] MEDS: ZOSYN/NS 4.5GM/100ML 4.5 GM/100 ML VIAL IV SCH ×3 (10:27→19:03)
[2016-09-26] MEDS: PYRAZINAMIDE PO SCH (10:27)
[2016-09-27] MEDS: DUONEB *Not for PRN Use IH SCH ×4 (02:39→20:58)
[2016-09-27 05:36] LABS: Anion Gap 19 mmol/L; Blood Urea Nitrogen 22 mg/dL (9-20); Calcium 8.9 mg/dL (8.4-10.2); Carbon Dioxide 22 mmol/L (22-30); Chloride 94.7 mmol/L (98-107); Glucose 99 mg/dL (75-100); Potassium 3.5 mmol/L (3.6-5.0); Sodium 132 mmol/L (137-145)
[2016-09-27] MEDS: VITAMIN B-6 PO SCH ×2 (08:54→10:00)
[2016-09-27] MEDS: PYRAZINAMIDE PO SCH ×2 (08:55→10:00)
[2016-09-27] MEDS: MYAMBUTOL PO SCH ×2 (08:55→10:00)
[2016-09-27] MEDS: ISONIAZID PO SCH ×2 (08:56→10:00)
[2016-09-27] MEDS: RIFADIN PO SCH ×2 (08:57→10:00)
[2016-09-27] MEDS: NOVOLOG SUB-Q SCH ×4 (08:58→22:29)
--- NOTE | 2016-09-27 09:08 | Progress Note ---
Assessment and Plan - Patient Problems (1) Tuberculosis Current Visit: Yes Status: Acute Plan to address problem: 1. Continue RIPE/B6. 2.Large burden of organisms on semi-quantitative AFB smears. The patient should remain confined, whether here or at home. 3. The [facility] department will need to be notified and involved in disposition planning, ongoing treatment, etc. Case management and region manager may assist in this process. I discussed this with the patient/ family. 4. I will continue to follow the patient's cultures and see him on an as- needed basis. Subjective Date of service: 09/27/16 Principal diagnosis: Cavitary Pneumonia/ Hemoptysis (R/O TB) Interval history: Patient is initiated on RIPE/B6 for presumptive tuberculosis. No new complaints. Objective - Constitutional Vitals: Vital Signs Temp Pulse Resp BP Pulse Ox 97.8 F 80 20 142/75 93 09/26/16 21:35 09/27/16 02:48 09/27/16 02:48 09/26/16 21:35 09/26/16 09:50 Temperature -Last 24 Hours Temperature 97.8 F Temperature 98.7 F General appearance: Present: no acute distress (multiple family members at bedside, wearing N95 masks) - EENT Eyes: no scleral icterus - Neck Neck: supple - Respiratory Respiratory effort: normal Respiratory: bilateral: CTA, negative: rales, rhonchi - Cardiovascular Rhythm: regular Heart Sounds: Present: S1 & S2 Extremities: No edema - Gastrointestinal General gastrointestinal: Present: soft, non-distended - Integumentary Integumentary: clear, no jaundice - Labs CBC & Chem 7: 09/28/16 05:17 09/28/16 05:17 Labs: Abnormal lab results 09/26/16 09/26/16 09/26/16 Range/Units 11:28 16:23 22:29 Sodium (137-145) mmol/L Potassium (3.6-5.0) mmol/L Chloride (98-107) mmol/L BUN (9-20) mg/dL POC Glucose 268 H 245 H 69 L (70-105) 09/27/16 09/27/16 Range/Units 04:10 07:30 Sodium 132 L (137-145) mmol/L Potassium 3.5 L (3.6-5.0) mmol/L Chloride 94.7 L (98-107) mmol/L BUN 22 H (9-20) mg/dL POC Glucose 121 H (70-105) Microbiology 09/23/16 Unknown Sputum - Expectorated Sputum AFB Smear Concentration - Final 09/24/16 Unknown Sputum - Expectorated Sputum AFB Smear Concentration - Final 09/20/16 20:01 Peripheral/Venous Blood Culture - Final NO GROWTH AFTER 5 DAYS 09/20/16 17:53 Peripheral/Venous Blood Culture - Final NO GROWTH AFTER 5 DAYS 09/21/16 Unknown Sputum - Expectorated Sputum AFB Smear Concentration - Final 09/22/16 Unknown Sputum - Expectorated Sputum Sputum Culture - Final 09/21/16 08:57 Serum Cryptococcal Antigen - Final 09/21/16 Unknown Sputum - Expectorated Sputum Sputum Culture - Final 09/21/16 Unknown Sputum - Expectorated Sputum Sputum Culture - Final Quantiferon - positive
--- NOTE | 2016-09-27 09:51 | Progress Note ---
Assessment and Plan Patient alert, awake . Still coughing up sputum mixed with blood. 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 Anti tuberculous medications as per ID.Patient also Has CT guided lung biopsy of right lower lobe nodule. Preliminary report is negative for malignancy or granulomatous disease. Final path report is pending - Patient Problems (1) Hemoptysis Current Visit: Yes Status: Acute Plan to address problem: Patient still coughing up sputum Sputum for AFB x1 came back positive for AFB 4+.Continue Respiratory isolation. Anti tuberculous medications as per ID. (2) Lung mass Current Visit: Yes Status: Acute Plan to address problem: Patient Has CT guided lung biopsy of right lower lobe nodule - initial path is negative for malignancy (3) Pneumonia Current Visit: Yes Status: Acute Qualifiers: Pneumonia type: due to unspecified organism Aspiration pneumonia type: A Laterality: bilateral Lung location: L Plan to address problem: Patient is on zosyn. (4) Shortness of breath Current Visit: Yes Status: Acute Plan to address problem: Shortness of breath improved. Albuterol/atrovent aerosol treatments q 6 hours. VTE prophylaxis- SCDs in view of initial presentation with hemoptysis. Start pharmacologic VTE prophylaxis Start Famotidine for GERD. Subjective Date of service: 09/27/16 Principal diagnosis: Cavitory Pneumonia (? Aspiration); Hemoptysis (R/O TB) Interval history: Has burning and indigestions. Still coughing but no hemoptysis since yesterday Vitals, labs, medications, chart reviewed. No overnight events. Niece at the bedside Objective - Exam Narrative Exam: VITAL SIGNS: Reviewed. GENERAL: The patient appearedchronically ill looking. Vital signs as documented. HEAD: No signs of head trauma. EYES: Pupils are equal. Extraocular motions intact. EARS: Hearing grossly intact. MOUTH: Oropharynx is normal. NECK: No adenopathy, no JVD. CHEST: Chest with rales sounds bilaterally. CARDIAC: Regular rate and rhythm. S1 and S2, without murmurs, gallops, or rubs. VASCULAR: No Edema. Peripheral pulses normal and equal in all extremities. ABDOMEN: Soft, without detectable tenderness. No sign of distention. No rebound or guarding, and no masses palpated. Bowel Sounds normal. MUSCULOSKELETAL: Good range of motion of all major joints. Extremities without clubbing, cyanosis or edema. NEUROLOGIC EXAM: Alert and oriented x 3. No focal sensory or strength deficits. Speech normal. Follows commands. PSYCHIATRIC: Mood normal. SKIN: No rash or lesions. Vital Signs - 12hr 09/26/16 09/27/16 09/27/16 22:00 02:37 02:48 Temperature Pulse Rate [ 77 80 Anterior Bilateral Throughout] Pulse Rate [ From Monitor] Respiratory Rate Respiratory 20 20 Rate [Anterior Bilateral Throughout] Respiratory 19 Rate [Upper Back] Blood Pressure [Right Arm] 09/27/16 09:18 Temperature 98.8 F Pulse Rate [ Anterior Bilateral Throughout] Pulse Rate [ 78 From Monitor] Respiratory 20 Rate Respiratory Rate [Anterior Bilateral Throughout] Respiratory Rate [Upper Back] Blood Pressure 110/53 [Right Arm] Constitutional: no acute distress, alert Eyes: non-icteric ENT: oropharynx moist Neck: supple, no lymphadenopathy Effort: mildly labored Ascultation: Bilateral: rales (RLL) Cardiovascular: regular rate and rhythm Gastrointestinal: normoactive bowel sounds, soft, non-tender, non-distended Integumentary: normal Extremities: no cyanosis, no edema, pulses normal, no ischemia or petechiae Neurologic: normal mental status, non-focal exam Psychiatric: mood appropriate, affect normal CBC and BMP: 09/28/16 05:17 09/28/16 05:17 ABG, PT/INR, D-dimer: PT/INR, D-dimer PT 13.4 Sec. (12.2-14.9) 09/23/16 16:56 INR 1.03 (0.87-1.13) 09/23/16 16:56 Abnormal lab findings: Abnormal Labs 09/19/16 09/19/16 09/19/16 11:59 16:44 18:06 WBC MCHC Lymph % (Auto) [place] % (Auto) Lymph # [place] # Seg Neutrophils % Seg Neuts % (Manual) Lymphocytes % (Manual) Seg Neutrophils # Man Lymphocytes # (Manual) Sodium Potassium Chloride BUN Creatinine Glucose POC Glucose 321 H 479 H > 500 H Hemoglobin A1c C-Reactive Protein Albumin TB (QFT) Gold In Tube 09/19/16 09/19/16 09/20/16 20:58 22:38 04:12 WBC 14.2 H MCHC Lymph % (Auto) [place] % (Auto) Lymph # [place] # Seg Neutrophils % Seg Neuts % (Manual) 93.0 H Lymphocytes % (Manual) 3.0 L Seg Neutrophils # Man 13.2 H Lymphocytes # (Manual) 0.4 L Sodium Potassium Chloride BUN Creatinine Glucose POC Glucose > 500 H 404 H Hemoglobin A1c C-Reactive Protein Albumin TB (QFT) Gold In Tube 09/20/16 09/20/16 09/20/16 04:12 07:37 11:41 WBC MCHC Lymph % (Auto) [place] % (Auto) Lymph # [place] # Seg Neutrophils % Seg Neuts % (Manual) Lymphocytes % (Manual) Seg Neutrophils # Man Lymphocytes # (Manual) Sodium 135 L D Potassium Chloride 97.6 L BUN 31 H Creatinine 0.7 L Glucose 354 H POC Glucose 362 H 415 H Hemoglobin A1c C-Reactive Protein Albumin TB (QFT) Gold In Tube 09/20/16 09/20/16 09/21/16 16:25 17:53 07:31 WBC MCHC Lymph % (Auto) [place] % (Auto) Lymph # [place] # Seg Neutrophils % Seg Neuts % (Manual) Lymphocytes % (Manual) Seg Neutrophils # Man Lymphocytes # (Manual) Sodium Potassium Chloride BUN Creatinine Glucose POC Glucose 313 H 139 H Hemoglobin A1c C-Reactive Protein 1.60 H Albumin TB (QFT) Gold In Tube 09/21/16 09/21/16 09/21/16 07:49 07:49 11:50 WBC MCHC Lymph % (Auto) [place] % (Auto) Lymph # [place] # Seg Neutrophils % Seg Neuts % (Manual) Lymphocytes % (Manual) Seg Neutrophils # Man Lymphocytes # (Manual) Sodium Potassium 5.2 H D Chloride BUN 28 H Creatinine Glucose 139 H POC Glucose 307 H Hemoglobin A1c 12.6 H C-Reactive Protein Albumin TB (QFT) Gold In Tube 09/21/16 09/21/16 09/22/16 17:09 21:16 00:13 WBC MCHC Lymph % (Auto) [place] % (Auto) Lymph # [place] # Seg Neutrophils % Seg Neuts % (Manual) Lymphocytes % (Manual) Seg Neutrophils # Man Lymphocytes # (Manual) Sodium Potassium Chloride BUN Creatinine Glucose POC Glucose 203 H 255 H 49 L Hemoglobin A1c C-Reactive Protein Albumin TB (QFT) Gold In Tube 09/22/16 09/22/16 09/22/16 00:31 05:25 05:25 WBC MCHC Lymph % (Auto) 12.[address] [place] % (Auto) 14.6 H Lymph # 0.[address] [place] # 1.0 H Seg Neutrophils % 71.7 H Seg Neuts % (Manual) Lymphocytes % (Manual) Seg Neutrophils # Man Lymphocytes # (Manual) Sodium Potassium Chloride BUN Creatinine Glucose 255 H POC Glucose 246 H Hemoglobin A1c C-Reactive Protein Albumin TB (QFT) Gold In Tube 09/22/16 09/22/16 09/22/16 07:51 11:29 14:36 WBC MCHC Lymph % (Auto) [place] % (Auto) Lymph # [place] # Seg Neutrophils % Seg Neuts % (Manual) Lymphocytes % (Manual) Seg Neutrophils # Man Lymphocytes # (Manual) Sodium Potassium Chloride BUN Creatinine Glucose POC Glucose 268 H 323 H Hemoglobin A1c C-Reactive Protein Albumin TB (QFT) Gold In Tube Positive H 09/22/16 09/22/16 09/23/16 16:29 20:57 03:10 WBC MCHC Lymph % (Auto) [place] % (Auto) 11.3 H Lymph # [place] # 0.9 H Seg Neutrophils % 72.0 H Seg Neuts % (Manual) Lymphocytes % (Manual) Seg Neutrophils # Man Lymphocytes # (Manual) Sodium Potassium Chloride BUN Creatinine Glucose POC Glucose 252 H 165 H Hemoglobin A1c C-Reactive Protein Albumin TB (QFT) Gold In Tube 09/23/16 09/23/16 09/23/16 03:10 07:51 11:21 WBC MCHC Lymph % (Auto) [place] % (Auto) Lymph # [place] # Seg Neutrophils % Seg Neuts % (Manual) Lymphocytes % (Manual) Seg Neutrophils # Man Lymphocytes # (Manual) Sodium 136 L Potassium Chloride 96.6 L BUN Creatinine Glucose 153 H POC Glucose 121 H 251 H Hemoglobin A1c C-Reactive Protein Albumin TB (QFT) Gold In Tube 09/23/16 09/23/16 09/24/16 16:32 21:13 07:43 WBC MCHC Lymph % (Auto) [place] % (Auto) Lymph # [place] # Seg Neutrophils % Seg Neuts % (Manual) Lymphocytes % (Manual) Seg Neutrophils # Man Lymphocytes # (Manual) Sodium Potassium Chloride BUN Creatinine Glucose POC Glucose 302 H 230 H 222 H Hemoglobin A1c C-Reactive Protein Albumin TB (QFT) Gold In Tube 09/24/16 09/24/16 09/24/16 12:12 16:44 22:10 WBC MCHC Lymph % (Auto) [place] % (Auto) Lymph # [place] # Seg Neutrophils % Seg Neuts % (Manual) Lymphocytes % (Manual) Seg Neutrophils # Man Lymphocytes # (Manual) Sodium Potassium Chloride BUN Creatinine Glucose POC Glucose 243 H 351 H 242 H Hemoglobin A1c C-Reactive Protein Albumin TB (QFT) Gold In Tube 09/25/16 09/25/16 09/25/16 07:42 11:39 17:03 WBC MCHC Lymph % (Auto) [place] % (Auto) Lymph # [place] # Seg Neutrophils % Seg Neuts % (Manual) Lymphocytes % (Manual) Seg Neutrophils # Man Lymphocytes # (Manual) Sodium Potassium Chloride BUN Creatinine Glucose POC Glucose 154 H 300 H 273 H Hemoglobin A1c C-Reactive Protein Albumin TB (QFT) Gold In Tube 09/25/16 09/26/16 09/26/16 21:25 04:09 04:09 WBC MCHC 35 H Lymph % (Auto) [place] % (Auto) Lymph # [place] # Seg Neutrophils % Seg Neuts % (Manual) Lymphocytes % (Manual) Seg Neutrophils # Man Lymphocytes # (Manual) Sodium 132 L Potassium 3.5 L Chloride 91.6 L BUN Creatinine Glucose POC Glucose 127 H Hemoglobin A1c C-Reactive Protein Albumin 3.4 L TB (QFT) Gold In Tube 09/26/16 09/26/16 09/26/16 11:28 16:23 22:29 WBC MCHC Lymph % (Auto) [place] % (Auto) Lymph # [place] # Seg Neutrophils % Seg Neuts % (Manual) Lymphocytes % (Manual) Seg Neutrophils # Man Lymphocytes # (Manual) Sodium Potassium Chloride BUN Creatinine Glucose POC Glucose 268 H 245 H 69 L Hemoglobin A1c C-Reactive Protein Albumin TB (QFT) Gold In Tube 09/27/16 09/27/16 04:10 07:30 WBC MCHC Lymph % (Auto) [place] % (Auto) Lymph # [place] # Seg Neutrophils % Seg Neuts % (Manual) Lymphocytes % (Manual) Seg Neutrophils # Man Lymphocytes # (Manual) Sodium 132 L Potassium 3.5 L Chloride 94.7 L BUN 22 H Creatinine Glucose POC Glucose 121 H Hemoglobin A1c C-Reactive Protein Albumin TB (QFT) Gold In Tube
[2016-09-27] MEDS: ZESTRIL PO SCH (10:00)
--- NOTE | 2016-09-27 10:03 | Progress Note ---
Assessment and Plan Assessment and plan: Pulmonary tuberculosis. Patient was admitted for chronic cough, hemoptysis CT showed multiple cavitary mass lesions. Lung biopsy done. Sputum for AFB X 3, received. One set positive for AFB, presumed pulmonary tuberculosis Pulmonary and hematology/ oncology following. Started on anti -TB meds by ID Physician yesterday with RIPE regimen. Discussed with ID Physician Hememoptysis due to TB Leukocytosis resolved Diabetes mellitus type 2. Continue fingerstick glucose before every meal and at bedtime - Blood glucose uncontrolled. Increased Novolin 70/30 to 18 Units subcut bid Hyponatremia,improved. Na 132 from 122 on admission. Hypokalemia. Replace orally and recheck in am. Malnutrition DVT prophylaxis with SCDs only. No anticoag because of hemoptysis. Disposition: Continue inpatient care. History Interval history: Still coughing bloody sputum, no more fever Hospitalist Physical - Physical exam Narrative exam: Gen Appearance: No acute distress, HEENT: normocephalic, atraumatic Neck: supple, no JVD Lungs: Bilateral rales. Heart: S1 and S2 regular, no murmurs or gallop Abdomen: Soft, non-tender, non-distended, normal bowel sounds Extremity: No edema, clubbing or cyanosis Neuro : Awake, alert, oriented x 3, moves all extremities. Psych: normal mood - Constitutional Vitals: Temp Pulse Resp BP Pulse Ox 98.8 F 78 20 110/53 93 09/27/16 09:18 09/27/16 09:18 09/27/16 09:18 09/27/16 09:18 09/26/16 09:50 General appearance: Present: no acute distress Results - Labs CBC & Chem 7: 09/26/16 04:09 09/27/16 04:10 Labs: Laboratory Last Values WBC 9.9 K/mm3 (4.5-11.0) 09/26/16 04:09 RBC 4.50 M/mm3 (3.65-5.03) 09/26/16 04:09 Hgb 14.1 gm/dl (11.8-15.2) 09/26/16 04:09 Hct 40.5 % (35.5-45.6) 09/26/16 04:09 MCV 90 fl (84-94) 09/26/16 04:09 MCH 31 pg (28-32) 09/26/16 04:09 MCHC 35 % (32-34) H 09/26/16 04:09 RDW 13.9 % (13.2-15.2) 09/26/16 04:09 Plt Count 300 K/mm3 (140-440) 09/26/16 04:09 Lymph % (Auto) 14.2 % (13.4-35.0) 09/23/16 03:10 [place] % (Auto) 11.3 % (0.0-7.3) H 09/23/16 03:10 Eos % (Auto) 2.0 % (0.0-4.3) 09/23/16 03:10 Baso % (Auto) 0.5 % (0.0-1.8) 09/23/16 03:10 Lymph # 1.2 K/mm3 (1.2-5.4) 09/23/16 03:10 [place] # 0.9 K/mm3 (0.0-0.8) H 09/23/16 03:10 Eos # 0.2 K/mm3 (0.0-0.4) 09/23/16 03:10 Baso # 0.0 K/mm3 (0.0-0.1) 09/23/16 03:10 Add Manual Diff Complete 09/20/16 04:12 Total Counted 100 09/20/16 04:12 Seg Neutrophils % 72.0 % (40.0-70.0) H 09/23/16 03:10 Seg Neuts % (Manual) 93.0 % (40.0-70.0) H 09/20/16 04:12 Band Neutrophils % 0 % 09/20/16 04:12 Lymphocytes % (Manual) 3.0 % (13.4-35.0) L 09/20/16 04:12 Reactive Lymphs % (Man) 0 % 09/20/16 04:12 Monocytes % (Manual) 4.0 % (0.0-7.3) 09/20/16 04:12 Eosinophils % (Manual) 0 % (0.0-4.3) 09/20/16 04:12 Basophils % (Manual) 0 % (0.0-1.8) 09/20/16 04:12 Metamyelocytes % 0 % 09/20/16 04:12 Myelocytes % 0 % 09/20/16 04:12 Promyelocytes % 0 % 09/20/16 04:12 Blast Cells % 0 % 09/20/16 04:12 Nucleated RBC % Not Reportable 09/20/16 04:12 Seg Neutrophils # 6.0 K/mm3 (1.8-7.7) 09/23/16 03:10 Seg Neutrophils # Man 13.2 K/mm3 (1.8-7.7) H 09/20/16 04:12 Band Neutrophils # 0.0 K/mm3 09/20/16 04:12 Lymphocytes # (Manual) 0.4 K/mm3 (1.2-5.4) L 09/20/16 04:12 Abs React Lymphs (Man) 0.0 K/mm3 09/20/16 04:12 Monocytes # (Manual) 0.6 K/mm3 (0.0-0.8) 09/20/16 04:12 Eosinophils # (Manual) 0.0 K/mm3 (0.0-0.4) 09/20/16 04:12 Basophils # (Manual) 0.0 K/mm3 (0.0-0.1) 09/20/16 04:12 Metamyelocytes # 0.0 K/mm3 09/20/16 04:12 Myelocytes # 0.0 K/mm3 09/20/16 04:12 Promyelocytes # 0.0 K/mm3 09/20/16 04:12 Blast Cells # 0.0 K/mm3 09/20/16 04:12 WBC Morphology Not Reportable 09/20/16 04:12 Hypersegmented Neuts Not Reportable 09/20/16 04:12 Hyposegmented Neuts Not Reportable 09/20/16 04:12 Hypogranular Neuts Not Reportable 09/20/16 04:12 Smudge Cells Not Reportable 09/20/16 04:12 Toxic Granulation Not Reportable 09/20/16 04:12 Toxic Vacuolation Not Reportable 09/20/16 04:12 Dohle Bodies Not Reportable 09/20/16 04:12 Pelger-Huet Anomaly Not Reportable 09/20/16 04:12 Lalit Rods Not Reportable 09/20/16 04:12 Platelet Estimate Appears normal 09/20/16 04:12 Clumped Platelets Not Reportable 09/20/16 04:12 Plt Clumps, EDTA Not Reportable 09/20/16 04:12 Large Platelets Not Reportable 09/20/16 04:12 Giant Platelets Not Reportable 09/20/16 04:12 Platelet Satelliting Not Reportable 09/20/16 04:12 Plt Morphology Comment Not Reportable 09/20/16 04:12 RBC Morphology Normal 09/20/16 04:12 Dimorphic RBCs Not Reportable 09/20/16 04:12 Polychromasia Not Reportable 09/20/16 04:12 Hypochromasia Not Reportable 09/20/16 04:12 Poikilocytosis Not Reportable 09/20/16 04:12 Anisocytosis Not Reportable 09/20/16 04:12 Microcytosis Not Reportable 09/20/16 04:12 Macrocytosis Not Reportable 09/20/16 04:12 Spherocytes Not Reportable 09/20/16 04:12 Pappenheimer Bodies Not Reportable 09/20/16 04:12 Sickle Cells Not Reportable 09/20/16 04:12 Target Cells Not Reportable 09/20/16 04:12 Tear Drop Cells Not Reportable 09/20/16 04:12 Ovalocytes Not Reportable 09/20/16 04:12 Helmet Cells Not Reportable 09/20/16 04:12 [place] Bodies Not Reportable 09/20/16 04:12 [place] Rings Not Reportable 09/20/16 04:12 [place] Cells Not Reportable 09/20/16 04:12 Bite Cells Not Reportable 09/20/16 04:12 Crenated Cell Not Reportable 09/20/16 04:12 Elliptocytes Not Reportable 09/20/16 04:12 Acanthocytes (Spur) Not Reportable 09/20/16 04:12 Rouleaux Not Reportable 09/20/16 04:12 Hemoglobin C Crystals Not Reportable 09/20/16 04:12 Schistocytes Not Reportable 09/20/16 04:12 Malaria parasites Not Reportable 09/20/16 04:12 [place] Bodies Not Reportable 09/20/16 04:12 Hem Pathologist Commnt No 09/20/16 04:12 PT 13.4 Sec. (12.2-14.9) 09/23/16 16:56 INR 1.03 (0.87-1.13) 09/23/16 16:56 VBG pH 7.500 (7.320-7.420) H 09/19/16 03:04 Sodium 132 mmol/L (137-145) L 09/27/16 04:10 Potassium 3.5 mmol/L (3.6-5.0) L 09/27/16 04:10 Chloride 94.7 mmol/L (98-107) L 09/27/16 04:10 Carbon Dioxide 22 mmol/L (22-30) 09/27/16 04:10 Anion Gap 19 mmol/L 09/27/16 04:10 BUN 22 mg/dL (9-20) H 09/27/16 04:10 Creatinine 1.0 mg/dL (0.8-1.5) 09/27/16 04:10 Estimated GFR > 60 ml/min 09/27/16 04:10 BUN/Creatinine Ratio 22.00 % 09/27/16 04:10 Glucose 99 mg/dL (75-100) 09/27/16 04:10 POC Glucose 121 (70-105) H 09/27/16 07:30 Hemoglobin A1c 12.6 % (4-6) H 09/21/16 07:49 Calcium 8.9 mg/dL (8.4-10.2) 09/27/16 04:10 Total Bilirubin 1.10 mg/dL (0.1-1.2) 09/26/16 04:09 AST 18 units/L (5-40) 09/26/16 04:09 ALT 16 units/L (7-56) 09/26/16 04:09 Alkaline Phosphatase 63 units/L (35-129) 09/26/16 04:09 Troponin T < 0.010 ng/mL (0.00-0.029) 09/19/16 07:03 C-Reactive Protein 1.60 mg/dL (0.00-1.30) H 09/20/16 17:53 NT-Pro-B Natriuret Pep 280.0 pg/mL (0-900) 09/19/16 07:03 Total Protein 7.4 g/dL (6.3-8.2) 09/26/16 04:09 Albumin 3.4 g/dL (3.9-5) L 09/26/16 04:09 Albumin/Globulin Ratio 0.9 % 09/26/16 04:09 Urine Color Straw (Yellow) 09/19/16 Unknown Urine Turbidity Clear (Clear) 09/19/16 Unknown Urine pH 5.0 (5.0-7.0) 09/19/16 Unknown Ur Specific [place] 1.030 (1.003-1.030) 09/19/16 Unknown Urine Protein <15 mg/dl mg/dL (Negative) 09/19/16 Unknown Urine Glucose (UA) >=500 mg/dL (Negative) 09/19/16 Unknown Urine Ketones 20 mg/dL (Negative) 09/19/16 Unknown Urine Blood Neg (Negative) 09/19/16 Unknown Urine Nitrite Neg (Negative) 09/19/16 Unknown Urine Bilirubin Neg (Negative) 09/19/16 Unknown Urine Urobilinogen < 2.0 mg/dL (<2.0) 09/19/16 Unknown Ur Leukocyte Esterase Neg (Negative) 09/19/16 Unknown Urine WBC (Auto) 0.0 /HPF (0.0-6.0) 09/19/16 Unknown Urine RBC (Auto) 1.0 /HPF (0.0-6.0) 09/19/16 Unknown Urine Mucus Few /HPF 09/19/16 Unknown Proteinase 3 (PR3) Ab <1.0 AI (<1.0) 09/21/16 09:18 Myeloperoxidase Ab <1.0 AI (<1.0) 09/21/16 09:18 HIV 1&2 Antibody Rapid Non react (Non React) 09/21/16 09:18 HIV P24 Antigen Non react (Non React) 09/21/16 09:18 TB (QFT) Gold In Tube Positive (Negative) H 09/22/16 14:36 TB Test (QFT) Nil 3.81 IU/mL 09/22/16 14:36 TB Test Mitogen - Nil 5.89 IU/mL 09/22/16 14:36 TB Test Antigen - Nil 5.89 IU/mL 09/22/16 14:36
[2016-09-27] MEDS: K-DUR PO SCH ×2 (11:45→16:55)
[2016-09-27] MEDS: ZOSYN/NS 4.5GM/100ML 4.5 GM/100 ML VIAL IV SCH ×2 (14:11→22:29)
[2016-09-27] MEDS: PEPCID PO SCH (22:30)
[2016-09-28] MEDS: DUONEB *Not for PRN Use IH SCH ×4 (02:09→21:09)
[2016-09-28] MEDS: ZOSYN/NS 4.5GM/100ML 4.5 GM/100 ML VIAL IV SCH ×3 (04:38→22:17)
[2016-09-28 05:28] LABS: Hematocrit 35.6 % (35.5-45.6); Hemoglobin 11.9 gm/dl (11.8-15.2); Mean Corpuscular HGB Conc 33 % (32-34); Mean Corpuscular Hemoglobin 31 pg (28-32); Mean Corpuscular Volume 94 fl (84-94); Platelet Count 279 K/mm3 (140-440); Red Blood Count 3.81 M/mm3 (3.65-5.03); Red Cell Distribution Width 14.3 % (13.2-15.2); White Blood Count 5.1 K/mm3 (4.5-11.0)
[2016-09-28 06:10] LABS: Albumin 2.8 g/dL (3.9-5); Albumin/Globulin Ratio 0.8 %; Alkaline Phosphatase 64 units/L (35-129); BUN/Creatinine Ratio 21.42; Blood Urea Nitrogen 15 mg/dL (9-20); Calcium 8.4 mg/dL (8.4-10.2); Chloride 94.4 mmol/L (98-107); Glucose 192 mg/dL (75-100); Sodium 126 mmol/L (137-145); Total Protein 6.5 g/dL (6.3-8.2)
[2016-09-28 06:16] LABS: Alanine Aminotransferase 12 units/L (7-56); Anion Gap 22 mmol/L; Carbon Dioxide 14 mmol/L (22-30)
[2016-09-28 06:17] LABS: Potassium 4.4 mmol/L (3.6-5.0)
[2016-09-28] MEDS: PEPCID PO SCH ×2 (09:18→22:19)
[2016-09-28] MEDS: RIFADIN PO SCH (09:19)
[2016-09-28] MEDS: NOVOLOG SUB-Q SCH ×4 (09:20→22:18)
[2016-09-28] MEDS: VITAMIN B-6 PO SCH (09:20)
[2016-09-28] MEDS: PYRAZINAMIDE PO SCH (09:21)
[2016-09-28] MEDS: MYAMBUTOL PO SCH (09:21)
[2016-09-28] MEDS: ISONIAZID PO SCH (09:22)
[2016-09-28] MEDS: ZESTRIL PO SCH (09:25)
--- NOTE | 2016-09-28 11:04 | Progress Note ---
Assessment and Plan Assessment and plan: Patient is a 65 year old Arabic male with past medical history of diabetes mellitus and hypertension presenting with 3 weeks of worsening dyspnea on light exertion, chest pain, cough, and a 10 lb weight loss in 8 days. 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 Patient Just over 6 months ago the patient was at his normal baseline state of health. Now he has had progressive worsening of his dyspnea on exertion (RIOS) to where he cannot walk across a room or talk while sitting up without becoming short of breath; he has never had anything like this before. Additionally, he has a productive cough with bloody mucus, and often coughs so hard that he ends up with a lot of blood mucus secretions. He has had no fevers, chills, or night sweats. He has no allergies, seasonal or otherwise, and no hx of breathing troubles/asthma. no dyspnea at rest (as long as he is lying down), no orthopnea, and no paroxysmal nocturnal dyspnea. No hx of recurrent pneumonia. He has no sick contact, TB exposure (that he knows of ie incarcerated, homeless). He also has no pets, has not been around any farm animals, and has not traveled recently or been around those who have. * Pulmonary tuberculosis. Patient was admitted for chronic cough, hemoptysis CT showed multiple cavitary mass lesions. Lung biopsy done. Pulmonary and ID following, Sputum for AFB X 3, received. One set positive for AFB, presumed pulmonary tuberculosis WITH High quantity, STARTED ON RIPE REGIMEN. VALERY on discharge planning * Hememoptysis due to TB * Leukocytosis resolved * Diabetes mellitus type 2. Continue fingerstick glucose before every meal and at bedtime * Blood glucose uncontrolled. Increased Novolin 70/30 to 18 Units subcut bid * Hyponatremia, hypovoluemia- continue ivf and monitor. * Hypokalemia. Replace orally and recheck in am. * Malnutrition- Nutrition * DVT prophylaxis with SCDs only. No anticoag because of hemoptysis. History Interval history: Patient is examined this morning still with cough although with no other hemoptysis noted. Denies any diaphoresis at this time. Hospitalist Physical - Physical exam Narrative exam: VITAL SIGNS: Reviewed. GENERAL: The patient appeared well nourished and normally developed. Vital signs as documented. HEAD: No signs of head trauma. EYES: Pupils are equal. Extraocular motions intact. EARS: Hearing grossly intact. MOUTH: Oropharynx is normal. NECK: No adenopathy, no JVD. CHEST: Chest with rales sounds bilaterally. CARDIAC: Regular rate and rhythm. S1 and S2, without murmurs, gallops, or rubs. VASCULAR: No Edema. Peripheral pulses normal and equal in all extremities. ABDOMEN: Soft, without detectable tenderness. No sign of distention. No rebound or guarding, and no masses palpated. Bowel Sounds normal. MUSCULOSKELETAL: Good range of motion of all major joints. Extremities without clubbing, cyanosis or edema. NEUROLOGIC EXAM: Alert and oriented x 3. No focal sensory or strength deficits. Speech normal. Follows commands. PSYCHIATRIC: Mood normal. SKIN: No rash or lesions. - Constitutional Vitals: Temp Pulse Resp BP Pulse Ox 98.2 F 67 20 120/56 99 09/28/16 10:00 09/28/16 10:00 09/28/16 10:00 09/28/16 10:00 09/27/16 22:00 General appearance: Present: no acute distress (multiple family members at bedside, wearing N95 masks) Results - Labs CBC & Chem 7: 09/28/16 05:17 09/28/16 05:17 Labs: Laboratory Last Values WBC 5.1 K/mm3 (4.5-11.0) 09/28/16 05:17 RBC 3.81 M/mm3 (3.65-5.03) 09/28/16 05:17 Hgb 11.9 gm/dl (11.8-15.2) 09/28/16 05:17 Hct 35.6 % (35.5-45.6) 09/28/16 05:17 MCV 94 fl (84-94) D 09/28/16 05:17 MCH 31 pg (28-32) 09/28/16 05:17 MCHC 33 % (32-34) 09/28/16 05:17 RDW 14.3 % (13.2-15.2) 09/28/16 05:17 Plt Count 279 K/mm3 (140-440) 09/28/16 05:17 Lymph % (Auto) 14.2 % (13.4-35.0) 09/23/16 03:10 [place] % (Auto) 11.3 % (0.0-7.3) H 09/23/16 03:10 Eos % (Auto) 2.0 % (0.0-4.3) 09/23/16 03:10 Baso % (Auto) 0.5 % (0.0-1.8) 09/23/16 03:10 Lymph # 1.2 K/mm3 (1.2-5.4) 09/23/16 03:10 [place] # 0.9 K/mm3 (0.0-0.8) H 09/23/16 03:10 Eos # 0.2 K/mm3 (0.0-0.4) 09/23/16 03:10 Baso # 0.0 K/mm3 (0.0-0.1) 09/23/16 03:10 Add Manual Diff Complete 09/20/16 04:12 Total Counted 100 09/20/16 04:12 Seg Neutrophils % 72.0 % (40.0-70.0) H 09/23/16 03:10 Seg Neuts % (Manual) 93.0 % (40.0-70.0) H 09/20/16 04:12 Band Neutrophils % 0 % 09/20/16 04:12 Lymphocytes % (Manual) 3.0 % (13.4-35.0) L 09/20/16 04:12 Reactive Lymphs % (Man) 0 % 09/20/16 04:12 Monocytes % (Manual) 4.0 % (0.0-7.3) 09/20/16 04:12 Eosinophils % (Manual) 0 % (0.0-4.3) 09/20/16 04:12 Basophils % (Manual) 0 % (0.0-1.8) 09/20/16 04:12 Metamyelocytes % 0 % 09/20/16 04:12 Myelocytes % 0 % 09/20/16 04:12 Promyelocytes % 0 % 09/20/16 04:12 Blast Cells % 0 % 09/20/16 04:12 Nucleated RBC % Not Reportable 09/20/16 04:12 Seg Neutrophils # 6.0 K/mm3 (1.8-7.7) 09/23/16 03:10 Seg Neutrophils # Man 13.2 K/mm3 (1.8-7.7) H 09/20/16 04:12 Band Neutrophils # 0.0 K/mm3 09/20/16 04:12 Abs Lymphs (Manual) 700 cells/uL (850-3900) L 09/20/16 17:53 Lymphocytes # (Manual) 0.4 K/mm3 (1.2-5.4) L 09/20/16 04:12 Abs React Lymphs (Man) 0.0 K/mm3 09/20/16 04:12 Monocytes # (Manual) 0.6 K/mm3 (0.0-0.8) 09/20/16 04:12 Eosinophils # (Manual) 0.0 K/mm3 (0.0-0.4) 09/20/16 04:12 Basophils # (Manual) 0.0 K/mm3 (0.0-0.1) 09/20/16 04:12 Metamyelocytes # 0.0 K/mm3 09/20/16 04:12 Myelocytes # 0.0 K/mm3 09/20/16 04:12 Promyelocytes # 0.0 K/mm3 09/20/16 04:12 Blast Cells # 0.0 K/mm3 09/20/16 04:12 WBC Morphology Not Reportable 09/20/16 04:12 Hypersegmented Neuts Not Reportable 09/20/16 04:12 Hyposegmented Neuts Not Reportable 09/20/16 04:12 Hypogranular Neuts Not Reportable 09/20/16 04:12 Smudge Cells Not Reportable 09/20/16 04:12 Toxic Granulation Not Reportable 09/20/16 04:12 Toxic Vacuolation Not Reportable 09/20/16 04:12 Dohle Bodies Not Reportable 09/20/16 04:12 Pelger-Huet Anomaly Not Reportable 09/20/16 04:12 Lalit Rods Not Reportable 09/20/16 04:12 Platelet Estimate Appears normal 09/20/16 04:12 Clumped Platelets Not Reportable 09/20/16 04:12 Plt Clumps, EDTA Not Reportable 09/20/16 04:12 Large Platelets Not Reportable 09/20/16 04:12 Giant Platelets Not Reportable 09/20/16 04:12 Platelet Satelliting Not Reportable 09/20/16 04:12 Plt Morphology Comment Not Reportable 09/20/16 04:12 RBC Morphology Normal 09/20/16 04:12 Dimorphic RBCs Not Reportable 09/20/16 04:12 Polychromasia Not Reportable 09/20/16 04:12 Hypochromasia Not Reportable 09/20/16 04:12 Poikilocytosis Not Reportable 09/20/16 04:12 Anisocytosis Not Reportable 09/20/16 04:12 Microcytosis Not Reportable 09/20/16 04:12 Macrocytosis Not Reportable 09/20/16 04:12 Spherocytes Not Reportable 09/20/16 04:12 Pappenheimer Bodies Not Reportable 09/20/16 04:12 Sickle Cells Not Reportable 09/20/16 04:12 Target Cells Not Reportable 09/20/16 04:12 Tear Drop Cells Not Reportable 09/20/16 04:12 Ovalocytes Not Reportable 09/20/16 04:12 Helmet Cells Not Reportable 09/20/16 04:12 [place] Bodies Not Reportable 09/20/16 04:12 [place] Rings Not Reportable 09/20/16 04:12 [place] Cells Not Reportable 09/20/16 04:12 Bite Cells Not Reportable 09/20/16 04:12 Crenated Cell Not Reportable 09/20/16 04:12 Elliptocytes Not Reportable 09/20/16 04:12 Acanthocytes (Spur) Not Reportable 09/20/16 04:12 Rouleaux Not Reportable 09/20/16 04:12 Hemoglobin C Crystals Not Reportable 09/20/16 04:12 Schistocytes Not Reportable 09/20/16 04:12 Malaria parasites Not Reportable 09/20/16 04:12 [place] Bodies Not Reportable 09/20/16 04:12 Hem Pathologist Commnt No 09/20/16 04:12 PT 13.4 Sec. (12.2-14.9) 09/23/16 16:56 INR 1.03 (0.87-1.13) 09/23/16 16:56 VBG pH 7.500 (7.320-7.420) H 09/19/16 03:04 Sodium 126 mmol/L (137-145) L 09/28/16 05:17 Potassium 4.4 mmol/L (3.6-5.0) D 09/28/16 05:17 Chloride 94.4 mmol/L (98-107) L 09/28/16 05:17 Carbon Dioxide 14 mmol/L (22-30) L D 09/28/16 05:17 Anion Gap 22 mmol/L 09/28/16 05:17 BUN 15 mg/dL (9-20) 09/28/16 05:17 Creatinine 0.7 mg/dL (0.8-1.5) L 09/28/16 05:17 Estimated GFR > 60 ml/min 09/28/16 05:17 BUN/Creatinine Ratio 21.42 % 09/28/16 05:17 Glucose 192 mg/dL (75-100) H 09/28/16 05:17 POC Glucose 164 (70-105) H 09/28/16 07:45 Hemoglobin A1c 12.6 % (4-6) H 09/21/16 07:49 Calcium 8.4 mg/dL (8.4-10.2) 09/28/16 05:17 Total Bilirubin 0.60 mg/dL (0.1-1.2) 09/28/16 05:17 AST 18 units/L (5-40) 09/28/16 05:17 ALT 12 units/L (7-56) 09/28/16 05:17 Alkaline Phosphatase 64 units/L (35-129) 09/28/16 05:17 Troponin T < 0.010 ng/mL (0.00-0.029) 09/19/16 07:03 C-Reactive Protein 1.60 mg/dL (0.00-1.30) H 09/20/16 17:53 NT-Pro-B Natriuret Pep 280.0 pg/mL (0-900) 09/19/16 07:03 Total Protein 6.5 g/dL (6.3-8.2) 09/28/16 05:17 Albumin 2.8 g/dL (3.9-5) L 09/28/16 05:17 Albumin/Globulin Ratio 0.8 % 09/28/16 05:17 Urine Color Straw (Yellow) 09/19/16 Unknown Urine Turbidity Clear (Clear) 09/19/16 Unknown Urine pH 5.0 (5.0-7.0) 09/19/16 Unknown Ur Specific [place] 1.030 (1.003-1.030) 09/19/16 Unknown Urine Protein <15 mg/dl mg/dL (Negative) 09/19/16 Unknown Urine Glucose (UA) >=500 mg/dL (Negative) 09/19/16 Unknown Urine Ketones 20 mg/dL (Negative) 09/19/16 Unknown Urine Blood Neg (Negative) 09/19/16 Unknown Urine Nitrite Neg (Negative) 09/19/16 Unknown Urine Bilirubin Neg (Negative) 09/19/16 Unknown Urine Urobilinogen < 2.0 mg/dL (<2.0) 09/19/16 Unknown Ur Leukocyte Esterase Neg (Negative) 09/19/16 Unknown Urine WBC (Auto) 0.0 /HPF (0.0-6.0) 09/19/16 Unknown Urine RBC (Auto) 1.0 /HPF (0.0-6.0) 09/19/16 Unknown Urine Mucus Few /HPF 09/19/16 Unknown Proteinase 3 (PR3) Ab <1.0 AI (<1.0) 09/21/16 09:18 Myeloperoxidase Ab <1.0 AI (<1.0) 09/21/16 09:18 Lymph Enumerat CD4/CD8 1.17 (0.86-5.00) 09/20/16 17:53 % CD3 Cells 68 % (57-85) 09/20/16 17:53 Absolute CD3 Count 479 cells/uL (840-3060) L 09/20/16 17:53 % CD4 Cells 37 % (30-61) 09/20/16 17:53 Absolute CD4 Count 264 cells/uL (490-1740) L 09/20/16 17:53 % CD8 Cells 32 % (12-42) 09/20/16 17:53 Absolute CD8 Count 226 cells/uL (180-1170) 09/20/16 17:53 % CD19 Cells 16 % (6-29) 09/20/16 17:53 Absolute CD19 Count 113 cells/uL (110-660) 09/20/16 17:53 HIV 1&2 Antibody Rapid Non react (Non React) 09/21/16 09:18 HIV P24 Antigen Non react (Non React) 09/21/16 09:18 TB (QFT) Gold In Tube Positive (Negative) H 09/22/16 14:36 TB Test (QFT) Nil 3.81 IU/mL 09/22/16 14:36 TB Test Mitogen - Nil 5.89 IU/mL 09/22/16 14:36 TB Test Antigen - Nil 5.89 IU/mL 09/22/16 14:36
--- NOTE | 2016-09-28 16:19 | Progress Note ---
Assessment and Plan Patient alert, awake . Still coughing up sputum , no blood Sputum for AFB x1 came back positive for AFB 4+.Continue Respiratory isolation. Anti tuberculous medications as per ID.Patient also Has CT guided lung biopsy of right lower lobe nodule. Preliminary report is negative for malignancy or granulomatous disease. Final path report is pending - Patient Problems (1) Hemoptysis Current Visit: Yes Status: Acute Plan to address problem: Patient still coughing up sputum, no blood Sputum for AFB x1 came back positive for AFB 4+.Continue Respiratory isolation. Anti tuberculous medications as per ID. (2) Lung mass Current Visit: Yes Status: Acute Plan to address problem: Patient Has CT guided lung biopsy of right lower lobe nodule - initial path is negative for malignancy (3) Pneumonia Current Visit: Yes Status: Acute Qualifiers: Pneumonia type: due to unspecified organism Aspiration pneumonia type: A Laterality: bilateral Lung location: L Plan to address problem: Patient is on zosyn. (4) Shortness of breath Current Visit: Yes Status: Acute Plan to address problem: Shortness of breath improved. Albuterol/atrovent aerosol treatments q 6 hours. Start pharmacologic VTE prophylaxis Famotidine for GERD. Subjective Date of service: 09/28/16 Principal diagnosis: Cavitory Pneumonia (? Aspiration); Hemoptysis (R/O TB) Interval history: Has burning and indigestions. Still coughing but no hemoptysis Vitals, labs, medications, chart reviewed. No overnight events. Niece at the bedside Objective - Exam Narrative Exam: VITAL SIGNS: Reviewed. GENERAL: The patient appearedchronically ill looking. Vital signs as documented. HEAD: No signs of head trauma. EYES: Pupils are equal. Extraocular motions intact. EARS: Hearing grossly intact. MOUTH: Oropharynx is normal. NECK: No adenopathy, no JVD. CHEST: Chest with rales sounds bilaterally. CARDIAC: Regular rate and rhythm. S1 and S2, without murmurs, gallops, or rubs. VASCULAR: No Edema. Peripheral pulses normal and equal in all extremities. ABDOMEN: Soft, without detectable tenderness. No sign of distention. No rebound or guarding, and no masses palpated. Bowel Sounds normal. MUSCULOSKELETAL: Good range of motion of all major joints. Extremities without clubbing, cyanosis or edema. NEUROLOGIC EXAM: Alert and oriented x 3. No focal sensory or strength deficits. Speech normal. Follows commands. PSYCHIATRIC: Mood normal. SKIN: No rash or lesions. Vital Signs - 12hr 09/28/16 09/28/16 09/28/16 08:26 08:33 09:25 Temperature Pulse Rate 94 H Pulse Rate [ 67 69 Anterior Bilateral Throughout] Pulse Rate [ From Monitor] Respiratory Rate Respiratory 16 16 Rate [Anterior Bilateral Throughout] Blood Pressure 143/73 Blood Pressure [Right Arm] 09/28/16 09/28/16 09/28/16 10:00 14:07 14:18 Temperature 98.2 F Pulse Rate Pulse Rate [ 69 70 Anterior Bilateral Throughout] Pulse Rate [ 67 From Monitor] Respiratory 20 Rate Respiratory 16 16 Rate [Anterior Bilateral Throughout] Blood Pressure Blood Pressure 120/56 [Right Arm] Constitutional: no acute distress, alert Eyes: non-icteric ENT: oropharynx moist Neck: supple, no lymphadenopathy Effort: mildly labored Ascultation: Bilateral: rales (RLL) Cardiovascular: regular rate and rhythm Gastrointestinal: normoactive bowel sounds, soft, non-tender, non-distended Integumentary: normal Extremities: no cyanosis, no edema, pulses normal, no ischemia or petechiae Neurologic: normal mental status, non-focal exam Psychiatric: mood appropriate, affect normal CBC and BMP: 09/28/16 05:17 09/28/16 05:17 ABG, PT/INR, D-dimer: PT/INR, D-dimer PT 13.4 Sec. (12.2-14.9) 09/23/16 16:56 INR 1.03 (0.87-1.13) 09/23/16 16:56 Abnormal lab findings: Abnormal Labs 09/19/16 09/19/16 09/19/16 11:59 16:44 18:06 WBC MCHC Lymph % (Auto) [place] % (Auto) Lymph # [place] # Seg Neutrophils % Seg Neuts % (Manual) Lymphocytes % (Manual) Seg Neutrophils # Man Abs Lymphs (Manual) Lymphocytes # (Manual) Sodium Potassium Chloride Carbon Dioxide BUN Creatinine Glucose POC Glucose 321 H 479 H > 500 H Hemoglobin A1c C-Reactive Protein Albumin Absolute CD3 Count Absolute CD4 Count TB (QFT) Gold In Tube 09/19/16 09/19/16 09/20/16 20:58 22:38 04:12 WBC 14.2 H MCHC Lymph % (Auto) [place] % (Auto) Lymph # [place] # Seg Neutrophils % Seg Neuts % (Manual) 93.0 H Lymphocytes % (Manual) 3.0 L Seg Neutrophils # Man 13.2 H Abs Lymphs (Manual) Lymphocytes # (Manual) 0.4 L Sodium Potassium Chloride Carbon Dioxide BUN Creatinine Glucose POC Glucose > 500 H 404 H Hemoglobin A1c C-Reactive Protein Albumin Absolute CD3 Count Absolute CD4 Count TB (QFT) Gold In Tube 09/20/16 09/20/16 09/20/16 04:12 07:37 11:41 WBC MCHC Lymph % (Auto) [place] % (Auto) Lymph # [place] # Seg Neutrophils % Seg Neuts % (Manual) Lymphocytes % (Manual) Seg Neutrophils # Man Abs Lymphs (Manual) Lymphocytes # (Manual) Sodium 135 L D Potassium Chloride 97.6 L Carbon Dioxide BUN 31 H Creatinine 0.7 L Glucose 354 H POC Glucose 362 H 415 H Hemoglobin A1c C-Reactive Protein Albumin Absolute CD3 Count Absolute CD4 Count TB (QFT) Gold In Tube 09/20/16 09/20/16 09/20/16 16:25 17:53 17:53 WBC MCHC Lymph % (Auto) [place] % (Auto) Lymph # [place] # Seg Neutrophils % Seg Neuts % (Manual) Lymphocytes % (Manual) Seg Neutrophils # Man Abs Lymphs (Manual) 700 L Lymphocytes # (Manual) Sodium Potassium Chloride Carbon Dioxide BUN Creatinine Glucose POC Glucose 313 H Hemoglobin A1c C-Reactive Protein 1.60 H Albumin Absolute CD3 Count 479 L Absolute CD4 Count 264 L TB (QFT) Gold In Tube 09/21/16 09/21/16 09/21/16 07:31 07:49 07:49 WBC MCHC Lymph % (Auto) [place] % (Auto) Lymph # [place] # Seg Neutrophils % Seg Neuts % (Manual) Lymphocytes % (Manual) Seg Neutrophils # Man Abs Lymphs (Manual) Lymphocytes # (Manual) Sodium Potassium 5.2 H D Chloride Carbon Dioxide BUN 28 H Creatinine Glucose 139 H POC Glucose 139 H Hemoglobin A1c 12.6 H C-Reactive Protein Albumin Absolute CD3 Count Absolute CD4 Count TB (QFT) Gold In Tube 09/21/16 09/21/16 09/21/16 11:50 17:09 21:16 WBC MCHC Lymph % (Auto) [place] % (Auto) Lymph # [place] # Seg Neutrophils % Seg Neuts % (Manual) Lymphocytes % (Manual) Seg Neutrophils # Man Abs Lymphs (Manual) Lymphocytes # (Manual) Sodium Potassium Chloride Carbon Dioxide BUN Creatinine Glucose POC Glucose 307 H 203 H 255 H Hemoglobin A1c C-Reactive Protein Albumin Absolute CD3 Count Absolute CD4 Count TB (QFT) Gold In Tube 09/22/16 09/22/16 09/22/16 00:13 00:31 05:25 WBC MCHC Lymph % (Auto) 12.1 L [place] % (Auto) 14.6 H Lymph # 0.8 L [place] # 1.0 H Seg Neutrophils % 71.7 H Seg Neuts % (Manual) Lymphocytes % (Manual) Seg Neutrophils # Man Abs Lymphs (Manual) Lymphocytes # (Manual) Sodium Potassium Chloride Carbon Dioxide BUN Creatinine Glucose POC Glucose 49 L 246 H Hemoglobin A1c C-Reactive Protein Albumin Absolute CD3 Count Absolute CD4 Count TB (QFT) Gold In Tube 09/22/16 09/22/16 09/22/16 05:25 07:51 11:29 WBC MCHC Lymph % (Auto) [place] % (Auto) Lymph # [place] # Seg Neutrophils % Seg Neuts % (Manual) Lymphocytes % (Manual) Seg Neutrophils # Man Abs Lymphs (Manual) Lymphocytes # (Manual) Sodium Potassium Chloride Carbon Dioxide BUN Creatinine Glucose 255 H POC Glucose 268 H 323 H Hemoglobin A1c C-Reactive Protein Albumin Absolute CD3 Count Absolute CD4 Count TB (QFT) Gold In Tube 09/22/16 09/22/16 09/22/16 14:36 16:29 20:57 WBC MCHC Lymph % (Auto) [place] % (Auto) Lymph # [place] # Seg Neutrophils % Seg Neuts % (Manual) Lymphocytes % (Manual) Seg Neutrophils # Man Abs Lymphs (Manual) Lymphocytes # (Manual) Sodium Potassium Chloride Carbon Dioxide BUN Creatinine Glucose POC Glucose 252 H 165 H Hemoglobin A1c C-Reactive Protein Albumin Absolute CD3 Count Absolute CD4 Count TB (QFT) Gold In Tube Positive H 09/23/16 09/23/16 09/23/16 03:10 03:10 07:51 WBC MCHC Lymph % (Auto) [place] % (Auto) 11.3 H Lymph # [place] # 0.9 H Seg Neutrophils % 72.0 H Seg Neuts % (Manual) Lymphocytes % (Manual) Seg Neutrophils # Man Abs Lymphs (Manual) Lymphocytes # (Manual) Sodium 136 L Potassium Chloride 96.6 L Carbon Dioxide BUN Creatinine Glucose 153 H POC Glucose 121 H Hemoglobin A1c C-Reactive Protein Albumin Absolute CD3 Count Absolute CD4 Count TB (QFT) Gold In Tube 09/23/16 09/23/16 09/23/16 11:21 16:32 21:13 WBC MCHC Lymph % (Auto) [place] % (Auto) Lymph # [place] # Seg Neutrophils % Seg Neuts % (Manual) Lymphocytes % (Manual) Seg Neutrophils # Man Abs Lymphs (Manual) Lymphocytes # (Manual) Sodium Potassium Chloride Carbon Dioxide BUN Creatinine Glucose POC Glucose 251 H 302 H 230 H Hemoglobin A1c C-Reactive Protein Albumin Absolute CD3 Count Absolute CD4 Count TB (QFT) Gold In Tube 09/24/16 09/24/16 09/24/16 07:43 12:12 16:44 WBC MCHC Lymph % (Auto) [place] % (Auto) Lymph # [place] # Seg Neutrophils % Seg Neuts % (Manual) Lymphocytes % (Manual) Seg Neutrophils # Man Abs Lymphs (Manual) Lymphocytes # (Manual) Sodium Potassium Chloride Carbon Dioxide BUN Creatinine Glucose POC Glucose 222 H 243 H 351 H Hemoglobin A1c C-Reactive Protein Albumin Absolute CD3 Count Absolute CD4 Count TB (QFT) Gold In Tube 09/24/16 09/25/16 09/25/16 22:10 07:42 11:39 WBC MCHC Lymph % (Auto) [place] % (Auto) Lymph # [place] # Seg Neutrophils % Seg Neuts % (Manual) Lymphocytes % (Manual) Seg Neutrophils # Man Abs Lymphs (Manual) Lymphocytes # (Manual) Sodium Potassium Chloride Carbon Dioxide BUN Creatinine Glucose POC Glucose 242 H 154 H 300 H Hemoglobin A1c C-Reactive Protein Albumin Absolute CD3 Count Absolute CD4 Count TB (QFT) Gold In Tube 09/25/16 09/25/16 09/26/16 17:03 21:25 04:09 WBC MCHC 35 H Lymph % (Auto) [place] % (Auto) Lymph # [place] # Seg Neutrophils % Seg Neuts % (Manual) Lymphocytes % (Manual) Seg Neutrophils # Man Abs Lymphs (Manual) Lymphocytes # (Manual) Sodium Potassium Chloride Carbon Dioxide BUN Creatinine Glucose POC Glucose 273 H 127 H Hemoglobin A1c C-Reactive Protein Albumin Absolute CD3 Count Absolute CD4 Count TB (QFT) Gold In Tube 09/26/16 09/26/16 09/26/16 04:09 11:28 16:23 WBC MCHC Lymph % (Auto) [place] % (Auto) Lymph # [place] # Seg Neutrophils % Seg Neuts % (Manual) Lymphocytes % (Manual) Seg Neutrophils # Man Abs Lymphs (Manual) Lymphocytes # (Manual) Sodium 132 L Potassium 3.5 L Chloride 91.6 L Carbon Dioxide BUN Creatinine Glucose POC Glucose 268 H 245 H Hemoglobin A1c C-Reactive Protein Albumin 3.4 L Absolute CD3 Count Absolute CD4 Count TB (QFT) Gold In Tube 09/26/16 09/27/16 09/27/16 22:29 04:10 07:30 WBC MCHC Lymph % (Auto) [place] % (Auto) Lymph # [place] # Seg Neutrophils % Seg Neuts % (Manual) Lymphocytes % (Manual) Seg Neutrophils # Man Abs Lymphs (Manual) Lymphocytes # (Manual) Sodium 132 L Potassium 3.5 L Chloride 94.7 L Carbon Dioxide BUN 22 H Creatinine Glucose POC Glucose 69 L 121 H Hemoglobin A1c C-Reactive Protein Albumin Absolute CD3 Count Absolute CD4 Count TB (QFT) Gold In Tube 09/27/16 09/27/16 09/27/16 11:45 16:38 20:43 WBC MCHC Lymph % (Auto) [place] % (Auto) Lymph # [place] # Seg Neutrophils % Seg Neuts % (Manual) Lymphocytes % (Manual) Seg Neutrophils # Man Abs Lymphs (Manual) Lymphocytes # (Manual) Sodium Potassium Chloride Carbon Dioxide BUN Creatinine Glucose POC Glucose 142 H 165 H 44 L Hemoglobin A1c C-Reactive Protein Albumin Absolute CD3 Count Absolute CD4 Count TB (QFT) Gold In Tube 09/27/16 09/28/16 09/28/16 22:05 05:17 07:45 WBC MCHC Lymph % (Auto) [place] % (Auto) Lymph # [place] # Seg Neutrophils % Seg Neuts % (Manual) Lymphocytes % (Manual) Seg Neutrophils # Man Abs Lymphs (Manual) Lymphocytes # (Manual) Sodium 126 L Potassium Chloride 94.4 L Carbon Dioxide 14 L D BUN Creatinine 0.7 L Glucose 192 H POC Glucose 127 H 164 H Hemoglobin A1c C-Reactive Protein Albumin 2.8 L Absolute CD3 Count Absolute CD4 Count TB (QFT) Gold In Tube 09/28/16 11:55 WBC MCHC Lymph % (Auto) [place] % (Auto) Lymph # [place] # Seg Neutrophils % Seg Neuts % (Manual) Lymphocytes % (Manual) Seg Neutrophils # Man Abs Lymphs (Manual) Lymphocytes # (Manual) Sodium Potassium Chloride Carbon Dioxide BUN Creatinine Glucose POC Glucose 208 H Hemoglobin A1c C-Reactive Protein Albumin Absolute CD3 Count Absolute CD4 Count TB (QFT) Gold In Tube
[2016-09-29] MEDS: DUONEB *Not for PRN Use IH SCH ×4 (03:30→20:50)
[2016-09-29] MEDS: ZOSYN/NS 4.5GM/100ML 4.5 GM/100 ML VIAL IV SCH ×3 (04:22→20:00)
[2016-09-29] MEDS: NOVOLOG SUB-Q SCH ×6 (08:52→22:30)
[2016-09-29] MEDS: ZESTRIL PO SCH (09:00)
[2016-09-29] MEDS: ISONIAZID PO SCH (09:01)
[2016-09-29] MEDS: RIFADIN PO SCH (09:01)
[2016-09-29] MEDS: VITAMIN B-6 PO SCH (09:01)
[2016-09-29] MEDS: MYAMBUTOL PO SCH (09:01)
[2016-09-29] MEDS: PEPCID PO SCH ×2 (09:01→22:00)
--- NOTE | 2016-09-29 11:23 | Progress Note ---
Assessment and Plan Assessment and plan: Patient is a 65 year old [place] male with past medical history of diabetes mellitus and hypertension presenting with 3 weeks of worsening dyspnea on light exertion, chest pain, cough, and a 10 lb weight loss in 8 days. Patient does not speak Kyrgyz and I used the phone healthcare interpreter services. Patient Just over 6 months ago the patient was at his normal baseline state of health. Now he has had progressive worsening of his dyspnea on exertion (RIOS) to where he cannot walk across a room or talk while sitting up without becoming short of breath; he has never had anything like this before. Additionally, he has a productive cough with bloody mucus, and often coughs so hard that he ends up with a lot of blood mucus secretions. He has had no fevers, chills, or night sweats. He has no allergies, seasonal or otherwise, and no hx of breathing troubles/asthma. no dyspnea at rest (as long as he is lying down), no orthopnea, and no paroxysmal nocturnal dyspnea. No hx of recurrent pneumonia. He has no sick contact, TB exposure (that he knows of ie incarcerated, homeless). He also has no pets, has not been around any farm animals, and has not traveled recently or been around those who have. * Pulmonary tuberculosis. Patient was admitted for chronic cough, hemoptysis CT showed multiple cavitary mass lesions. Lung biopsy done. Pulmonary and ID following, Sputum for AFB X 3, received. One set positive for AFB, presumed pulmonary tuberculosis WITH High quantity, STARTED ON RIPE REGIMEN. VALERY on discharge planning * Hememoptysis due to TB, Resolved * Acute Respiratory failure- Pulmonary following. Continue nebs, * Metabolic Acidosis; Start on Bicarb. * Lung Mass- Ct guided biopsy, prliminary negative for malignancy, final path pending. * Leukocytosis resolved * Diabetes mellitus type 2. Continue fingerstick glucose before every meal and at bedtime, Adjust insulin to 20 units BID * Hyponatremia, hypovoluemia- continue ivf and monitor. * Hypokalemia. Replace orally and recheck in am. * Malnutrition- Nutrition consult * DVT prophylaxis with SCDs only. No anticoag because of hemoptysis * Plan of care discussed with family in detail. * Discussed with Case management, awaiting VALERY for outpateint close monitoring therapy. History Interval history: Patient is examined this morning still with cough although with no other hemoptysis noted. Hospitalist Physical - Physical exam Narrative exam: VITAL SIGNS: Reviewed. GENERAL: The patient appeared well nourished and normally developed. Vital signs as documented. HEAD: No signs of head trauma. EYES: Pupils are equal. Extraocular motions intact. EARS: Hearing grossly intact. MOUTH: Oropharynx is normal. NECK: No adenopathy, no JVD. CHEST: Chest with rales sounds bilaterally. CARDIAC: Regular rate and rhythm. S1 and S2, without murmurs, gallops, or rubs. VASCULAR: No Edema. Peripheral pulses normal and equal in all extremities. ABDOMEN: Soft, without detectable tenderness. No sign of distention. No rebound or guarding, and no masses palpated. Bowel Sounds normal. MUSCULOSKELETAL: Good range of motion of all major joints. Extremities without clubbing, cyanosis or edema. NEUROLOGIC EXAM: Alert and oriented x 3. No focal sensory or strength deficits. Speech normal. Follows commands. PSYCHIATRIC: Mood normal. SKIN: No rash or lesions. - Constitutional Vitals: Temp Pulse Resp BP Pulse Ox 97.7 F 71 16 125/79 97 09/29/16 08:00 09/29/16 09:00 09/29/16 08:24 09/29/16 09:00 09/29/16 08:00 General appearance: Present: no acute distress (multiple family members at bedside, wearing N95 masks) Results - Labs CBC & Chem 7: 09/28/16 05:17 09/28/16 05:17 Labs: Laboratory Last Values WBC 5.1 K/mm3 (4.5-11.0) 09/28/16 05:17 RBC 3.81 M/mm3 (3.65-5.03) 09/28/16 05:17 Hgb 11.9 gm/dl (11.8-15.2) 09/28/16 05:17 Hct 35.6 % (35.5-45.6) 09/28/16 05:17 MCV 94 fl (84-94) D 09/28/16 05:17 MCH 31 pg (28-32) 09/28/16 05:17 MCHC 33 % (32-34) 09/28/16 05:17 RDW 14.3 % (13.2-15.2) 09/28/16 05:17 Plt Count 279 K/mm3 (140-440) 09/28/16 05:17 Lymph % (Auto) 14.2 % (13.4-35.0) 09/23/16 03:10 [place] % (Auto) 11.3 % (0.0-7.3) H 09/23/16 03:10 Eos % (Auto) 2.0 % (0.0-4.3) 09/23/16 03:10 Baso % (Auto) 0.5 % (0.0-1.8) 09/23/16 03:10 Lymph # 1.2 K/mm3 (1.2-5.4) 09/23/16 03:10 [place] # 0.9 K/mm3 (0.0-0.8) H 09/23/16 03:10 Eos # 0.2 K/mm3 (0.0-0.4) 09/23/16 03:10 Baso # 0.0 K/mm3 (0.0-0.1) 09/23/16 03:10 Add Manual Diff Complete 09/20/16 04:12 Total Counted 100 09/20/16 04:12 Seg Neutrophils % 72.0 % (40.0-70.0) H 09/23/16 03:10 Seg Neuts % (Manual) 93.0 % (40.0-70.0) H 09/20/16 04:12 Band Neutrophils % 0 % 09/20/16 04:12 Lymphocytes % (Manual) 3.0 % (13.4-35.0) L 09/20/16 04:12 Reactive Lymphs % (Man) 0 % 09/20/16 04:12 Monocytes % (Manual) 4.0 % (0.0-7.3) 09/20/16 04:12 Eosinophils % (Manual) 0 % (0.0-4.3) 09/20/16 04:12 Basophils % (Manual) 0 % (0.0-1.8) 09/20/16 04:12 Metamyelocytes % 0 % 09/20/16 04:12 Myelocytes % 0 % 09/20/16 04:12 Promyelocytes % 0 % 09/20/16 04:12 Blast Cells % 0 % 09/20/16 04:12 Nucleated RBC % Not Reportable 09/20/16 04:12 Seg Neutrophils # 6.0 K/mm3 (1.8-7.7) 09/23/16 03:10 Seg Neutrophils # Man 13.2 K/mm3 (1.8-7.7) H 09/20/16 04:12 Band Neutrophils # 0.0 K/mm3 09/20/16 04:12 Abs Lymphs (Manual) 700 cells/uL (850-3900) L 09/20/16 17:53 Lymphocytes # (Manual) 0.4 K/mm3 (1.2-5.4) L 09/20/16 04:12 Abs React Lymphs (Man) 0.0 K/mm3 09/20/16 04:12 Monocytes # (Manual) 0.6 K/mm3 (0.0-0.8) 09/20/16 04:12 Eosinophils # (Manual) 0.0 K/mm3 (0.0-0.4) 09/20/16 04:12 Basophils # (Manual) 0.0 K/mm3 (0.0-0.1) 09/20/16 04:12 Metamyelocytes # 0.0 K/mm3 09/20/16 04:12 Myelocytes # 0.0 K/mm3 09/20/16 04:12 Promyelocytes # 0.0 K/mm3 09/20/16 04:12 Blast Cells # 0.0 K/mm3 09/20/16 04:12 WBC Morphology Not Reportable 09/20/16 04:12 Hypersegmented Neuts Not Reportable 09/20/16 04:12 Hyposegmented Neuts Not Reportable 09/20/16 04:12 Hypogranular Neuts Not Reportable 09/20/16 04:12 Smudge Cells Not Reportable 09/20/16 04:12 Toxic Granulation Not Reportable 09/20/16 04:12 Toxic Vacuolation Not Reportable 09/20/16 04:12 Dohle Bodies Not Reportable 09/20/16 04:12 Pelger-Huet Anomaly Not Reportable 09/20/16 04:12 Lalit Rods Not Reportable 09/20/16 04:12 Platelet Estimate Appears normal 09/20/16 04:12 Clumped Platelets Not Reportable 09/20/16 04:12 Plt Clumps, EDTA Not Reportable 09/20/16 04:12 Large Platelets Not Reportable 09/20/16 04:12 Giant Platelets Not Reportable 09/20/16 04:12 Platelet Satelliting Not Reportable 09/20/16 04:12 Plt Morphology Comment Not Reportable 09/20/16 04:12 RBC Morphology Normal 09/20/16 04:12 Dimorphic RBCs Not Reportable 09/20/16 04:12 Polychromasia Not Reportable 09/20/16 04:12 Hypochromasia Not Reportable 09/20/16 04:12 Poikilocytosis Not Reportable 09/20/16 04:12 Anisocytosis Not Reportable 09/20/16 04:12 Microcytosis Not Reportable 09/20/16 04:12 Macrocytosis Not Reportable 09/20/16 04:12 Spherocytes Not Reportable 09/20/16 04:12 Pappenheimer Bodies Not Reportable 09/20/16 04:12 Sickle Cells Not Reportable 09/20/16 04:12 Target Cells Not Reportable 09/20/16 04:12 Tear Drop Cells Not Reportable 09/20/16 04:12 Ovalocytes Not Reportable 09/20/16 04:12 Helmet Cells Not Reportable 09/20/16 04:12 Goode-Kathleen Bodies Not Reportable 09/20/16 04:12 Macon Rings Not Reportable 09/20/16 04:12 Valerie Cells Not Reportable 09/20/16 04:12 Bite Cells Not Reportable 09/20/16 04:12 Crenated Cell Not Reportable 09/20/16 04:12 Elliptocytes Not Reportable 09/20/16 04:12 Acanthocytes (Spur) Not Reportable 09/20/16 04:12 Rouleaux Not Reportable 09/20/16 04:12 Hemoglobin C Crystals Not Reportable 09/20/16 04:12 Schistocytes Not Reportable 09/20/16 04:12 Malaria parasites Not Reportable 09/20/16 04:12 Britton Bodies Not Reportable 09/20/16 04:12 Hem Pathologist Commnt No 09/20/16 04:12 PT 13.4 Sec. (12.2-14.9) 09/23/16 16:56 INR 1.03 (0.87-1.13) 09/23/16 16:56 VBG pH 7.500 (7.320-7.420) H 09/19/16 03:04 Sodium 126 mmol/L (137-145) L 09/28/16 05:17 Potassium 4.4 mmol/L (3.6-5.0) D 09/28/16 05:17 Chloride 94.4 mmol/L (98-107) L 09/28/16 05:17 Carbon Dioxide 14 mmol/L (22-30) L D 09/28/16 05:17 Anion Gap 22 mmol/L 09/28/16 05:17 BUN 15 mg/dL (9-20) 09/28/16 05:17 Creatinine 0.7 mg/dL (0.8-1.5) L 09/28/16 05:17 Estimated GFR > 60 ml/min 09/28/16 05:17 BUN/Creatinine Ratio 21.42 % 09/28/16 05:17 Glucose 192 mg/dL (75-100) H 09/28/16 05:17 POC Glucose 238 (70-105) H 09/29/16 07:49 Hemoglobin A1c 12.6 % (4-6) H 09/21/16 07:49 Calcium 8.4 mg/dL (8.4-10.2) 09/28/16 05:17 Total Bilirubin 0.60 mg/dL (0.1-1.2) 09/28/16 05:17 AST 18 units/L (5-40) 09/28/16 05:17 ALT 12 units/L (7-56) 09/28/16 05:17 Alkaline Phosphatase 64 units/L (35-129) 09/28/16 05:17 Troponin T < 0.010 ng/mL (0.00-0.029) 09/19/16 07:03 C-Reactive Protein 1.60 mg/dL (0.00-1.30) H 09/20/16 17:53 NT-Pro-B Natriuret Pep 280.0 pg/mL (0-900) 09/19/16 07:03 Total Protein 6.5 g/dL (6.3-8.2) 09/28/16 05:17 Albumin 2.8 g/dL (3.9-5) L 09/28/16 05:17 Albumin/Globulin Ratio 0.8 % 09/28/16 05:17 Urine Color Straw (Yellow) 09/19/16 Unknown Urine Turbidity Clear (Clear) 09/19/16 Unknown Urine pH 5.0 (5.0-7.0) 09/19/16 Unknown Ur Specific [place] 1.030 (1.003-1.030) 09/19/16 Unknown Urine Protein <15 mg/dl mg/dL (Negative) 09/19/16 Unknown Urine Glucose (UA) >=500 mg/dL (Negative) 09/19/16 Unknown Urine Ketones 20 mg/dL (Negative) 09/19/16 Unknown Urine Blood Neg (Negative) 09/19/16 Unknown Urine Nitrite Neg (Negative) 09/19/16 Unknown Urine Bilirubin Neg (Negative) 09/19/16 Unknown Urine Urobilinogen < 2.0 mg/dL (<2.0) 09/19/16 Unknown Ur Leukocyte Esterase Neg (Negative) 09/19/16 Unknown Urine WBC (Auto) 0.0 /HPF (0.0-6.0) 09/19/16 Unknown Urine RBC (Auto) 1.0 /HPF (0.0-6.0) 09/19/16 Unknown Urine Mucus Few /HPF 09/19/16 Unknown Proteinase 3 (PR3) Ab <1.0 AI (<1.0) 09/21/16 09:18 Myeloperoxidase Ab <1.0 AI (<1.0) 09/21/16 09:18 Lymph Enumerat CD4/CD8 1.17 (0.86-5.00) 09/20/16 17:53 % CD3 Cells 68 % (57-85) 09/20/16 17:53 Absolute CD3 Count 479 cells/uL (840-3060) L 09/20/16 17:53 % CD4 Cells 37 % (30-61) 09/20/16 17:53 Absolute CD4 Count 264 cells/uL (490-1740) L 09/20/16 17:53 % CD8 Cells 32 % (12-42) 09/20/16 17:53 Absolute CD8 Count 226 cells/uL (180-1170) 09/20/16 17:53 % CD19 Cells 16 % (6-29) 09/20/16 17:53 Absolute CD19 Count 113 cells/uL (110-660) 09/20/16 17:53 HIV 1&2 Antibody Rapid Non react (Non React) 09/21/16 09:18 HIV P24 Antigen Non react (Non React) 09/21/16 09:18 TB (QFT) Gold In Tube Positive (Negative) H 09/22/16 14:36 TB Test (QFT) Nil 3.81 IU/mL 09/22/16 14:36 TB Test Mitogen - Nil 5.89 IU/mL 09/22/16 14:36 TB Test Antigen - Nil 5.89 IU/mL 09/22/16 14:36
[2016-09-29] MEDS: PYRAZINAMIDE PO SCH (13:38)
--- NOTE | 2016-09-29 18:22 | Progress Note ---
Assessment and Plan Patient alert, awake . Cough is getting better. Resting on room air. No acute respiratory distress. 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 Anti tuberculous medications started by ID.Patient also Has CT guided Lung biopsy.Preliminary report no malignant cells.Reported inflammation with necrotic debri.Patient is on Isoniazid, Rifampin, Ethambutol, Pyrazynamide and pyridoxineand respiratory isolation. - Patient Problems (1) Hemoptysis Current Visit: Yes Status: Acute Plan to address problem: Cough is getting better. Not much hemoptysis today. 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 Anti tuberculous medications started by ID.Patient also Has CT guided Lung biopsy.Preliminary report no malignant cells.Reported inflammation with necrotic debri.Patient is on Isoniazid, Rifampin, Ethambutol, Pyrazynamide and pyridoxineand respiratory isolation. (2) Lung mass Current Visit: Yes Status: Acute Plan to address problem: Patient Has CT guided lung biopsy of right lower lobe nodule today.. Preliminary report no malignant cells.Reported inflammation and necrotic debri. (3) Pneumonia Current Visit: Yes Status: Acute Qualifiers: Pneumonia type: due to unspecified organism Aspiration pneumonia type: A Laterality: bilateral Lung location: L Plan to address problem: Patient is on zosyn. (4) Shortness of breath Current Visit: Yes Status: Acute Plan to address problem: Shortness of breath improved. Albuterol/atrovent aerosol treatments q 6 hours. Subjective Date of service: 09/29/16 Principal diagnosis: Cavitory Pneumonia (? Aspiration); Hemoptysis (R/O TB) Interval history: Patient alert, awake . Cough is getting better. Resting on room air. No acute respiratory distress. 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 Anti tuberculous medications started by ID.Patient also Has CT guided Lung biopsy.Preliminary report no malignant cells.Reported inflammation with necrotic debri.Patient is on Isoniazid, Rifampin, Ethambutol, Pyrazynamide and pyridoxineand respiratory isolation. Objective Vital Signs - 12hr 09/29/16 09/29/16 09/29/16 08:00 08:12 08:24 Temperature 97.7 F Pulse Rate Pulse Rate [ 84 93 H Anterior Left Throughout] Pulse Rate [ 71 From Monitor] Respiratory 18 Rate Respiratory 15 16 Rate [Anterior Left Throughout ] Blood Pressure Blood Pressure 125/79 [Right Arm] O2 Sat by Pulse 97 Oximetry 09/29/16 09/29/16 09/29/16 09:00 10:00 14:11 Temperature Pulse Rate 71 Pulse Rate [ 87 Anterior Left Throughout] Pulse Rate [ From Monitor] Respiratory Rate Respiratory 17 Rate [Anterior Left Throughout ] Blood Pressure 125/79 Blood Pressure [Right Arm] O2 Sat by Pulse 97 Oximetry 09/29/16 14:26 Temperature Pulse Rate Pulse Rate [ 92 H Anterior Left Throughout] Pulse Rate [ From Monitor] Respiratory Rate Respiratory 17 Rate [Anterior Left Throughout ] Blood Pressure Blood Pressure [Right Arm] O2 Sat by Pulse Oximetry Constitutional: no acute distress, alert Eyes: non-icteric ENT: oropharynx moist Neck: supple, no lymphadenopathy Effort: mildly labored Ascultation: Bilateral: rales (RLL) Cardiovascular: regular rate and rhythm Gastrointestinal: normoactive bowel sounds, soft, non-tender, non-distended Integumentary: normal Extremities: no cyanosis, no edema, pulses normal, no ischemia or petechiae Neurologic: normal mental status, non-focal exam Psychiatric: mood appropriate, affect normal CBC and BMP: 09/28/16 05:17 09/28/16 05:17 ABG, PT/INR, D-dimer: PT/INR, D-dimer PT 13.4 Sec. (12.2-14.9) 09/23/16 16:56 INR 1.03 (0.87-1.13) 09/23/16 16:56 Abnormal lab findings: Abnormal Labs 09/19/16 09/19/16 09/19/16 11:59 16:44 18:06 WBC MCHC Lymph % (Auto) [place] % (Auto) Lymph # [place] # Seg Neutrophils % Seg Neuts % (Manual) Lymphocytes % (Manual) Seg Neutrophils # Man Abs Lymphs (Manual) Lymphocytes # (Manual) Sodium Potassium Chloride Carbon Dioxide BUN Creatinine Glucose POC Glucose 321 H 479 H > 500 H Hemoglobin A1c C-Reactive Protein Albumin Absolute CD3 Count Absolute CD4 Count TB (QFT) Gold In Tube 09/19/16 09/19/16 09/20/16 20:58 22:38 04:12 WBC 14.2 H MCHC Lymph % (Auto) [place] % (Auto) Lymph # [place] # Seg Neutrophils % Seg Neuts % (Manual) 93.0 H Lymphocytes % (Manual) 3.0 L Seg Neutrophils # Man 13.2 H Abs Lymphs (Manual) Lymphocytes # (Manual) 0.4 L Sodium Potassium Chloride Carbon Dioxide BUN Creatinine Glucose POC Glucose > 500 H 404 H Hemoglobin A1c C-Reactive Protein Albumin Absolute CD3 Count Absolute CD4 Count TB (QFT) Gold In Tube 09/20/16 09/20/16 09/20/16 04:12 07:37 11:41 WBC MCHC Lymph % (Auto) [place] % (Auto) Lymph # [place] # Seg Neutrophils % Seg Neuts % (Manual) Lymphocytes % (Manual) Seg Neutrophils # Man Abs Lymphs (Manual) Lymphocytes # (Manual) Sodium 135 L D Potassium Chloride 97.6 L Carbon Dioxide BUN 31 H Creatinine 0.7 L Glucose 354 H POC Glucose 362 H 415 H Hemoglobin A1c C-Reactive Protein Albumin Absolute CD3 Count Absolute CD4 Count TB (QFT) Gold In Tube 09/20/16 09/20/16 09/20/16 16:25 17:53 17:53 WBC MCHC Lymph % (Auto) [place] % (Auto) Lymph # [place] # Seg Neutrophils % Seg Neuts % (Manual) Lymphocytes % (Manual) Seg Neutrophils # Man Abs Lymphs (Manual) 700 L Lymphocytes # (Manual) Sodium Potassium Chloride Carbon Dioxide BUN Creatinine Glucose POC Glucose 313 H Hemoglobin A1c C-Reactive Protein 1.60 H Albumin Absolute CD3 Count 479 L Absolute CD4 Count 264 L TB (QFT) Gold In Tube 09/21/16 09/21/16 09/21/16 07:31 07:49 07:49 WBC MCHC Lymph % (Auto) [place] % (Auto) Lymph # [place] # Seg Neutrophils % Seg Neuts % (Manual) Lymphocytes % (Manual) Seg Neutrophils # Man Abs Lymphs (Manual) Lymphocytes # (Manual) Sodium Potassium 5.2 H D Chloride Carbon Dioxide BUN 28 H Creatinine Glucose 139 H POC Glucose 139 H Hemoglobin A1c 12.6 H C-Reactive Protein Albumin Absolute CD3 Count Absolute CD4 Count TB (QFT) Gold In Tube 09/21/16 09/21/16 09/21/16 11:50 17:09 21:16 WBC MCHC Lymph % (Auto) [place] % (Auto) Lymph # [place] # Seg Neutrophils % Seg Neuts % (Manual) Lymphocytes % (Manual) Seg Neutrophils # Man Abs Lymphs (Manual) Lymphocytes # (Manual) Sodium Potassium Chloride Carbon Dioxide BUN Creatinine Glucose POC Glucose 307 H 203 H 255 H Hemoglobin A1c C-Reactive Protein Albumin Absolute CD3 Count Absolute CD4 Count TB (QFT) Gold In Tube 09/22/16 09/22/16 09/22/16 00:13 00:31 05:25 WBC MCHC Lymph % (Auto) 12.1 L [place] % (Auto) 14.6 H Lymph # 0.8 L [place] # 1.0 H Seg Neutrophils % 71.7 H Seg Neuts % (Manual) Lymphocytes % (Manual) Seg Neutrophils # Man Abs Lymphs (Manual) Lymphocytes # (Manual) Sodium Potassium Chloride Carbon Dioxide BUN Creatinine Glucose POC Glucose 49 L 246 H Hemoglobin A1c C-Reactive Protein Albumin Absolute CD3 Count Absolute CD4 Count TB (QFT) Gold In Tube 09/22/16 09/22/16 09/22/16 05:25 07:51 11:29 WBC MCHC Lymph % (Auto) [place] % (Auto) Lymph # [place] # Seg Neutrophils % Seg Neuts % (Manual) Lymphocytes % (Manual) Seg Neutrophils # Man Abs Lymphs (Manual) Lymphocytes # (Manual) Sodium Potassium Chloride Carbon Dioxide BUN Creatinine Glucose 255 H POC Glucose 268 H 323 H Hemoglobin A1c C-Reactive Protein Albumin Absolute CD3 Count Absolute CD4 Count TB (QFT) Gold In Tube 09/22/16 09/22/16 09/22/16 14:36 16:29 20:57 WBC MCHC Lymph % (Auto) [place] % (Auto) Lymph # [place] # Seg Neutrophils % Seg Neuts % (Manual) Lymphocytes % (Manual) Seg Neutrophils # Man Abs Lymphs (Manual) Lymphocytes # (Manual) Sodium Potassium Chloride Carbon Dioxide BUN Creatinine Glucose POC Glucose 252 H 165 H Hemoglobin A1c C-Reactive Protein Albumin Absolute CD3 Count Absolute CD4 Count TB (QFT) Gold In Tube Positive H 09/23/16 09/23/16 09/23/16 03:10 03:10 07:51 WBC MCHC Lymph % (Auto) [place] % (Auto) 11.3 H Lymph # [place] # 0.9 H Seg Neutrophils % 72.0 H Seg Neuts % (Manual) Lymphocytes % (Manual) Seg Neutrophils # Man Abs Lymphs (Manual) Lymphocytes # (Manual) Sodium 136 L Potassium Chloride 96.6 L Carbon Dioxide BUN Creatinine Glucose 153 H POC Glucose 121 H Hemoglobin A1c C-Reactive Protein Albumin Absolute CD3 Count Absolute CD4 Count TB (QFT) Gold In Tube 09/23/16 09/23/16 09/23/16 11:21 16:32 21:13 WBC MCHC Lymph % (Auto) [place] % (Auto) Lymph # [place] # Seg Neutrophils % Seg Neuts % (Manual) Lymphocytes % (Manual) Seg Neutrophils # Man Abs Lymphs (Manual) Lymphocytes # (Manual) Sodium Potassium Chloride Carbon Dioxide BUN Creatinine Glucose POC Glucose 251 H 302 H 230 H Hemoglobin A1c C-Reactive Protein Albumin Absolute CD3 Count Absolute CD4 Count TB (QFT) Gold In Tube 09/24/16 09/24/16 09/24/16 07:43 12:12 16:44 WBC MCHC Lymph % (Auto) [place] % (Auto) Lymph # [place] # Seg Neutrophils % Seg Neuts % (Manual) Lymphocytes % (Manual) Seg Neutrophils # Man Abs Lymphs (Manual) Lymphocytes # (Manual) Sodium Potassium Chloride Carbon Dioxide BUN Creatinine Glucose POC Glucose 222 H 243 H 351 H Hemoglobin A1c C-Reactive Protein Albumin Absolute CD3 Count Absolute CD4 Count TB (QFT) Gold In Tube 09/24/16 09/25/16 09/25/16 22:10 07:42 11:39 WBC MCHC Lymph % (Auto) [place] % (Auto) Lymph # [place] # Seg Neutrophils % Seg Neuts % (Manual) Lymphocytes % (Manual) Seg Neutrophils # Man Abs Lymphs (Manual) Lymphocytes # (Manual) Sodium Potassium Chloride Carbon Dioxide BUN Creatinine Glucose POC Glucose 242 H 154 H 300 H Hemoglobin A1c C-Reactive Protein Albumin Absolute CD3 Count Absolute CD4 Count TB (QFT) Gold In Tube 09/25/16 09/25/16 09/26/16 17:03 21:25 04:09 WBC MCHC 35 H Lymph % (Auto) [place] % (Auto) Lymph # [place] # Seg Neutrophils % Seg Neuts % (Manual) Lymphocytes % (Manual) Seg Neutrophils # Man Abs Lymphs (Manual) Lymphocytes # (Manual) Sodium Potassium Chloride Carbon Dioxide BUN Creatinine Glucose POC Glucose 273 H 127 H Hemoglobin A1c C-Reactive Protein Albumin Absolute CD3 Count Absolute CD4 Count TB (QFT) Gold In Tube 09/26/16 09/26/16 09/26/16 04:09 11:28 16:23 WBC MCHC Lymph % (Auto) [place] % (Auto) Lymph # [place] # Seg Neutrophils % Seg Neuts % (Manual) Lymphocytes % (Manual) Seg Neutrophils # Man Abs Lymphs (Manual) Lymphocytes # (Manual) Sodium 132 L Potassium 3.5 L Chloride 91.6 L Carbon Dioxide BUN Creatinine Glucose POC Glucose 268 H 245 H Hemoglobin A1c C-Reactive Protein Albumin 3.4 L Absolute CD3 Count Absolute CD4 Count TB (QFT) Gold In Tube 09/26/16 09/27/16 09/27/16 22:29 04:10 07:30 WBC MCHC Lymph % (Auto) [place] % (Auto) Lymph # [place] # Seg Neutrophils % Seg Neuts % (Manual) Lymphocytes % (Manual) Seg Neutrophils # Man Abs Lymphs (Manual) Lymphocytes # (Manual) Sodium 132 L Potassium 3.5 L Chloride 94.7 L Carbon Dioxide BUN 22 H Creatinine Glucose POC Glucose 69 L 121 H Hemoglobin A1c C-Reactive Protein Albumin Absolute CD3 Count Absolute CD4 Count TB (QFT) Gold In Tube 09/27/16 09/27/16 09/27/16 11:45 16:38 20:43 WBC MCHC Lymph % (Auto) [place] % (Auto) Lymph # [place] # Seg Neutrophils % Seg Neuts % (Manual) Lymphocytes % (Manual) Seg Neutrophils # Man Abs Lymphs (Manual) Lymphocytes # (Manual) Sodium Potassium Chloride Carbon Dioxide BUN Creatinine Glucose POC Glucose 142 H 165 H 44 L Hemoglobin A1c C-Reactive Protein Albumin Absolute CD3 Count Absolute CD4 Count TB (QFT) Gold In Tube 09/27/16 09/28/16 09/28/16 22:05 05:17 07:45 WBC MCHC Lymph % (Auto) [place] % (Auto) Lymph # [place] # Seg Neutrophils % Seg Neuts % (Manual) Lymphocytes % (Manual) Seg Neutrophils # Man Abs Lymphs (Manual) Lymphocytes # (Manual) Sodium 126 L Potassium Chloride 94.4 L Carbon Dioxide 14 L D BUN Creatinine 0.7 L Glucose 192 H POC Glucose 127 H 164 H Hemoglobin A1c C-Reactive Protein Albumin 2.8 L Absolute CD3 Count Absolute CD4 Count TB (QFT) Gold In Tube 09/28/16 09/28/16 09/28/16 11:55 16:40 21:51 WBC MCHC Lymph % (Auto) [place] % (Auto) Lymph # [place] # Seg Neutrophils % Seg Neuts % (Manual) Lymphocytes % (Manual) Seg Neutrophils # Man Abs Lymphs (Manual) Lymphocytes # (Manual) Sodium Potassium Chloride Carbon Dioxide BUN Creatinine Glucose POC Glucose 208 H 120 H 243 H Hemoglobin A1c C-Reactive Protein Albumin Absolute CD3 Count Absolute CD4 Count TB (QFT) Gold In Tube 09/29/16 09/29/16 09/29/16 07:49 12:19 17:01 WBC MCHC Lymph % (Auto) [place] % (Auto) Lymph # [place] # Seg Neutrophils % Seg Neuts % (Manual) Lymphocytes % (Manual) Seg Neutrophils # Man Abs Lymphs (Manual) Lymphocytes # (Manual) Sodium Potassium Chloride Carbon Dioxide BUN Creatinine Glucose POC Glucose 238 H 182 H 142 H Hemoglobin A1c C-Reactive Protein Albumin Absolute CD3 Count Absolute CD4 Count TB (QFT) Gold In Tube
[2016-09-30] MEDS: DUONEB *Not for PRN Use IH SCH ×3 (02:50→13:31)
[2016-09-30 04:20] LABS: Hematocrit 35.4 % (35.5-45.6); Hemoglobin 12.4 gm/dl (11.8-15.2); Mean Corpuscular HGB Conc 35 % (32-34); Mean Corpuscular Hemoglobin 31 pg (28-32); Mean Corpuscular Volume 90 fl (84-94); Platelet Count 356 K/mm3 (140-440); Red Blood Count 3.93 M/mm3 (3.65-5.03); Red Cell Distribution Width 13.9 % (13.2-15.2); White Blood Count 6.8 K/mm3 (4.5-11.0)
[2016-09-30 04:31] LABS: Blood Urea Nitrogen 16 mg/dL (9-20); Calcium 9.3 mg/dL (8.4-10.2); Carbon Dioxide 23 mmol/L (22-30); Chloride 95.1 mmol/L (98-107); Glucose 135 mg/dL (75-100); Potassium 3.8 mmol/L (3.6-5.0); Sodium 136 mmol/L (137-145)
[2016-09-30 04:38] LABS: Anion Gap 22 mmol/L
[2016-09-30] MEDS: NOVOLOG SUB-Q SCH ×2 (07:55→11:42)
[2016-09-30] MEDS: MYAMBUTOL PO SCH (09:03)
[2016-09-30] MEDS: RIFADIN PO SCH (09:04)
[2016-09-30] MEDS: ZESTRIL PO SCH (09:04)
[2016-09-30] MEDS: PEPCID PO SCH (09:04)
[2016-09-30] MEDS: ISONIAZID PO SCH (09:05)
[2016-09-30] MEDS: VITAMIN B-6 PO SCH (09:05)
[2016-09-30] MEDS: PYRAZINAMIDE PO SCH (09:06)
[2016-09-30 09:07] VITALS: BP 107/52
[2016-09-30] MEDS: ZOSYN/NS 4.5GM/100ML 4.5 GM/100 ML VIAL IV SCH ×2 (09:07→12:24)
--- NOTE | 2016-09-30 11:35 | Discharge Summary ---
Providers - Providers Date of Admission: 09/19/16 08:44 Date of discharge: 09/30/16 Attending physician: JAMMIE SÁNCHEZ MD 09/19/16 09:18 Consult to Physician [CONS] Routine Consulting Provider: CHIRAG PENG Reason For Exam: Lung mass Place consult to:: yes Notified:: yes Phone number called:: yes 09/19/16 10:53 Consult to Physician [CONS] Routine Consulting Provider: STANFORD PEREZ Reason For Exam: lung masses Place consult to:: answering service Notified:: yes Phone number called:: [phone] If yes, spoke with:: hali Time called:: 12:32 Comment:: purvi 09/20/16 10:14 Physical Therapy Evaluation and Treat [CONS] Urgent Comment: Reason For Exam: weakness 09/20/16 18:13 Consult to Physician [CONS] Routine Consulting Provider: VANITA TOWNSEND Reason For Exam: cavitory pneumonia Place consult to:: answering machine Notified:: yes Phone number called:: [phone] Time called:: 18:15 Comment:: left mess. to call dr. almazan /purvi Primary care physician: ORGANIZATION DEVELOPMENT CONSULTANT Hospitalization Reason for admission: hemoptysis Condition: Stable Hospital course: Patient is a 65 year old [place] male with past medical history of diabetes mellitus and hypertension presenting with 3 weeks of worsening dyspnea on light exertion, chest pain, cough, and a 10 lb weight loss in 8 days. Patient does not speak [place] and I used the phone translator/interpreter services. Patient Just over 6 months ago the patient was at his normal baseline state of health. Now he has had progressive worsening of his dyspnea on exertion (RIOS) to where he cannot walk across a room or talk while sitting up without becoming short of breath; he has never had anything like this before. Additionally, he has a productive cough with bloody mucus, and often coughs so hard that he ends up with a lot of blood mucus secretions. He has had no fevers, chills, or night sweats. He has no allergies, seasonal or otherwise, and no hx of breathing troubles/asthma. no dyspnea at rest (as long as he is lying down), no orthopnea, and no paroxysmal nocturnal dyspnea. No hx of recurrent pneumonia. He has no sick contact, TB exposure that he knows of. The patient recently immig[place] into the [place] about 6 months ago. On further reevaluation the patient persisted to have imaging studies which showed cavitary lesions. Intermediate report on biopsies did not reveal malignancy and the patient also had positive AFBs with large quantity sample noted. The patient was started on IV PE therapy continued to improve shortness of breath resolved. The Department of Health was contacted as patient will need prolonged therapy and will need direct observation therapy. GABRIELA méndez present to the hospital and evaluated the patient and set up discharge arrangements. Extensive counseling was provided to family members tested and all be followed by the [facility]. Follow with pulmonary and infectious disease on discharge and ideation. No pathology is pending this was discussed with the patient and family and they'll follow with pulmonary for results. * Pulmonary tuberculosis. * Hememoptysis * Acute Respiratory failure * Metabolic Acidosis * Lung Mass- * Leukocytosis * Diabetes mellitus type 2. * Hyponatremia, hypovoluemia- * Hypokalemia. * Malnutrition Disposition: DC-01 TO HOME OR SELFCARE Time spent for discharge: 35 MINS Core Measure Documentation - Palliative Care Palliative Care/ Comfort Measures: Not Applicable - Core Measures Any of the following diagnoses?: none - VTE Discharge Requirements Deep Vein Thrombosis/Pulmonary Embolism Present on Admission: No Exam - Physical Exam Narrative exam: VITAL SIGNS: Reviewed. GENERAL: The patient appeared well nourished and normally developed. Vital signs as documented. HEAD: No signs of head trauma. EYES: Pupils are equal. Extraocular motions intact. EARS: Hearing grossly intact. MOUTH: Oropharynx is normal. NECK: No adenopathy, no JVD. CHEST: Chest with rales sounds bilaterally. CARDIAC: Regular rate and rhythm. S1 and S2, without murmurs, gallops, or rubs. VASCULAR: No Edema. Peripheral pulses normal and equal in all extremities. ABDOMEN: Soft, without detectable tenderness. No sign of distention. No rebound or guarding, and no masses palpated. Bowel Sounds normal. MUSCULOSKELETAL: Good range of motion of all major joints. Extremities without clubbing, cyanosis or edema. NEUROLOGIC EXAM: Alert and oriented x 3. No focal sensory or strength deficits. Speech normal. Follows commands. PSYCHIATRIC: Mood normal. SKIN: No rash or lesions. - Constitutional Vitals: Temp Pulse Resp BP Pulse Ox 98.9 F 81 20 107/52 97 09/30/16 10:42 09/30/16 10:42 09/30/16 10:42 09/30/16 10:42 09/29/16 22:00 Plan Activity: advance as tolerated, fall precautions Diet: diabetic Special Instructions: record daily BP diary, record blood sugar diary Additional Instructions: Must remain in a confined room. Family must use N-95 mask if coming into patients room. check liver function test in 1 week Follow up with: PRIMARY MD KAITY [Primary Care Provider] - 3-5 Days VANITA TOWNSEND MD [Staff Physician] - 7 Days KENYETTA HURST MD [Staff Physician] - 7 Days Prescriptions: Ethambutol [Myambutol] 800 mg PO QDAY #30 tablet Famotidine [Pepcid] 20 mg PO BID #30 tablet Insulin NPH/Regular [NovoLIN 70/30] 15 unit SUB-Q BIDDIAB #20 units Isoniazid 300 mg PO QDAY #30 tablet Pyrazinamide 1,000 mg PO QDAY #30 tablet Pyridoxine [Vitamin B-6] 50 mg PO QDAY #30 tablet Rifampin [Rifadin] 600 mg PO QDAY #30 capsule Other Discharge Orders: Glucometer (Amb) Location: Determined By Patient Glucometer supplies[Amb] Location: Determined By Patient
== END 2016-09-30 15:55 | disposition home or self-care (01) | DRG 177 ==
LOC: ED 00:44 → 4A 08:44 → CC2 10:34
PROVIDERS: ADMIT Internal Medicine; ATTEND Internal Medicine
PROC: 0B9F3ZX Drainage of Right Lower Lung Lobe, Percutaneous Approach, Diagnostic (ICD-10-PCS; principal; 2016-09-24)
DX: A15.0 Tuberculosis of lung (principal); E11.00 Type 2 diabetes mellitus with hyperosmolarity without nonketotic hyperglycemic-hyperosmolar coma (NKHHC); J96.00 Acute respiratory failure, unspecified whether with hypoxia or hypercapnia; E22.2 Syndrome of inappropriate secretion of antidiuretic hormone; R04.2 Hemoptysis; E46 Unspecified protein-calorie malnutrition; E87.2 Acidosis; J18.9 Pneumonia, unspecified organism; I10 Essential (primary) hypertension; R62.7 Adult failure to thrive; E11.65 Type 2 diabetes mellitus with hyperglycemia; R91.8 Other nonspecific abnormal finding of lung field; E87.6 Hypokalemia; E86.1 Hypovolemia; Z71.89 Other specified counseling; Z87.891 Personal history of nicotine dependence; Z68.20 Body mass index [BMI] 20.0-20.9, adult; Z83.3 Family history of diabetes mellitus
CPT/HCPCS: 36415; 71020; 71275; 74176; 74177; 77012; 80048; 80053; 81001; 82024; 82164; 82805; 82962; 83036; 83880; 84484; 85007; 85025; 85027; 85610; 86021; 86140; 86403; 87040; 87070; 87205; 87806; 88305; 88312; 88333; 93005; 93010; 93306; 94640; 94668; 94760; 96361; 96374; 96375; 99291; J1650; J1815; J2250; J2543; J2930; J3010; J7030; Q9967